=== PATIENT | male | born 1940 | race Caucasian/White ===

== ENCOUNTER → 2016-10-14 | Outpatient (CLI) | payer MEDICARE ==
[2016-10-14 10:00] LABS: ALT 37 U/L (21-72); AST 23 U/L (17-59); Alkaline Phosphatase 79 U/L (38-126); Anion Gap 12 mmol/L; Blood Urea Nitrogen 13 mg/dL (9-20); Calcium 9.6 mg/dL (8.4-10.2); Carbon Dioxide 29 mmol/L (22-30); Chloride 102 mmol/L (98-107); Cholesterol 120 mg/dL (<200); Glucose 107 mg/dL (74-99); HDL Cholesterol 40 mg/dL (40-60); Non-African American GFR(MDRD) >60 (>60 ml/min/1.73 sqM); Potassium 4.3 mmol/L (3.5-5.1); Sodium 143 mmol/L (137-145); Total Bilirubin 0.7 mg/dL (0.2-1.3); Total Protein 7.1 g/dL (6.3-8.2); Triglycerides 94 mg/dL (<150)
== END | disposition home or self-care (01) ==
LOC: LABWHC1 09:06
PROVIDERS: ATTEND Internal Medicine Interventional Cardiology
DX: E78.2 Mixed hyperlipidemia (principal)
CPT/HCPCS: 36415; 80053; 80061

== ENCOUNTER → 2017-01-10 | Outpatient (CLI) | payer MEDICARE ==
[2017-01-10 10:39] LABS: ALT 31 U/L (21-72); AST 22 U/L (17-59); Alkaline Phosphatase 88 U/L (38-126); Anion Gap 11 mmol/L; Blood Urea Nitrogen 17 mg/dL (9-20); Calcium 9.5 mg/dL (8.4-10.2); Carbon Dioxide 26 mmol/L (22-30); Chloride 106 mmol/L (98-107); Cholesterol 119 mg/dL (<200); Glucose 133 mg/dL (74-99); HDL Cholesterol 38 mg/dL (40-60); Non-African American GFR(MDRD) >60 (>60 ml/min/1.73 sqM); Potassium 4.6 mmol/L (3.5-5.1); Sodium 143 mmol/L (137-145); Total Bilirubin 0.7 mg/dL (0.2-1.3); Total Protein 7.1 g/dL (6.3-8.2); Triglycerides 99 mg/dL (<150)
== END ==
LOC: LABWHC1 08:47
PROVIDERS: ATTEND Internal Medicine Interventional Cardiology
DX: E78.2 Mixed hyperlipidemia (principal)
CPT/HCPCS: 36415; 80053; 80061

== ENCOUNTER 2017-02-25 11:44 | Inpatient (IN) | payer MEDICARE ==
[2017-02-25 20:44] LABS: Glucose,Whole Blood 136 mg/dL (75-99)
[2017-02-25] MEDS ORDERED: IV VANCOMYCIN PER PHARMACY 1 EACH MISC MISCELLANE PRN ×2 (21:13→21:19)
[2017-02-25] MEDS ORDERED: traMADol 50 MG TAB PO PRN (21:14)
[2017-02-25] MEDS ORDERED: NALOXONE 0.4 MG/ML 1 ML VIAL IV PRN (21:14)
[2017-02-25] MEDS: METOPROLOL TARTRATE 25 MG TAB PO SCH (21:56)
[2017-02-25] MEDS: SODIUM CHLORIDE 0.9% 1,000 ML IV SCH (21:57)
[2017-02-25] MEDS: ACETAMINOPHEN TAB 325 MG TAB PO PRN (21:57)
[2017-02-25 21:58] LABS: Basophils % (A) 0 %; CH 31.2; CHCM 33.6; Eosinophils % (A) 1 %; HCT 35.9 % (39.0-53.0); HDW 2.89; Luc # (Auto) 0.12; Luc % (Auto) 2; Lymphocytes # (A) 0.7 k/uL (1.0-4.8); Lymphocytes % (A) 10 %; MCH 31.1 pg (25.0-35.0); MCHC 33.3 g/dL (31.0-37.0); MCV 93.5 fL (80.0-100.0); Mean Platelet Volume 8.9; Monocytes # (A) 0.3 k/uL (0-1.0); Monocytes % (A) 5 %; Neutrophils # (A) 5.1 k/uL (1.3-7.7); Neutrophils % (A) 82 %; RBC 3.84 m/uL (4.30-5.90); WBC 6.2 k/uL (3.8-10.6); WBC (Perox) 6.46
[2017-02-25] MEDS ORDERED: VANCOMYCIN 1,250 MG in SODIUM CHLORIDE 0.9% 250 ML IVPB ONE (22:00)
[2017-02-25 22:03] LABS: ALT 55 U/L (21-72); AST 48 U/L (17-59); Alkaline Phosphatase 68 U/L (38-126); Anion Gap 8 mmol/L; Blood Urea Nitrogen 11 mg/dL (9-20); Calcium 8.5 mg/dL (8.4-10.2); Carbon Dioxide 26 mmol/L (22-30); Chloride 104 mmol/L (98-107); Glucose 156 mg/dL (74-99); Non-African American GFR(MDRD) >60 (>60 ml/min/1.73 sqM); Potassium 3.9 mmol/L (3.5-5.1); Sodium 138 mmol/L (137-145); Total Bilirubin 0.8 mg/dL (0.2-1.3); Total Protein 6.2 g/dL (6.3-8.2)
--- NOTE | 2017-02-25 22:32 | XR ---
EXAM: XR Chest, 2 Views CLINICAL HISTORY: Reason: CHF TECHNIQUE: Frontal and lateral views of the chest. COMPARISON: 08/09/16. FINDINGS: Lungs: Pulmonary vascular congestion. Mild basilar opacities may represent atelectasis, infiltrate, or edema. Pleural space: Small left pleural effusion. Heart: Upper normal. Mediastinum: Stable. Bones/joints: No acute fracture. Other findings: Stable postsurgical changes in the chest. IMPRESSION: Pulmonary vascular congestion. Mild basilar opacities may represent atelectasis, infiltrate, or edema. Small left pleural effusion.
[2017-02-25] MEDS: ceFAZolin 1,000 MG in DEXTROSE/WATER 1 50ML.BAG IVPB SCH (23:39)
[2017-02-26] MEDS: HEPARIN SODIUM,PORCINE 5,000 UNIT/ML 1 ML VIAL SQ SCH ×4 (00:09→23:17)
[2017-02-26] MEDS ORDERED: VANCOMYCIN 1,250 MG in SODIUM CHLORIDE 0.9% 250 ML IVPB SCH ×2 (01:00→12:00)
[2017-02-26 06:00] LABS: Glucose,Whole Blood 132 mg/dL (75-99)
[2017-02-26] MEDS: SODIUM CHLORIDE 0.9% 1,000 ML IV SCH (06:19)
[2017-02-26 06:32] LABS: Basophils % (A) 0 %; CH 30.9; CHCM 33.4; Eosinophils # (A) 0.1 k/uL (0-0.7); Eosinophils % (A) 1 %; HCT 33.5 % (39.0-53.0); HDW 2.97; HGB 11.2 gm/dL (13.0-17.5); Luc # (Auto) 0.18; Luc % (Auto) 3; Lymphocytes # (A) 0.8 k/uL (1.0-4.8); Lymphocytes % (A) 15 %; MCH 31.2 pg (25.0-35.0); MCHC 33.5 g/dL (31.0-37.0); MCV 92.9 fL (80.0-100.0); Mean Platelet Volume 8.5; Monocytes # (A) 0.4 k/uL (0-1.0); Monocytes % (A) 7 %; Neutrophils % (A) 73 %; RBC 3.61 m/uL (4.30-5.90); WBC 5.4 k/uL (3.8-10.6); WBC (Perox) 5.91
[2017-02-26 06:41] LABS: ALT 66 U/L (21-72); AST 58 U/L (17-59); Alkaline Phosphatase 61 U/L (38-126); Anion Gap 9 mmol/L; Blood Urea Nitrogen 10 mg/dL (9-20); Calcium 8.3 mg/dL (8.4-10.2); Carbon Dioxide 24 mmol/L (22-30); Chloride 108 mmol/L (98-107); Glucose 129 mg/dL (74-99); Non-African American GFR(MDRD) >60 (>60 ml/min/1.73 sqM); Potassium 3.7 mmol/L (3.5-5.1); Sodium 141 mmol/L (137-145); Total Bilirubin 0.7 mg/dL (0.2-1.3); Total Protein 5.6 g/dL (6.3-8.2)
[2017-02-26] MEDS: INSULIN LISPRO (humaLOG) 300 UNIT/3 ML VIAL SQ SCH ×4 (07:08→21:43)
[2017-02-26] MEDS: ASPIRIN 325 MG TAB PO SCH (09:16)
[2017-02-26] MEDS: LISINOPRIL 5 MG TAB PO SCH (09:16)
[2017-02-26] MEDS: METOPROLOL TARTRATE 25 MG TAB PO SCH ×3 (09:16→20:02)
[2017-02-26] MEDS: ceFAZolin 1,000 MG in DEXTROSE/WATER 1 50ML.BAG IVPB SCH (09:16)
[2017-02-26] MEDS: FAMOTIDINE 20 MG TAB PO SCH ×2 (09:16→20:03)
[2017-02-26] MEDS: CLOPIDOGREL 75 MG TAB PO SCH (10:10)
[2017-02-26 12:29] LABS: Glucose,Whole Blood 177 mg/dL (75-99)
[2017-02-26 14:08] LABS: Hemoglobin A1C 5.8 % (4.2-6.1)
[2017-02-26] MEDS ORDERED: FUROSEMIDE 10 MG/ML 4 ML VIAL IV STA ×2 (15:12→15:15)
[2017-02-26] MEDS ORDERED: ceFAZolin 2,000 MG in DEXTROSE/WATER 1 50ML.BAG IVPB SCH (16:19)
[2017-02-26 18:43] LABS: Glucose,Whole Blood 192 mg/dL (75-99)
[2017-02-26] MEDS: ceFAZolin 2 GM in SODIUM CHLORIDE 0.9% 100 ML IVPB SCH ×2 (18:47→23:17)
[2017-02-26] MEDS: ACETAMINOPHEN TAB 325 MG TAB PO PRN (18:49)
[2017-02-26] MEDS: ATORVASTATIN 20 MG TAB PO SCH (20:02)
[2017-02-26] MEDS: LINAGLIPTIN 5 MG TABLET PO SCH (20:02)
--- NOTE | 2017-02-26 20:12 | HP ---
DATE OF ADMISSION: 02/25/2017 The patient is a 76-year-old gentleman who was transferred from [facility]. The patient was seen in [facility] for his right lower limb cellulitis and patient was treated with initially ceftriaxone followed by vancomycin. Patient's symptoms started on Tuesday with severe pain and localized of temperature and patient had lactic acidosis and sepsis secondary to right lower limb cellulitis. Patient was given IV fluids because of lactic acidosis. Subsequently patient went into pulmonary edema and congestive heart failure exacerbation. Patient's ejection fraction in the past was essentially within normal limits. Patient probably has diastolic dysfunction and the patient yesterday had lactic acidosis because of which we gave IV fluids which resulted in pulmonary edema. Patient was started on Lasix today and the patient was resumed on cefazolin and vancomycin and infectious disease was consulted and patient may need daptomycin as patient did not have any significant improvement. Cellulitis since yesterday. It improved temporarily and has gotten worse and patient's cellulitis is quite extensive involving the whole right leg. Patient has recent CABG . Metformin is also being held because of lactic acidosis. REVIEW OF SYSTEMS: CONSTITUTIONAL: No fever, no malaise, no fatigue. HEENT: No recent visual problems or hearing problems. Denied any sore throat. CARDIOVASCULAR: As mentioned above. PULMONARY: As mentioned earlier. GASTROINTESTINAL: No diarrhea, no nausea, no vomiting, no abdominal pain. Normoactive bowel sounds. NEUROLOGICAL: No headaches, no weakness, no numbness. HEMATOLOGICAL: Denies any bleeding or petechiae. GENITOURINARY: Denies any burning micturition, frequency, or urgency. MUSCULOSKELETAL/RHEUMATOLOGICAL: Right lower extremity as mentioned above. ENDOCRINE: Denies any polyuria or polydipsia. The rest of the 14 point review of systems is negative. Home medications include: 1. Januvia. 2. Metformin. 3. Atorvastatin. 4. Prednisone. 5. Vitamin B complex. 6. Multivitamin. 7. Metoprolol 25 p.o. t.i.d. 8. Meloxicam. 9. Lisinopril. 10. Plavix. 11. Aspirin. PAST MEDICAL HISTORY: Patient has a recent coronary artery disease with a recent CABG, type 2 diabetes mellitus, hyperlipidemia, hypertension, polymyalgia rheumatica, the patient underwent CABG in month of August. Patient has aortic aneurysm repair as well. Patient had an orthopedic surgery in the past. Former smoker. Denied any alcohol abuse or any drug abuse. FAMILY HISTORY: Significant for CVA, TIA. PHYSICAL EXAMINATION: VITAL SIGNS: Temperature is 97.9, pulse of 70, respirations 16, blood pressure is 138/78, saturating at 96% on 2 L O2 nasal cannula. GENERAL: The patient is alert and oriented x3, not in any acute distress. Well developed, well nourished. HEENT: Pupils are round and equally reacting to light. EOMI. No scleral icterus. No conjunctival pallor. Normocephalic, atraumatic. No pharyngeal erythema. No thyromegaly. CARDIOVASCULAR: S1 and S2 present. No murmurs, rubs, or gallops. PULMONARY: Chest is clear to auscultation, no wheezing or crackles. ABDOMEN: Soft, nontender, nondistended, normoactive bowel sounds. No palpable organomegaly. MUSCULOSKELETAL: No joint swelling or deformity. EXTREMITIES: Patient has extensive cellulitis with localized of temperature edema and tenderness of the right lower extremity extending from the ankle area up to the knee. Circumferential. NEUROLOGICAL: Gross neurological examination did not reveal any focal deficits. SKIN: No rashes. LABORATORY DATA: CBC, CMP are abnormal for elevated chloride secondary to IV fluids. Lactic acid is 0.9. BNP is 8440. Chest x-ray did show pulmonary edema and pulmonary congestion. Patient was started on Lasix. ASSESSMENT AND PLAN: 1. Extensive cellulitis of the right lower extremity. Infectious diseases was consulted because patient did not improve with multiple antibiotics. Patient is presently on vancomycin and cefazolin, may need daptomycin instead. Blood cultures were obtained. We will also follow the blood cultures in [facility]. 2. Congestive heart failure, current diastolic dysfunction with acute exacerbation secondary to IV fluids. Patient will be started on 40 IV b.i.d. of Lasix and once his respiratory status improves, it will be switched to 40 mg oral daily and patient will repeat electrolytes tomorrow. 3. Diabetes mellitus, continue metformin because of lactic acidosis and patient will be started on sliding scale insulin and patient will be continued on Januvia. 4. Hyperlipidemia. Continue atorvastatin. 5. Recent coronary artery disease. 6. History of coronary artery bypass graft. 7. Hypertension. Lisinopril will be continued.
[2017-02-26] MEDS ORDERED: FUROSEMIDE 10 MG/ML 4 ML VIAL IV SCH (21:00)
[2017-02-26 21:41] LABS: Glucose,Whole Blood 130 mg/dL (75-99)
[2017-02-27] MEDS: ACETAMINOPHEN TAB 325 MG TAB PO PRN ×2 (01:33→20:58)
[2017-02-27 05:56] LABS: Glucose,Whole Blood 129 mg/dL (75-99)
[2017-02-27 06:11] LABS: CH 30.9; CHCM 33.8; HCT 34.2 % (39.0-53.0); HDW 3.06; HGB 11.5 gm/dL (13.0-17.5); MCH 30.9 pg (25.0-35.0); MCHC 33.7 g/dL (31.0-37.0); MCV 91.8 fL (80.0-100.0); RBC 3.72 m/uL (4.30-5.90); WBC 5.6 k/uL (3.8-10.6)
[2017-02-27] MEDS: INSULIN LISPRO (humaLOG) 300 UNIT/3 ML VIAL SQ SCH ×4 (06:24→20:58)
[2017-02-27 06:26] LABS: Anion Gap 9 mmol/L; Blood Urea Nitrogen 11 mg/dL (9-20); Calcium 8.8 mg/dL (8.4-10.2); Carbon Dioxide 27 mmol/L (22-30); Chloride 105 mmol/L (98-107); Glucose 122 mg/dL (74-99); Non-African American GFR(MDRD) >60 (>60 ml/min/1.73 sqM); Potassium 3.7 mmol/L (3.5-5.1); Sodium 141 mmol/L (137-145)
[2017-02-27] MEDS: FUROSEMIDE 10 MG/ML 4 ML VIAL IV SCH ×2 (06:45→16:15)
[2017-02-27] MEDS: HYDROcodone/APAP 5-325MG 1 EACH TAB PO PRN ×2 (06:46→16:37)
[2017-02-27] MEDS: ceFAZolin 2 GM in SODIUM CHLORIDE 0.9% 100 ML IVPB SCH ×3 (08:13→23:49)
[2017-02-27] MEDS: HEPARIN SODIUM,PORCINE 5,000 UNIT/ML 1 ML VIAL SQ SCH ×3 (08:13→23:49)
[2017-02-27] MEDS: LISINOPRIL 5 MG TAB PO SCH (08:14)
[2017-02-27] MEDS: ASPIRIN 81 MG CHEW PO SCH (08:14)
[2017-02-27] MEDS: METOPROLOL TARTRATE 25 MG TAB PO SCH ×3 (08:14→20:58)
[2017-02-27] MEDS: FAMOTIDINE 20 MG TAB PO SCH ×2 (08:14→20:58)
[2017-02-27] MEDS: CLOPIDOGREL 75 MG TAB PO SCH (08:14)
[2017-02-27 10:42] VITALS: BMI 27.3
[2017-02-27] MEDS ORDERED: VANCOMYCIN TROUGH DUE 1 EACH MISC MISCELLANE ONE (11:00)
[2017-02-27 11:45] LABS: Glucose,Whole Blood 172 mg/dL (75-99)
--- NOTE | 2017-02-27 13:06 | CONS ---
DATE OF CONSULTATION: 02/26/2017. REASON FOR CONSULTATION: Right lower extremity cellulitis. HISTORY OF PRESENT ILLNESS: The patient is a 76 -year-old male who apparently has been to [place] to his cottage. However, on arrival there, the patient apparently seemed to have a problem with fever, rigors or chills for which the patient went to the [facility] and the patient has been evaluated by the physician at that facility. The patient did have lower extremity Doppler that was negative for DVT. Chest CT was negative for PE. The patient has been diagnosed with lower extremity cellulitis. Has been treated with Rocephin, however, did not have any improvement. Subsequently switched to Vancomycin and Cefazolin. However, per family insistence, the patient has been transferred to [facility] for further work-up. The patient was continued on Vanco and Cefazolin. I was asked to see the patient for further recommendations. Patient overall fever has slightly improved. The patient denies significant chest pain or shortness of breath or cough. The patient denies any abdominal pain, nausea or vomiting or any diarrhea. Right leg swelling and redness persists though slightly decreased. The patient did have some pain especially when he stands or walks on it, lying in the bed. or touched. There is no pain. There is no significant drainage. The patient did have history of chronic swelling right leg because of the vein taken out for his bypass surgery. REVIEW OF SYSTEMS: CONSTITUTIONAL: Positive for weakness and fever. EYES: No complaint. ENT: No complaint. RESPIRATORY: No complaint. CARDIOVASCULAR: No complaint. GENITOURINARY: No complaint. GASTROINTESTINAL: No complaint. MUSCULOSKELETAL: No complaint. INTEGUMENTARY: As per HPI. PSYCHOLOGIC: No complaint. ENDOCRINE: No complaint. NEUROLOGICAL: No complaint. Past medical history significant for type 2 diabetes mellitus, hypertension, hyperlipidemia, polymyalgia rheumatica, coronary artery disease. PAST SURGICAL HISTORY: Significant for coronary artery bypass grafting, abdominal aortic aneurysm repair. SOCIAL HISTORY: Remote history of smoking. No drinking or drug use. FAMILY HISTORY: Positive for CVA and TIA. ALLERGIES: PENICILLIN, has tolerated cephalosporin without any problem. Medications currently include the patient is on: 1. Tylenol. 2. [place]. 3. Aspirin. 4. Lipitor. 5. Cefazolin 1 gram q.8. 6. He is on Plavix. 7. Pepcid. 8. Lasix. 9. Heparin. 10. Humalog. 12. Zestril. 13. Lopressor. 14. Ultram. 15. Vancomycin, pharmacy to dose. On examination, blood pressure 176/83 with a pulse of 71, temperature 98.5. She is 98% on room air. General description is an elderly male, lying in bed in no distress, no tachypnea or accessory muscles of respiration use. HEENT examination shows pallor. There is no scleral icterus. Oral mucous membranes dry. NECK: Trachea central. There is no thyromegaly. LUNGS: Unlabored breathing. Clear to auscultation anteriorly. No wheeze or crackle. HEART: S1, S2. Regular rate and rhythm. ABDOMEN: Soft, no tenderness. No guarding or rigidity. EXTREMITIES: Right leg swelling and redness mostly diffuse with warm to touch. No skin breakdown. No evidence of any athlete's foot. NEUROLOGICAL: The patient is awake, alert, and oriented times three. Mood and affect normal. LABS: Hemoglobin 11.1, white count 5.4 with a BUN of 10, creatinine 0.44. DIAGNOSTIC IMPRESSION AND PLAN: Patient with acute right lower extremity cellulitis in a patient who did have a fever of 102 degrees Fahrenheit with diffuse swelling and redness likely suspicious for a streptococcal cellulitis in a patient who did have some chronic swelling in that leg as the vein has been taken out for his bypass surgery. PLAN: 1. We will increase Cefazolin to 2 gm every eight hours and discontinue the vancomycin as less risk for Methicillin-resistant Staph aureus infection. 2. KIMI wrap From just above the toe to below the knee. 3. Marked the area of redness. 4. We will follow up on the clinical condition and cultures to further adjust medications if needed. Thank you for the consultation. We will follow this patient along with you. was present at beside. All her questions and concerns were answered. JAI
[2017-02-27 20:39] LABS: Glucose,Whole Blood 210 mg/dL (75-99)
[2017-02-27] MEDS: ATORVASTATIN 20 MG TAB PO SCH (20:58)
[2017-02-27] MEDS: LINAGLIPTIN 5 MG TABLET PO SCH (20:58)
--- NOTE | 2017-02-27 22:57 | PN ---
DATE OF SERVICE: 02/27/2017 The patient's cellulitis did improve. The patient is presently on vanco and cefazolin. Seizure symptoms did improve as well. Patient's echocardiogram showed normal ejection fraction in the past. Patient is otherwise clinically doing well. REVIEW OF SYSTEMS: CARDIOVASCULAR: No chest pain, no orthopnea, no PND, no palpitations. PULMONARY: Denied any shortness of breath. No cough or hemoptysis. GASTROINTESTINAL: No diarrhea, nausea or vomiting. No abdominal pain. Normoactive bowel sounds. NEUROLOGIC: No headaches, no weakness, no numbness. Medications were reviewed. PHYSICAL EXAMINATION: VITAL SIGNS: Temperature 96.6, pulse 67, respirations 18, blood pressure 181/88, saturating at 97% on 2 L nasal cannula. GENERAL: The patient is alert and oriented x3, not in any acute distress. Well developed, well nourished. HEENT: Pupils are round and equally reacting to light. EOMI. No scleral icterus. No conjunctival pallor. Normocephalic, atraumatic. No pharyngeal erythema. No thyromegaly. Elevated JVD. CARDIOVASCULAR: S1 and S2 present. No murmurs, rubs, or gallops. PULMONARY: Chest is clear to auscultation, no wheezing or crackles. ABDOMEN: Soft, nontender, nondistended, normoactive bowel sounds. No palpable organomegaly. MUSCULOSKELETAL: No joint swelling or deformity. EXTREMITIES: Right lower extremity significantly improved. Still has some redness and swelling of the right lower extremity. NEUROLOGICAL: Gross neurological examination did not reveal any focal deficits. SKIN: No rashes. LABORATORY DATA: CBC, CMP, no significant abnormality was appreciated. ASSESSMENT AND PLAN: 1. Extensive cellulitis of the right lower extremity which is improving at this point of time. Patient will be continued on vancomycin and cefazolin. 2. Congestive heart failure with chronic diastolic dysfunction which improved. Continue with IV Lasix for today. We will switch over to oral Lasix tomorrow. The patient has still has little bit of JVD. 3. Diabetes mellitus. Patient is not a candidate for metformin. I believe lactic acidosis actually is mostly due to metformin rather than severe sepsis. 4. Hyperlipidemia. Continue with atorvastatin. 5. Coronary artery disease with recent CABG. 6. Hypertension for which patient is on lisinopril, which will be continued.
[2017-02-28] MEDS: HYDROcodone/APAP 5-325MG 1 EACH TAB PO PRN ×3 (05:33→14:15)
[2017-02-28 06:02] LABS: Glucose,Whole Blood 120 mg/dL (75-99)
[2017-02-28 06:22] LABS: Anion Gap 10 mmol/L; Blood Urea Nitrogen 12 mg/dL (9-20); Calcium 8.9 mg/dL (8.4-10.2); Carbon Dioxide 27 mmol/L (22-30); Chloride 103 mmol/L (98-107); Glucose 118 mg/dL (74-99); Non-African American GFR(MDRD) >60 (>60 ml/min/1.73 sqM); Potassium 3.8 mmol/L (3.5-5.1); Sodium 140 mmol/L (137-145)
[2017-02-28] MEDS: FUROSEMIDE 10 MG/ML 4 ML VIAL IV SCH ×2 (06:56→17:19)
[2017-02-28] MEDS: INSULIN LISPRO (humaLOG) 300 UNIT/3 ML VIAL SQ SCH ×4 (06:57→21:53)
[2017-02-28] MEDS: CLOPIDOGREL 75 MG TAB PO SCH (08:07)
[2017-02-28] MEDS: LISINOPRIL 10 MG TAB PO SCH (08:07)
[2017-02-28] MEDS: ceFAZolin 2 GM in SODIUM CHLORIDE 0.9% 100 ML IVPB SCH ×3 (08:07→22:55)
[2017-02-28] MEDS: FAMOTIDINE 20 MG TAB PO SCH ×2 (08:07→20:22)
[2017-02-28] MEDS: ASPIRIN 81 MG CHEW PO SCH (08:07)
[2017-02-28] MEDS: HEPARIN SODIUM,PORCINE 5,000 UNIT/ML 1 ML VIAL SQ SCH ×2 (08:07→17:19)
[2017-02-28] MEDS: METOPROLOL TARTRATE 25 MG TAB PO SCH ×3 (08:07→20:22)
--- NOTE | 2017-02-28 11:16 | PN ---
DATE OF SERVICE: 02/27/2017 Reason for follow-up is right lower extremity cellulitis. INTERVAL HISTORY: The patient is afebrile. Breathing comfortably. Denies significant chest pain. No cough. Denies pain right leg area. No worsening of the redness. No diarrhea. On antibiotics. On examination, blood pressure 181/88 with a pulse of 79, temperature 96.6. He is 97% on room air. General description is an elderly male, lying in bed in no distress. RESPIRATORY SYSTEM: Unlabored breathing. Clear to auscultation anteriorly. HEART: S1, S2. Regular rate and rhythm. ABDOMEN: Soft, no tenderness. Right leg swelling and redness has slightly improved. LABS: Hemoglobin is 11.5, white count 5.6 with a BUN of 11, creatinine 0.50. DIAGNOSTIC IMPRESSION AND PLAN: Patient with acute right lower extremity cellulitis, likely streptococcal disease. The patient is to continue with cefazolin. RN has been advised to apply the Lane wrap appropriately to prevent any uneven swelling or skin breakdown. We will reevaluate the patient tomorrow. Family present at beside. All their questions were answered. JAI
--- NOTE | 2017-02-28 11:48 | P.GSCN ---
<Reina Vincent - Last Filed: 02/28/17 11:48> History of Present Illness Consult date: 02/28/17 Reason for Consult: Recent CABG, patient known to us. Requesting physician: Get Tapia History of present illness: This 76-year-old gentleman was previously being treated at a hospital in [place] for right lower extremity cellulitis. He was initially being treated with ceftriaxone and vancomycin. He was thought to have sepsis and lactic acidosis secondary to the cellulitis. Following sepsis protocol, the patient was given large doses of IV fluids and subsequently developed pulmonary edema, probable exacerbation of congestive heart failure. The patient was transferred [facility] on 02/25/2017. He was given IV Lasix with excellent diuresis and restarted on his antibiotics. Cardiothoracic surgery was consulted as this gentleman had open-heart surgery in August 2016. Review of Systems 14 point review systems was completed and was negative except as noted. - Cardiovascular Reports as per HPI - Respiratory Reports as per HPI - Integumentary Integumentary Comment(s): Right leg currently Lane wrapped. Patient states he developed redness and edema overnight. States it is possible he may have had a bug bite. Past Medical History Past Medical History: No Reported History, Chest Pain / Angina, Diabetes Mellitus, Hyperlipidemia, Hypertension Additional Past Medical History / Comment(s): polymyalgia rheumatica, coronary artery bypass 5 vessel 08-05-2016, Aortic Aneurysm repair 12-06-2016 [place] History of Any Multi-Drug Resistant Organisms: None Reported Past Surgical History: Coronary Bypass/CABG, Orthopedic Surgery Additional Past Surgical History / Comment(s): LEFT EYE SURGERY, LEFT KNEE SURGERY Past Anesthesia/Blood Transfusion Reactions: No Reported Reaction Past Psychological History: No Psychological Hx Reported Smoking Status: Former smoker Past Alcohol Use History: Daily Past Drug Use History: None Reported - Past Family History Father Family Medical History: CVA/TIA Mother Family Medical History: Diabetes Mellitus Brother(s) Family Medical History: Myocardial Infarction ([place]) Medications and Allergies Home Medications Medication Instructions Recorded Confirmed Type Glucosamine/Chondr Fry A Sod [Osteo 1 tab PO DAILY 08/02/16 02/25/17 History Bi-Flex Caplet] Meloxicam [Mobic] 7.5 mg PO BID 08/02/16 02/25/17 History Multivit-Min/FA/Lycopen/Lutein 1 tab PO DAILY 08/02/16 02/25/17 History [Centrum Silver Tablet] Vitamin B Complex 1 cap PO DAILY 08/02/16 02/25/17 History Atorvastatin [Lipitor] 20 mg PO HS 09/27/16 02/25/17 History metFORMIN HCL 500 mg PO HS 02/25/17 02/25/17 History predniSONE 2.5 mg PO MOWEFR 02/25/17 02/25/17 History sitaGLIPtin PHOSPHATE [Januvia] 50 mg PO HS 02/25/17 02/25/17 History Allergies Allergy/AdvReac Type Severity Reaction Status Date / Time Penicillins Allergy Unknown Verified 02/25/17 21:00 Surgical - Exam Vital Signs Temp Pulse Resp BP Pulse Ox 100.6 F H 82 21 152/92 97 02/25/17 21:00 02/25/17 21:00 02/25/17 21:00 02/25/17 21:00 02/25/17 21:00 - General well developed, well nourished, no distress - Eyes PERRL, normal ocular movement - ENT no hearing loss - Neck trachea midline - Respiratory normal expansion, normal respiratory effort, clear to auscultation - Cardiovascular Sternum stable. Rhythm: regular Heart Sounds: normal: S1, S2 - Abdomen Abdomen: soft, non tender, bowel sounds - Genitourinary Deferred - Rectum Deferred - Integumentary Anterior chest wall incision scar well healed - Neurologic normal coordination, normal sensation - Psychiatric oriented to time, oriented to person, oriented to place, speech is normal, memory intact Results - Labs 02/27/17 06:00 02/28/17 05:26 Abnormal Lab Results - Last 24 Hours (Table) 02/27/17 02/27/17 02/28/17 Range/Units 11:28 20:38 05: Creatinine 0.50 L (0.66-1.25) mg/dL Glucose 118 H (74-99) mg/dL POC Glucose (mg/dL) 172 H 210 H (75-99) mg/dL 02/28/17 Range/Units 06:00 Creatinine (0.66-1.25) mg/dL Glucose (74-99) mg/dL POC Glucose (mg/dL) 120 H (75-99) mg/dL Microbiology - Last 24 Hours (Table) 02/25/17 21:35 Blood Culture - Preliminary Blood No Growth after 48 hours Diabetes panel 02/28/17 Range/Units 05:26 Sodium 140 (137-145) mmol/L Potassium 3.8 (3.5-5.1) mmol/L Chloride 103 (98-107) mmol/L Carbon Dioxide 27 (22-30) mmol/L BUN 12 (9-20) mg/dL Creatinine 0.50 L (0.66-1.25) mg/dL Glucose 118 H (74-99) mg/dL Calcium 8.9 (8.4-10.2) mg/dL Calcium panel 02/28/17 Range/Units 05:26 Calcium 8.9 (8.4-10.2) mg/dL Pituitary panel 02/28/17 Range/Units 05:26 Sodium 140 (137-145) mmol/L Potassium 3.8 (3.5-5.1) mmol/L Chloride 103 (98-107) mmol/L Carbon Dioxide 27 (22-30) mmol/L BUN 12 (9-20) mg/dL Creatinine 0.50 L (0.66-1.25) mg/dL Glucose 118 H (74-99) mg/dL Calcium 8.9 (8.4-10.2) mg/dL Adrenal panel 02/28/17 Range/Units 05:26 Sodium 140 (137-145) mmol/L Potassium 3.8 (3.5-5.1) mmol/L Chloride 103 (98-107) mmol/L Carbon Dioxide 27 (22-30) mmol/L BUN 12 (9-20) mg/dL Creatinine 0.50 L (0.66-1.25) mg/dL Glucose 118 H (74-99) mg/dL Calcium 8.9 (8.4-10.2) mg/dL - Imaging Chest x-ray: image reviewed Assessment and Plan (1) CHF (congestive heart failure) Status: Acute (2) Cellulitis Status: Acute (3) Diabetes Status: Acute (4) HTN (hypertension) Status: Acute (5) Hyperlipemia Status: Acute (6) S/P CABG (coronary artery bypass graft) Status: Acute Plan: 1. Continue aspirin, statin, Plavix, heparin subcu, lisinopril, beta cody. 2. Continue Lasix. 3. Encourage incentive spirometry use. 4. Increase activity, encourage ambulation. 5. Medical management/antibiotic therapy per primary care service. 6. Labs/diagnostics reviewed. Will discuss the case with cardiothoracic surgeon. Likely no intervention necessary from our standpoint. We will continue to see as needed. Thank you Dr. Tapia for this consult. Please contact us with any questions or concerns. Time with Patient: Greater than 30 <Scott Cooper - Last Filed: 02/28/17 12:15> Surgical - Exam Vital Signs Temp Pulse Resp BP Pulse Ox 100.6 F H 82 21 152/92 97 02/25/17 21:00 02/25/17 21:00 02/25/17 21:00 02/25/17 21:00 02/25/17 21:00 Results - Labs 02/27/17 06:00 02/28/17 05:26 Abnormal Lab Results - Last 24 Hours (Table) 02/27/17 02/28/17 02/28/17 Range/Units 20:38 05: 06:00 Creatinine 0.50 L (0.66-1.25) mg/dL Glucose 118 H (74-99) mg/dL POC Glucose (mg/dL) 210 H 120 H (75-99) mg/dL 02/28/17 Range/Units 11:50 Creatinine (0.66-1.25) mg/dL Glucose (74-99) mg/dL POC Glucose (mg/dL) 163 H (75-99) mg/dL Microbiology - Last 24 Hours (Table) 02/25/17 21:35 Blood Culture - Preliminary Blood No Growth after 48 hours Diabetes panel 02/28/17 Range/Units 05:26 Sodium 140 (137-145) mmol/L Potassium 3.8 (3.5-5.1) mmol/L Chloride 103 (98-107) mmol/L Carbon Dioxide 27 (22-30) mmol/L BUN 12 (9-20) mg/dL Creatinine 0.50 L (0.66-1.25) mg/dL Glucose 118 H (74-99) mg/dL Calcium 8.9 (8.4-10.2) mg/dL Calcium panel 02/28/17 Range/Units 05:26 Calcium 8.9 (8.4-10.2) mg/dL Pituitary panel 02/28/17 Range/Units 05:26 Sodium 140 (137-145) mmol/L Potassium 3.8 (3.5-5.1) mmol/L Chloride 103 (98-107) mmol/L Carbon Dioxide 27 (22-30) mmol/L BUN 12 (9-20) mg/dL Creatinine 0.50 L (0.66-1.25) mg/dL Glucose 118 H (74-99) mg/dL Calcium 8.9 (8.4-10.2) mg/dL Adrenal panel 02/28/17 Range/Units 05:26 Sodium 140 (137-145) mmol/L Potassium 3.8 (3.5-5.1) mmol/L Chloride 103 (98-107) mmol/L Carbon Dioxide 27 (22-30) mmol/L BUN 12 (9-20) mg/dL Creatinine 0.50 L (0.66-1.25) mg/dL Glucose 118 H (74-99) mg/dL Calcium 8.9 (8.4-10.2) mg/dL Assessment and Plan Plan: The patient was seen and examined. I agree with the above assessment and plan. He is well-known to our service from previous coronary artery bypass surgery performed in August 2016. He appears fully recovered from that surgery and his sternal wound is completely healed. He was readmitted with cellulitis of his right lower extremity which I believe is unrelated to his surgery. He is currently on antibiotics as directed by the primary service. There is no need for intervention on my part. Thank you for allowing me to participate in the care of this patient.
[2017-02-28 11:51] LABS: Glucose,Whole Blood 163 mg/dL (75-99)
--- NOTE | 2017-02-28 14:18 | XR ---
EXAMINATION TYPE: XR chest 1V DATE OF EXAM: 02/28/2017 1:55 PM COMPARISON: 02/25/2017 HISTORY: Cellulitis and the heart failure TECHNIQUE: Single frontal view of the chest is obtained. FINDINGS: There is no heart failure nor confluent pneumonic infiltrate. There are sternal wires. The re are chest leads. I see no definite pleural effusion. IMPRESSION: No active cardiopulmonary disease. There is clearing of the heart failure compared to la st exam.
[2017-02-28 16:45] LABS: Glucose,Whole Blood 101 mg/dL (75-99)
[2017-02-28] MEDS: CLINDAMYCIN 600 MG in DEXTROSE 5% IN WATER 50 ML IVPB SCH ×2 (18:33)
[2017-02-28] MEDS: LINAGLIPTIN 5 MG TABLET PO SCH (20:22)
[2017-02-28] MEDS: ATORVASTATIN 20 MG TAB PO SCH (20:22)
[2017-02-28 20:49] LABS: Glucose,Whole Blood 172 mg/dL (75-99)
--- NOTE | 2017-02-28 20:57 | PN ---
The patient is clinically doing well today and his redness improved and heart failure improved. REVIEW OF SYSTEMS: CARDIOVASCULAR: No chest pain, no orthopnea, no PND, no palpitations. PULMONARY: Denied any shortness of breath. No cough or hemoptysis. GASTROINTESTINAL: No diarrhea, nausea or vomiting. No abdominal pain. Normoactive bowel sounds. NEUROLOGIC: No headaches, no weakness, no numbness. Medications were reviewed. PHYSICAL EXAMINATION: VITAL SIGNS: Temperature 96.8, pulse of 67, respiratory rate of 18, blood pressure 142/78, saturating at 94% on room air. GENERAL: The patient is alert and oriented x3, not in any acute distress. Well developed, well nourished. HEENT: Pupils are round and equally reacting to light. EOMI. No scleral icterus. No conjunctival pallor. Normocephalic, atraumatic. No pharyngeal erythema. No thyromegaly. CARDIOVASCULAR: S1 and S2 present. Patient still has ( ) significantly improved. PULMONARY: Chest is clear to auscultation, no wheezing or crackles. ABDOMEN: Soft, nontender, nondistended, normoactive bowel sounds. No palpable organomegaly. MUSCULOSKELETAL: No joint swelling or deformity. EXTREMITIES: Right lower extremity cellulitis did improve. NEUROLOGICAL: Gross neurological examination did not reveal any focal deficits. SKIN: No rashes. ASSESSMENT AND PLAN: 1. ( ) cellulitis which is improving. Continue vancomycin and Cefazolin. 2. Congestive heart failure, chronic diastolic dysfunction with acute exacerbation. Continue with one more day of Lasix. Patient will be switched to oral Lasix tomorrow. 3. Diabetes mellitus type 2. The patient has lactic acidosis, will not be a candidate for most probably he will not be a candidate for metformin. Will continue sliding scale for now. Blood sugars are fairly well controlled. 4. Hyperlipidemia continue with atorvastatin. 5. Coronary artery disease with recent coronary artery bypass grafting. 6. Hypertension, for which patient is on Lisinopril which we will be continued.
[2017-02-28] MEDS: ACETAMINOPHEN TAB 325 MG TAB PO PRN (21:54)
[2017-03-01] MEDS: CLINDAMYCIN 600 MG in DEXTROSE 5% IN WATER 50 ML IVPB SCH ×6 (00:17→15:00)
[2017-03-01] MEDS: HEPARIN SODIUM,PORCINE 5,000 UNIT/ML 1 ML VIAL SQ SCH ×3 (00:19→15:58)
[2017-03-01] MEDS: HYDROcodone/APAP 5-325MG 1 EACH TAB PO PRN ×2 (02:27→10:01)
[2017-03-01 05:43] LABS: Glucose,Whole Blood 122 mg/dL (75-99)
[2017-03-01] MEDS: INSULIN LISPRO (humaLOG) 300 UNIT/3 ML VIAL SQ SCH ×2 (05:50→12:28)
[2017-03-01] MEDS: FUROSEMIDE 10 MG/ML 4 ML VIAL IV SCH (06:19)
[2017-03-01 07:39] VITALS: RESP 18; TEMP 98
[2017-03-01] MEDS: ceFAZolin 2 GM in SODIUM CHLORIDE 0.9% 100 ML IVPB SCH ×2 (07:45→15:00)
[2017-03-01] MEDS: LISINOPRIL 10 MG TAB PO SCH (07:46)
[2017-03-01] MEDS: CLOPIDOGREL 75 MG TAB PO SCH (07:46)
[2017-03-01] MEDS: FAMOTIDINE 20 MG TAB PO SCH (07:46)
[2017-03-01] MEDS: ASPIRIN 81 MG CHEW PO SCH (07:46)
[2017-03-01] MEDS: METOPROLOL TARTRATE 25 MG TAB PO SCH ×2 (07:46→15:01)
--- NOTE | 2017-03-01 10:09 | PN ---
DATE OF SERVICE: 02/28/2017 Reason for followup is right lower extremity cellulitis. INTERVAL HISTORY: The patient is afebrile. He has been breathing comfortably. Denies significant chest or shortness of breath or cough. No abdominal pain or any worsening pain in the right leg area. Overall, swelling has slightly improved. On examination, blood pressure 160/75 with a pulse of 76, temperature of 96.8. He 97% on room air. General description is an elderly male, lying in bed in no distress. RESPIRATORY SYSTEM: Unlabored breathing. Clear to auscultation. HEART: S1, S2. Regular rate and rhythm. ABDOMEN: Soft, no tenderness. Right leg swelling was mostly at the ankle area, but the redness has slightly decreased. LABS: BUN of 12 with a creatinine 0.50. DIAGNOSTIC IMPRESSION AND PLAN: Patient with acute right lower extremity cellulitis with diffuse swelling and redness likely streptococcal disease. The patient seems to have slow response to the cefazolin, hence will add clindamycin. Continue with the Lane wrap. Appropriate application of the same has been explained to the RN one more time and will evaluate the patient tomorrow. Continue supportive care.
[2017-03-01 11:55] LABS: Glucose,Whole Blood 129 mg/dL (75-99)
[2017-03-01 15:08] VITALS: BP 132/75; PULSE 70
--- NOTE | 2017-03-01 16:53 | PN ---
DATE OF SERVICE: 03/01/2017 Reason for follow-up is right lower extremity cellulitis. INTERVAL HISTORY: The patient is afebrile. He is currently breathing comfortably. Denies significant chest pain, shortness of breath or cough. No abdominal pain or any worsening pain in the right leg area. On examination, blood pressure is 127/76 with a pulse of 74, temperature 98. He is 100% on room air. General description is an elderly male, lying in bed in no distress. RESPIRATORY SYSTEM: Unlabored breathing. Clear to auscultation anteriorly. HEART: S1, S2. Regular rate and rhythm. ABDOMEN: Soft, no tenderness. Right leg mostly with bruised features. Redness has improved though. LABS: White count normal at 5.6, blood pressure has been negative. DIAGNOSTIC IMPRESSION AND PLAN: Patient with right lower extremity cellulitis. Patient did show overall clinical improvement. Will be able to finish therapy with oral Keflex 500 mg 3 times day for another 10 days with outpatient follow-up. Continue supportive care. MTDD
[2017-03-01 17:05] LABS: Glucose,Whole Blood 146 mg/dL (75-99)
--- NOTE | 2017-03-01 18:36 | P.DS ---
Providers Date of admission: 02/25/17 19:43 Expected date of discharge: 03/01/17 Attending physician: Get Tapia Consults: 02/25/17 21:18 Consult Physician Routine Consulting Provider: Nestor Jerome Consult Reason/Comments: Cellulitis Do you want consulting provider notified?: Yes 02/26/17 15:15 Consult Physician Routine Consulting Provider: Scott Cooper Consult Reason/Comments: Recent CABG Do you want consulting provider notified?: Yes Primary care physician: [facility] Course: Final Diagnoses: 1. Acute extensive right lower extremity cellulitis, improving. 2. Acute on chronic exacerbation CHF, diastolic dysfunction 3. Diabetes mellitus type 2, patient had lactic acidosis therefore metformin discontinued 4. Hyperlipidemia 5. CAD with recent CABG 6. Hypertension Hospital course: This a 76-year-old gentleman admitted with acute right lower extremity cellulitis accompanied by fevers and pain, lactic acidosis, acute CHF and multiple other medical issues. Initially presented to [place], DVT and PE ruled out with Doppler and chest CT. Initially treated with Rocephin with no improvement. Antibiotics changed to cefazolin and vancomycin and transferred to [facility]. Evaluated by infectious disease and patient continued on vancomycin and cefazolin with clindamycin later added to antibiotic regime. Received IV fluids for lactic acidosis and developed pulmonary edema/CHF exacerbation. Recent EF essentially within normal limits, diuresed well with Lasix. Evaluated by cardiothoracic surgery; right lower extremity cellulitis believed to be unrelated to his prior surgery. Significant clinical improvement and patient has been cleared for discharge by both cardiothoracic surgery and infectious disease. Patient is being discharged home in a stable condition with guarded prognosis. Microbiology 02/25/17 21:35 Blood Blood Culture - Preliminary No Growth after 72 hours The impression and plan of care has been dictated as directed as a scribe. : I performed a H&P examination of this patient and discussed the same with the dictator. I agree with the dictator's note. Any additional findings/opinions/ etc. will be noted. Patient Condition at Discharge: Stable Plan - Discharge Summary New Discharge Prescriptions: Cephalexin [Keflex] 500 mg PO Q8HR #30 cap Furosemide [Lasix] 40 mg PO DAILY #30 tablet HYDROcodone/APAP 5-325MG [Butler 5-325] 1 each PO Q6H PRN #20 tab PRN Reason: Moderate Pain Linagliptin [Tradjenta] 5 mg PO HS #30 tab Lisinopril [Zestril] 10 mg PO DAILY #30 tab Discharge Medication List Glucosamine/Chondr Fry A Sod [Osteo Bi-Flex Caplet] 1 tab PO DAILY 08/02/16 [ History] Multivit-Min/FA/Lycopen/Lutein [Centrum Silver Tablet] 1 tab PO DAILY 08/02/16 [ History] Vitamin B Complex 1 cap PO DAILY 08/02/16 [History] Clopidogrel [Plavix] 75 mg PO DAILY #90 tab 08/10/16 [Rx] Metoprolol Tartrate [Lopressor] 25 mg PO TID #90 tab 08/10/16 [Rx] Atorvastatin [Lipitor] 20 mg PO HS 09/27/16 [History] predniSONE 2.5 mg PO MOWEFR 02/25/17 [History] Aspirin 81 mg PO DAILY 03/01/17 [Rx] Cephalexin [Keflex] 500 mg PO Q8HR #30 cap 03/01/17 [Rx] Furosemide [Lasix] 40 mg PO DAILY #30 tablet 03/01/17 [Rx] HYDROcodone/APAP 5-325MG [Butler 5-325] 1 each PO Q6H PRN #20 tab 03/01/17 [Rx] Linagliptin [Tradjenta] 5 mg PO HS #30 tab 03/01/17 [Rx] Lisinopril [Zestril] 10 mg PO DAILY #30 tab 03/01/17 [Rx] Follow up Appointment(s)/Referral(s): Guanaco Levine DO [Primary Care Provider] - 3 Days Nestor Jerome MD [STAFF PHYSICIAN] - 1 Week Ambulatory/Diagnostic Orders: Complete Blood Count w/diff [LAB.AMB] Time Frame: 3 Days, Location: Determined By Patient Patient Instructions/Handouts: Heart Failure (DC), Cellulitis (DC) Activity/Diet/Wound Care/Special Instructions: Antibiotics/wound care as per infectious disease Diet: Consistent carb. Metformin discontinued as patient had lactic acidosis. Accu-Cheks before meals and at bedtime Activity: Limited until follow up Discharge Disposition: HOME SELF-CARE
== END 2017-03-01 17:53 | disposition home or self-care (01) | DRG 602 ==
LOC: 6SEL 19:43
PROVIDERS: ADMIT Internal Medicine; ATTEND Internal Medicine
DX: L03.115 Cellulitis of right lower limb (principal); I50.33 Acute on chronic diastolic (congestive) heart failure; E87.2 Acidosis; R56.9 Unspecified convulsions; E11.9 Type 2 diabetes mellitus without complications; E78.5 Hyperlipidemia, unspecified; I25.10 Atherosclerotic heart disease of native coronary artery without angina pectoris; B95.5 Unspecified streptococcus as the cause of diseases classified elsewhere; I11.0 Hypertensive heart disease with heart failure; M35.3 Polymyalgia rheumatica; T38.3X5A Adverse effect of insulin and oral hypoglycemic [antidiabetic] drugs, initial encounter; Z79.84 Long term (current) use of oral hypoglycemic drugs; Z79.52 Long term (current) use of systemic steroids; Z79.899 Other long term (current) drug therapy; Z88.0 Allergy status to penicillin; Z95.1 Presence of aortocoronary bypass graft; Z87.891 Personal history of nicotine dependence; Z82.49 Family history of ischemic heart disease and other diseases of the circulatory system; Y92.009 Unspecified place in unspecified non-institutional (private) residence as the place of occurrence of the external cause
CPT/HCPCS: 71010; 71020; 80048; 80053; 83036; 83605; 83880; 85025; 85027; 87040

== ENCOUNTER → 2017-08-29 | Outpatient (CLI) | payer MEDICARE ==
[2017-08-29 10:13] LABS: ALT 42 U/L (21-72); AST 24 U/L (17-59); Alkaline Phosphatase 72 U/L (38-126); Anion Gap 9 mmol/L; Blood Urea Nitrogen 25 mg/dL (9-20); Calcium 9.5 mg/dL (8.4-10.2); Carbon Dioxide 26 mmol/L (22-30); Chloride 106 mmol/L (98-107); Cholesterol 150 mg/dL (<200); Glucose 126 mg/dL (74-99); HDL Cholesterol 37 mg/dL (40-60); Non-African American GFR(MDRD) >60 (>60 ml/min/1.73 sqM); Potassium 4.6 mmol/L (3.5-5.1); Sodium 141 mmol/L (137-145); Total Bilirubin 0.4 mg/dL (0.2-1.3); Total Protein 6.8 g/dL (6.3-8.2)
== END | disposition home or self-care (01) ==
LOC: LABWHC1 09:12
PROVIDERS: ATTEND Internal Medicine Interventional Cardiology
DX: E78.2 Mixed hyperlipidemia (principal)
CPT/HCPCS: 36415; 80053; 80061

== ENCOUNTER → 2017-12-12 | Outpatient (CLI) | payer MEDICARE ==
[2017-12-12 10:27] LABS: Basophils % (A) 0 %; Eosinophils # (A) 0.1 k/uL (0-0.7); Eosinophils % (A) 2 %; HCT 39.5 % (39.0-53.0); HGB 13.5 gm/dL (13.0-17.5); Lymphocytes # (A) 1.2 k/uL (1.0-4.8); Lymphocytes % (A) 23 %; MCH 31.2 pg (25.0-35.0); MCHC 34.1 g/dL (31.0-37.0); MCV 91.6 fL (80.0-100.0); Mean Platelet Volume 9.2; Monocytes # (A) 0.5 k/uL (0-1.0); Monocytes % (A) 9 %; Neutrophils # (A) 3.4 k/uL (1.3-7.7); Neutrophils % (A) 64 %; Platelet Count 142 k/uL (150-450); RBC 4.32 m/uL (4.30-5.90); RDW 13.2 % (11.5-15.5); WBC 5.4 k/uL (3.8-10.6)
[2017-12-12 12:57] LABS: Erythrocyte Sedimentation Rate 12 mm/hr (0-15)
== END | disposition home or self-care (01) ==
LOC: LABWHC1 09:43
PROVIDERS: ATTEND Internal Medicine Rheumatology
DX: M06.4 Inflammatory polyarthropathy (principal)
CPT/HCPCS: 36415; 85025; 85652; 86140

== ENCOUNTER → 2018-03-18 | Outpatient (CLI) | payer MEDICARE ==
[2018-03-18 10:32] LABS: ALT 40 U/L (21-72); AST 23 U/L (17-59); Cholesterol 127 mg/dL (<200); HDL Cholesterol 36 mg/dL (40-60); LDL Cholesterol,Calculated 74 mg/dL (0-99); Triglycerides 84 mg/dL (<150)
== END | disposition home or self-care (01) ==
LOC: LABWHC1 08:48
PROVIDERS: ATTEND Nurse Practitioner Adult Health
DX: E78.2 Mixed hyperlipidemia (principal)
CPT/HCPCS: 36415; 80061; 84450; 84460

== ENCOUNTER 2018-04-27 16:37 | Emergency (ER) | payer MEDICARE ==
[2018-04-27 16:58] VITALS: BP 121/71; PULSE 76; RESP 18; TEMP 98.4
--- NOTE | 2018-04-27 18:27 | ED ---
Upper Extremity HPI - General Chief Complaint: Extremity Injury, Upper Stated Complaint: left shoulder dislocation Time Seen by Provider: 04/27/18 17:58 Source: patient, RN notes reviewed, old records reviewed Mode of arrival: ambulatory Limitations: no limitations - History of Present Illness Initial Comments: Patient is a 77 year old male with CC of left shoulder pain and a popping sensation while at work today. 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 Patient reports that he is right handed. History of R rotator cuff tear, and was followed by Dr. Goode at the time. At this time he complains of pain with any movement of shoulder. No paresthesia. - Related Data Home Medications Medication Instructions Recorded Confirmed Atorvastatin [Lipitor] 20 mg PO HS 09/27/16 04/27/18 predniSONE 2.5 mg PO MOWEFR 02/25/17 04/27/18 Meloxicam [Mobic] 7.5 - 15 mg PO DAILY 04/27/18 04/27/18 Potassium Chloride ER [K-Dur 20] 20 meq PO DAILY 04/27/18 04/27/18 metFORMIN HCL 1,000 mg PO DAILY 04/27/18 04/27/18 sitaGLIPtin [Januvia] 50 mg PO DAILY 04/27/18 04/27/18 Previous Rx's Medication Instructions Recorded Clopidogrel [Plavix] 75 mg PO DAILY #90 tab 08/10/16 Metoprolol Tartrate [Lopressor] 25 mg PO TID #90 tab 08/10/16 Aspirin 81 mg PO DAILY 03/01/17 Furosemide [Lasix] 40 mg PO DAILY #30 tablet 03/01/17 Lisinopril [Zestril] 10 mg PO DAILY #30 tab 03/01/17 traMADol HCl [Ultram] 50 mg PO Q4HR PRN 3 Days #18 tab 04/27/18 Allergies Allergy/AdvReac Type Severity Reaction Status Date / Time Penicillins Allergy Unknown Verified 04/27/18 16:58 Review of Systems ROS Statement: Those systems with pertinent positive or pertinent negative responses have been documented in the HPI. ROS Other: All systems not noted in ROS Statement are negative. Constitutional: Denies: fever Eyes: Denies: eye pain ENT: Denies: throat pain Respiratory: Denies: cough, dyspnea Cardiovascular: Denies: chest pain, palpitations Endocrine: Denies: fatigue Gastrointestinal: Denies: abdominal pain Genitourinary: Denies: dysuria Musculoskeletal: Denies: back pain Past Medical History Past Medical History: No Reported History, Chest Pain / Angina, Diabetes Mellitus, Hyperlipidemia, Hypertension Additional Past Medical History / Comment(s): polymyalgia rheumatica, coronary artery bypass 5 vessel 08-05-2016, Aortic Aneurysm repair 12-06-2016 Holly Puga History of Any Multi-Drug Resistant Organisms: None Reported Past Surgical History: Coronary Bypass/CABG, Heart Catheterization With Stent, Orthopedic Surgery Additional Past Surgical History / Comment(s): LEFT EYE SURGERY, LEFT KNEE SURGERY, triple A repair Past Anesthesia/Blood Transfusion Reactions: No Reported Reaction Past Psychological History: No Psychological Hx Reported Smoking Status: Current some day smoker Past Alcohol Use History: Occasional Past Drug Use History: None Reported - Past Family History Father Family Medical History: CVA/TIA Mother Family Medical History: Diabetes Mellitus Brother(s) Family Medical History: Myocardial Infarction ([place]) General Exam - General Exam Comments Initial Comments: 77 year old male, no acute distress. Limitations: no limitations General appearance: alert, in no apparent distress Head exam: Present: atraumatic, normocephalic, normal inspection Eye exam: Present: normal appearance, PERRL, EOMI. Absent: scleral icterus, conjunctival injection, periorbital swelling ENT exam: Present: normal exam, mucous membranes moist Neck exam: Present: normal inspection. Absent: tenderness, meningismus, lymphadenopathy Respiratory exam: Present: normal lung sounds bilaterally. Absent: respiratory distress, wheezes, rales, rhonchi, stridor Cardiovascular Exam: Present: regular rate, normal rhythm, normal heart sounds. Absent: systolic murmur, diastolic murmur, rubs, gallop, clicks Left Shoulder Exam: Present: tenderness (tender over Anterior glenohumeral joint. Unable to ). Absent: full ROM (Unable to preform any ROM due to pain. Patient yells in pain with passive ROM. ), swelling, abrasion, laceration, ecchymosis Upper Arm exam: Present: normal inspection, full ROM Elbow exam: Present: normal inspection, full ROM Forearm Wrist exam: Present: normal inspection, full ROM Neuro motor exam: Present: wrist extension intact, thumb opposition intact, thumb IP flexion intact, thumb adduction intact, fingers 2-5 abduction intact Neurosensory exam: Present: radial nerve intact, ulnar nerve intact, median nerve intact Vascular: Present: normal capillary refill Neurological exam: Present: alert, oriented X3, CN II-XII intact Psychiatric exam: Present: normal affect, normal mood Skin exam: Present: warm, dry, intact, normal color. Absent: rash Course Vital Signs 04/27/18 16:54 Temperature 98.4 F Pulse Rate 76 Respiratory 18 Rate Blood Pressure 121/71 O2 Sat by Pulse 96 Oximetry Procedures - Orthopedic Splinting/Casting Injury #1 Side: left Upper Extremity Injury Location: shoulder Upper Extremity Immobilizer: sling/shoulder immobilizer Medical Decision Making - Medical Decision Making 77 year old male with sudden onset left shoulder pain and popping sensation while at work today. He was lifting above his head and felt a pop. He has normal xray. Patient has severe pain with any ROM of shoulder. 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 Patient placed in shoulder immobilzer, and discharged with antiinflammatory pain medication and tramadol. Signed opiod contract. - Radiology Data Radiology results: report reviewed L shoulder xray is negative for acute disease. Disposition Clinical Impression: Left shoulder pain, Rotator cuff dysfunction Disposition: HOME SELF-CARE Condition: Good Instructions: Shoulder Sprain (ED) Additional Instructions: Patient advised to follow-up with primary care physician and ortho. Return to the emergency department if any alarming signs or symptoms occur. Prescriptions: traMADol HCl [Ultram] 50 mg PO Q4HR PRN 3 Days #18 tab PRN Reason: Pain Is patient prescribed a controlled substance at d/c from ED?: Yes When asked, does pt state using other controlled substances?: No If prescribed controlled substance>3 days was MAPS reviewed?: Prescribed <3 Days If opioid is for acute pain is fill amount 7 days or less?: Yes If Rx opioid, was Start Talking consent form obtained?: Yes Referrals: Guanaco Levine DO [Primary Care Provider] - 1-2 days Arpit Piña MD [Medical Doctor] - 1-2 days Time of Disposition: 18:40
--- NOTE | 2018-04-27 18:35 | XR ---
PROCEDURE: XR shoulder complete LT 3 views DATE AND TIME: 04/27/2018 5:19 PM REFERRING PHYSICIAN: Jorgito Kaiser DO CLINICAL INDICATION: PHH, Pain TECHNIQUE: Department protocol. COMPARISON: None FINDINGS: There is no fracture or malalignment. The soft tissues are unremarkable. IMPRESSION: NO ACUTE PROCESS.
== END 2018-04-27 18:55 | disposition home or self-care (01) ==
LOC: EC 16:37
DX: S46.002A Unspecified injury of muscle(s) and tendon(s) of the rotator cuff of left shoulder, initial encounter (principal); I20.9 Angina pectoris, unspecified; E11.9 Type 2 diabetes mellitus without complications; E78.5 Hyperlipidemia, unspecified; F17.200 Nicotine dependence, unspecified, uncomplicated; Z95.1 Presence of aortocoronary bypass graft; Z95.5 Presence of coronary angioplasty implant and graft; Z98.890 Other specified postprocedural states; Z79.1 Long term (current) use of non-steroidal anti-inflammatories (NSAID); Z79.52 Long term (current) use of systemic steroids; Z79.84 Long term (current) use of oral hypoglycemic drugs; Z79.899 Other long term (current) drug therapy; Z88.0 Allergy status to penicillin; X50.1XXA Overexertion from prolonged static or awkward postures, initial encounter; Y92.69 Other specified industrial and construction area as the place of occurrence of the external cause; Y99.0 Civilian activity done for income or pay
CPT/HCPCS: 99284

== ENCOUNTER → 2018-05-23 | Outpatient (CLI) | payer MEDICARE ==
--- NOTE | 2018-05-23 22:46 | MR ---
EXAMINATION TYPE: MR shoulder LT wo con DATE OF EXAM: 05/23/2018 COMPARISON: Shoulder x-ray April 27, 2018 HISTORY: Pain, sprain, degenerative joint disease, primary osteoarthritis, torn rotator cuff, and spr ain of left rotator cuff capsule all PER order. Pain after injury 3 weeks ago. TECHNIQUE: Multiplanar, multisequence imaging of the left shoulder is performed without contrast. FINDINGS: Rotator Cuff: There is full-thickness retracted tear supraspinatus tendon to the distal clavicle leve l over 5 cm short of humeral head attachment with stump noted paracoronal image 15. There is advanced atrophy of these supraspinatus muscle bulk consistent with chronic tear. There is marked abnormal fluid signal within the infraspinatus and teres minor muscle bulk and surrou nding tissue. There is suspected full-thickness retracted acute tear of the infraspinatus tendon as i nfraspinatus muscle bulk is preserved. Teres minor tendon is intact. Subscapularis tendon is intact s een best on axial image 14. Acromioclavicular Joint: Moderate joint space loss is seen. No significant spurring is noted. Inferio r fat plane is effaced anteriorly. Glenohumeral Joint: Mild to moderate joint space loss with small joint effusion. No significant spurr ing. High riding humeral head is noted. Labrum: Degenerative tear with blunted appearance and increased signal in the superior labrum is pres ent. Biceps Tendon: The long head of biceps is in normal location within bicipital groove. Bone marrow signal: No focal abnormal marrow signal is appreciated. Other: No additional significant abnormality is appreciated. IMPRESSION: 1. Acute full thickness tear of infraspinatus tendon with evidence of instability as there is superio r displacement of the humeral head. There is chronic full-thickness retracted tear of supraspinatus t endon. There is intramuscular edema and surrounding edema level of teres minor which is intact.
== END | disposition home or self-care (01) ==
LOC: RADMRIMAIN 17:28
PROVIDERS: ATTEND Orthopaedic Surgery
DX: S46.812A Strain of other muscles, fascia and tendons at shoulder and upper arm level, left arm, initial encounter (principal); M75.122 Complete rotator cuff tear or rupture of left shoulder, not specified as traumatic; M25.812 Other specified joint disorders, left shoulder

== ENCOUNTER → 2018-05-24 | Outpatient (CLI) | payer MEDICARE ==
[2018-05-24 10:15] LABS: ALT 38 U/L (21-72); AST 21 U/L (17-59); Alkaline Phosphatase 85 U/L (38-126); Anion Gap 8 mmol/L; Blood Urea Nitrogen 21 mg/dL (9-20); Calcium 9.3 mg/dL (8.4-10.2); Carbon Dioxide 25 mmol/L (22-30); Chloride 108 mmol/L (98-107); Cholesterol 127 mg/dL (<200); Glucose 151 mg/dL (74-99); HDL Cholesterol 32 mg/dL (40-60); LDL Cholesterol,Calculated 78 mg/dL (0-99); Potassium 4.3 mmol/L (3.5-5.1); Sodium 141 mmol/L (137-145); Total Bilirubin 0.6 mg/dL (0.2-1.3); Total Protein 6.7 g/dL (6.3-8.2); Triglycerides 87 mg/dL (<150)
== END | disposition home or self-care (01) ==
LOC: LABWHC1 08:33
PROVIDERS: ATTEND Internal Medicine Interventional Cardiology
DX: E78.2 Mixed hyperlipidemia (principal)
CPT/HCPCS: 36415; 80053; 80061

== ENCOUNTER 2018-06-11 11:47 | Inpatient (IN) | payer MEDICARE ==
[2018-06-11] MEDS ORDERED: SODIUM CHLORIDE 0.9% 500 ML IV STA (12:07)
--- NOTE | 2018-06-11 12:11 | ED ---
General Adult HPI - General Chief complaint: Extremity Problem,Nontraumatic Stated complaint: Numbness in Arm Time Seen by Provider: 06/11/18 11:50 Source: patient, RN notes reviewed Mode of arrival: wheelchair Limitations: no limitations - History of Present Illness Initial comments: This is a 77-year-old male with past medical history significant for coronary artery disease diabetes high blood pressure and high cholesterol. Patient also has polymyalgia rheumatica. Patient comes into the emergency department because he woke up this morning and had significant weakness in his right arm and hand. 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 Patient thought those symptoms resolved but since he still remained a little bit he decided come to the emergency department. Patient states it has improved but it's not back to normal. Patient woke up this morning at 7:00. Patient denies any chest pain palpitations difficulty breathing shortest breath per patient denies any visual disturbance slurred speech or any other focal weakness or numbness. Patient denies any headache patient denies any near syncopal episode or syncopal episode. Patient denies any recent fever chills or cough. Patient denies any abdominal pain patient denies nausea vomiting or diarrhea. - Related Data Home Medications Medication Instructions Recorded Confirmed Atorvastatin [Lipitor] 20 mg PO HS 09/27/16 06/11/18 predniSONE 2.5 mg PO MOWEFR 02/25/17 06/11/18 Meloxicam [Mobic] 7.5 - 15 mg PO DAILY 04/27/18 06/11/18 Potassium Chloride ER [K-Dur 20] 20 meq PO DAILY 04/27/18 06/11/18 metFORMIN HCL 1,000 mg PO HS@1700 04/27/18 06/11/18 sitaGLIPtin [Januvia] 50 mg PO DAILY 04/27/18 06/11/18 Aspirin EC [Ecotrin] 325 mg PO DAILY 06/11/18 06/11/18 Previous Rx's Medication Instructions Recorded Clopidogrel [Plavix] 75 mg PO DAILY #90 tab 08/10/16 Metoprolol Tartrate [Lopressor] 25 mg PO TID #90 tab 08/10/16 Furosemide [Lasix] 40 mg PO DAILY #30 tablet 03/01/17 Lisinopril [Zestril] 10 mg PO DAILY #30 tab 03/01/17 Allergies Allergy/AdvReac Type Severity Reaction Status Date / Time Penicillins Allergy Unknown Verified 06/11/18 12:15 Review of Systems ROS Statement: Those systems with pertinent positive or pertinent negative responses have been documented in the HPI. ROS Other: All systems not noted in ROS Statement are negative. Past Medical History Past Medical History: Chest Pain / Angina, Diabetes Mellitus, Hyperlipidemia, Hypertension Additional Past Medical History / Comment(s): polymyalgia rheumatica, coronary artery bypass 5 vessel 08-05-2016, Aortic Aneurysm repair 12-06-2016 Holly Puga History of Any Multi-Drug Resistant Organisms: None Reported Past Surgical History: Coronary Bypass/CABG, Heart Catheterization With Stent, Orthopedic Surgery Additional Past Surgical History / Comment(s): LEFT EYE SURGERY, LEFT KNEE SURGERY, triple A repair Past Anesthesia/Blood Transfusion Reactions: No Reported Reaction Past Psychological History: No Psychological Hx Reported Smoking Status: Current some day smoker Past Alcohol Use History: Occasional Past Drug Use History: None Reported - Past Family History Father Family Medical History: CVA/TIA Mother Family Medical History: Diabetes Mellitus Brother(s) Family Medical History: Myocardial Infarction ([place]) General Exam - General Exam Comments Initial Comments: GENERAL: Patient is well-developed and well-nourished. Patient is nontoxic and well- hydrated and is in mild distress. ENT: Neck is soft and supple. No significant lymphadenopathy is noted. Oropharynx is clear. Moist mucous membranes. Neck has full range of motion without eliciting any pain. EYES: The sclera were anicteric and conjunctiva were pink and moist. Extraocular movements were intact and pupils were equal round and reactive to light. Eyelids were unremarkable. PULMONARY: Unlabored respirations. Good breath sounds bilaterally. No audible rales rhonchi or wheezing was noted. CARDIOVASCULAR: There is a regular rate and rhythm without any murmurs gallops or rubs. ABDOMEN: Soft and nontender with normal bowel sounds. No palpable organomegaly was noted. There is no palpable pulsatile mass. SKIN: Skin is clear with no lesions or rashes and otherwise unremarkable. NEUROLOGIC: Patient is alert and oriented x3. Cranial nerves II through XII are grossly intact. 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 Normal speech, volume and content. Symmetrical smile. MUSCULOSKELETAL: Normal extremities with adequate strength and full range of motion. No lower extremity swelling or edema. No calf tenderness. LYMPHATICS: No significant lymphadenopathy is noted PSYCHIATRIC: Normal psychiatric evaluation. Limitations: no limitations Course Vital Signs 06/11/18 06/11/18 11:49 13:30 Temperature 97.7 F Pulse Rate 59 L 47 L Respiratory 20 18 Rate Blood Pressure 132/77 121/60 O2 Sat by Pulse 98 100 Oximetry Medical Decision Making - Medical Decision Making EKG shows sinus bradycardia with a PAC at 55 bpm NE interval is on a 72 QRS is 84 Q-T intervals 432 QTC is 413. Patient is a smoker and I discussed with him for about 3-4 minutes the detrimental effects of smoking and way she could potentially quit. CT of the brain shows no acute normalities. Chest x-ray shows no acute abnormality. Patient's symptoms have almost completely resolved at this point. I spoke with Dr. Ponce he agreed to admit the patient admitted the patient I consult and neurology - Lab Data Result diagrams: 06/11/18 12:12 06/11/18 12:12 Lab Results 06/11/18 06/11/18 06/11/18 Range/Units 12:12 12:12 12:12 WBC 5.6 (3.8-10.6) k/uL RBC 4.46 (4.30-5.90) m/uL Hgb 14.1 (13.0-17.5) gm/dL Hct 42.6 (39.0-53.0) % MCV 95.5 (80.0-100.0) fL MCH 31.6 (25.0-35.0) pg MCHC 33.1 (31.0-37.0) g/dL RDW 13.0 (11.5-15.5) % Plt Count 132 L (150-450) k/uL Neutrophils % 61 % Lymphocytes % 25 % Monocytes % 9 % Eosinophils % 3 % Basophils % 1 % Neutrophils # 3.4 (1.3-7.7) k/uL Lymphocytes # 1.4 (1.0-4.8) k/uL Monocytes # 0.5 (0-1.0) k/uL Eosinophils # 0.1 (0-0.7) k/uL Basophils # 0.0 (0-0.2) k/uL PT (9.0-12.0) sec INR (<1.2) APTT (22.0-30.0) sec Sodium 140 (137-145) mmol/L Potassium 4.7 (3.5-5.1) mmol/L Chloride 106 (98-107) mmol/L Carbon Dioxide 27 (22-30) mmol/L Anion Gap 7 mmol/L BUN 21 H (9-20) mg/dL Creatinine 0.67 (0.66-1.25) mg/dL Est GFR (CKD-EPI)AfAm >90 (>60 ml/min/1.73 sqM) Est GFR (CKD-EPI)NonAf >90 (>60 ml/min/1.73 sqM) Glucose 173 H (74-99) mg/dL Calcium 9.6 (8.4-10.2) mg/dL Total Bilirubin 0.7 (0.2-1.3) mg/dL AST 34 (17-59) U/L ALT 29 (21-72) U/L Alkaline Phosphatase 83 (38-126) U/L Total Creatine Kinase 46 L (55-170) U/L CK-MB (CK-2) 1.2 (0.0-2.4) ng/mL CK-MB (CK-2) Rel Index 2.6 Troponin I <0.012 (0.000-0.034) ng/mL Total Protein 7.0 (6.3-8.2) g/dL Albumin 4.0 (3.5-5.0) g/dL 06/11/18 Range/Units 12:12 WBC (3.8-10.6) k/uL RBC (4.30-5.90) m/uL Hgb (13.0-17.5) gm/dL Hct (39.0-53.0) % MCV (80.0-100.0) fL MCH (25.0-35.0) pg MCHC (31.0-37.0) g/dL RDW (11.5-15.5) % Plt Count (150-450) k/uL Neutrophils % % Lymphocytes % % Monocytes % % Eosinophils % % Basophils % % Neutrophils # (1.3-7.7) k/uL Lymphocytes # (1.0-4.8) k/uL Monocytes # (0-1.0) k/uL Eosinophils # (0-0.7) k/uL Basophils # (0-0.2) k/uL PT 9.9 (9.0-12.0) sec INR 1.0 (<1.2) APTT 22.4 (22.0-30.0) sec Sodium (137-145) mmol/L Potassium (3.5-5.1) mmol/L Chloride (98-107) mmol/L Carbon Dioxide (22-30) mmol/L Anion Gap mmol/L BUN (9-20) mg/dL Creatinine (0.66-1.25) mg/dL Est GFR (CKD-EPI)AfAm (>60 ml/min/1.73 sqM) Est GFR (CKD-EPI)NonAf (>60 ml/min/1.73 sqM) Glucose (74-99) mg/dL Calcium (8.4-10.2) mg/dL Total Bilirubin (0.2-1.3) mg/dL AST (17-59) U/L ALT (21-72) U/L Alkaline Phosphatase (38-126) U/L Total Creatine Kinase (55-170) U/L CK-MB (CK-2) (0.0-2.4) ng/mL CK-MB (CK-2) Rel Index Troponin I (0.000-0.034) ng/mL Total Protein (6.3-8.2) g/dL Albumin (3.5-5.0) g/dL Disposition Clinical Impression: TIA (transient ischemic attack) Disposition: ADMITTED IP TO THIS HOSP Referrals: Guanaco Levine DO [Primary Care Provider] - 1-2 days Time of Disposition: 13:47
--- NOTE | 2018-06-11 12:34 | CT ---
EXAMINATION TYPE: CT brain wo con DATE OF EXAM: 06/11/2018 COMPARISON: NONE HISTORY: Right arm weakness CT DLP: 835.8 mGycm Automated exposure control for dose reduction was used. FINDINGS: There are generalized changes of sulcal prominence and ventriculomegaly, compatible with atrophic naeem nge. There is diffuse periventricular white matter lucency, compatible with chronic white matter isch emic change. There is no acute focal lesion, mass effect or midline shift identified. I do not see ev idence of intracranial blood. There is a 5 mm retention cyst or polyp in the right sphenoid sinus. Visualized portions of the paran ifrah sinuses and mastoids are otherwise clear. The bony calvarium is intact. IMPRESSION: 1. NO ACUTE INTRACRANIAL ABNORMALITY. 2. MODERATE DEGENERATIVE CHANGE. 3. RETENTION CYST OR POLYP, RIGHT SPHENOID SINUS.
[2018-06-11 12:41] LABS: Basophils % (A) 1 %; Eosinophils # (A) 0.1 k/uL (0-0.7); Eosinophils % (A) 3 %; HCT 42.6 % (39.0-53.0); HGB 14.1 gm/dL (13.0-17.5); Lymphocytes # (A) 1.4 k/uL (1.0-4.8); Lymphocytes % (A) 25 %; MCH 31.6 pg (25.0-35.0); MCHC 33.1 g/dL (31.0-37.0); MCV 95.5 fL (80.0-100.0); Mean Platelet Volume 8.4; Monocytes # (A) 0.5 k/uL (0-1.0); Monocytes % (A) 9 %; Neutrophils # (A) 3.4 k/uL (1.3-7.7); Neutrophils % (A) 61 %; Platelet Count 132 k/uL (150-450); RBC 4.46 m/uL (4.30-5.90); WBC 5.6 k/uL (3.8-10.6)
--- NOTE | 2018-06-11 12:44 | XR ---
EXAMINATION TYPE: XR chest 2V DATE OF EXAM: 06/11/2018 HISTORY: altered mental status. REFERENCE: Previous study dated 02/28/2017. FINDINGS: There has been a midline sternotomy. Heart size is upper limits of normal. Lungs are clear. Pleural spaces are clear. IMPRESSION: NO ACUTE INTRATHORACIC ABNORMALITY.
[2018-06-11 12:48] LABS: Partial Thromboplastin Time 22.4 sec (22.0-30.0); Prothrombin Time 9.9 sec (9.0-12.0)
[2018-06-11 12:53] LABS: Anion Gap 7 mmol/L; Calcium 9.6 mg/dL (8.4-10.2); Carbon Dioxide 27 mmol/L (22-30); Chloride 106 mmol/L (98-107); Glucose 173 mg/dL (74-99); Sodium 140 mmol/L (137-145); Total Bilirubin 0.7 mg/dL (0.2-1.3)
[2018-06-11 12:57] LABS: ALT 29 U/L (21-72); AST 34 U/L (17-59); Alkaline Phosphatase 83 U/L (38-126); Blood Urea Nitrogen 21 mg/dL (9-20); Potassium 4.7 mmol/L (3.5-5.1)
[2018-06-11 13:02] LABS: Creatine Kinase 46 U/L (55-170)
[2018-06-11 13:15] LABS: Creatine Kinase MB 1.2 ng/mL (0.0-2.4); Troponin I <0.012 ng/mL (0.000-0.034)
[2018-06-11] MEDS ORDERED: ASPIRIN 325 MG TAB PO STA (13:48)
[2018-06-11 15:37] LABS: Glucose,Whole Blood 99 mg/dL (75-99)
[2018-06-11 16:47] LABS: Glucose,Whole Blood 147 mg/dL (75-99)
--- NOTE | 2018-06-11 19:36 | P.CNNES ---
History of Present Illness Consult date: 06/11/18 History of Present Illness: The patient 77-year-old right-handed white male who states he was in his usual health until this morning he woke up with right arm weakness. He states he could barely lift his arm off the bed. His arm was numb as well. This occurred around 7 AM. His arm started to get it stronger but his decided to bring him to the emergency room at 11 AM. He states he continues to have some weakness in the arm but it is much improved compared to this morning. He denies any other neurologic symptoms such as slurred speech headache dizziness and his did not notice any facial droop. He denies any neck pain or trauma. He has been taking his Plavix and aspirin 325 mg daily he had a CAT scan of the brain in the emergency room which did not show any acute findings. She reports she's been in his usual health except for 2 days ago he felt extra tired. Review of Systems Constitutional: Denies chills, Denies fever Eyes: denies blurred vision, denies pain Cardiovascular: Denies chest pain, Denies shortness of breath Respiratory: Denies cough Musculoskeletal: Denies myalgias Neurological: Denies numbness, Denies weakness Psychiatric: Denies anxiety, Denies depression Past Medical History Past Medical History: Chest Pain / Angina, Diabetes Mellitus, Hyperlipidemia, Hypertension, Myocardial Infarction ([place]) Additional Past Medical History / Comment(s): polymyalgia rheumatica, coronary artery bypass 5 vessel 08-05-2016, Aortic Aneurysm repair 12-06-2016 Holly Puga Johns, left eye damaged 1998, cellulites right leg Last Myocardial Infarction Date:: 2015 History of Any Multi-Drug Resistant Organisms: None Reported Past Surgical History: Coronary Bypass/CABG, Orthopedic Surgery Additional Past Surgical History / Comment(s): LEFT EYE SURGERY, LEFT KNEE SURGERY, triple A repair, right eye cataract removed 2014 Past Anesthesia/Blood Transfusion Reactions: No Reported Reaction Smoking Status: Current some day smoker - Past Family History Father Family Medical History: CVA/TIA Mother Family Medical History: Diabetes Mellitus Brother(s) Family Medical History: Myocardial Infarction ([place]) Medications and Allergies Home Medications Medication Instructions Recorded Confirmed Type Clopidogrel [Plavix] 75 mg PO DAILY #90 tab 08/10/16 06/11/18 Rx Metoprolol Tartrate [Lopressor] 25 mg PO TID #90 tab 08/10/16 06/11/18 Rx Atorvastatin [Lipitor] 20 mg PO HS 09/27/16 06/11/18 History predniSONE 2.5 mg PO MOWEFR 02/25/17 06/11/18 History Furosemide [Lasix] 40 mg PO DAILY #30 tablet 03/01/17 06/11/18 Rx Lisinopril [Zestril] 10 mg PO DAILY #30 tab 03/01/17 06/11/18 Rx Meloxicam [Mobic] 7.5 - 15 mg PO DAILY 04/27/18 06/11/18 History Potassium Chloride ER [K-Dur 20] 20 meq PO DAILY 04/27/18 06/11/18 History metFORMIN HCL 1,000 mg PO HS@1700 04/27/18 06/11/18 History sitaGLIPtin [Januvia] 50 mg PO DAILY 04/27/18 06/11/18 History Aspirin EC [Ecotrin] 325 mg PO DAILY 06/11/18 06/11/18 History Allergies Allergy/AdvReac Type Severity Reaction Status Date / Time Penicillins Allergy Unknown Verified 06/11/18 12:15 Physical Examination - Vital Signs Vital Signs: Vital Signs Temp Pulse Pulse Resp BP BP Pulse Ox 06/11/18 18:47 65 20 111/58 06/11/18 16:47 55 L 20 92/50 06/11/18 16:36 96 06/11/18 15:47 57 L 20 100/59 96 06/11/18 14:51 98.8 F 54 L 18 117/58 100 06/11/18 14:47 96.8 F L 59 L 20 123/73 98 06/11/18 13:30 47 L 18 121/60 100 06/11/18 11:49 97.7 F 59 L 20 132/77 98 Intake and Output 06/11/18 06/11/18 06/11/18 06:59 14:59 22:59 Intake Total 236 Output Total 0 Balance 236 Intake: Oral 236 Output: Urine 0 Stool 0 Urine/Stool Mix 0 Other: # Voids 0 # Bowel Movements 0 Weight 63.049 kg - Constitutional General appearance: average body habitus, cooperative - EENT EENT: PERRL, hearing intact, vision intact (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 His speech was fluent there was no a aphasia or dysarthria. Cranial nerve examination: PERRL, VFF, V1/V2/V3 grossly intact, face symmetric, tongue midline Speech examination: intact Sensorimotor examination: intact Detailed motor examination: other (He had mild right upper extremity weakness 4/ 5 was no drift) Reflexes: 2+: bicep, knee - Psychiatric Psychiatric: mood/affect appropriate Results - Laboratory Findings CBC and BMP: 06/11/18 12:12 06/11/18 12:12 Abnormal Lab Findings: Abnormal Labs 06/11/18 06/11/18 06/11/18 12:12 12:12 12:12 Plt Count 132 L BUN 21 H Glucose 173 H POC Glucose (mg/dL) Total Creatine Kinase 46 L 06/11/18 16:44 Plt Count BUN Glucose POC Glucose (mg/dL) 147 H Total Creatine Kinase Assessment and Plan (1) Stroke Current Visit: Yes Status: Acute SNOMED Code(s): 104683536 Plan: The patient is a 77-year-old man admitted to the hospital with right arm weakness. His symptoms are improving. The patient has no other associated symptoms besides right arm weakness. is likely had his isolated left subcortical infarct. Recommendation continue Plavix +325 mg aspirin. Recommend MRI scan of the brain and carotid ultrasound as well as echocardiogram. The patient's risk factors for stroke include heart disease, diabetes hyperlipidemia hypertension, smoking history and family history of stroke
[2018-06-11 21:01] LABS: Glucose,Whole Blood 141 mg/dL (75-99)
[2018-06-11] MEDS ORDERED: ATORVASTATIN 20 MG TAB PO SCH (22:15)
[2018-06-11] MEDS: INSULIN ASPART 100 UNIT/ML 1 ML 10 ML VIAL SQ SCH (22:28)
[2018-06-12 05:48] LABS: Glucose,Whole Blood 126 mg/dL (75-99)
[2018-06-12] MEDS: INSULIN ASPART 100 UNIT/ML 1 ML 10 ML VIAL SQ SCH ×4 (05:50→21:59)
[2018-06-12 07:11] LABS: Cholesterol 128 mg/dL (<200); HDL Cholesterol 34 mg/dL (40-60); LDL Cholesterol,Calculated 68 mg/dL (0-99); Triglycerides 131 mg/dL (<150)
[2018-06-12] MEDS: LINAGLIPTIN 5 MG TABLET PO SCH (10:00)
[2018-06-12] MEDS: ASPIRIN 325 MG TAB PO SCH (10:00)
[2018-06-12] MEDS: LISINOPRIL 10 MG TAB PO SCH (10:00)
[2018-06-12] MEDS: FUROSEMIDE 40 MG TAB PO SCH (10:00)
[2018-06-12] MEDS: CLOPIDOGREL 75 MG TAB PO SCH (10:00)
[2018-06-12] MEDS: MELOXICAM 7.5 MG TAB PO SCH (10:01)
[2018-06-12] MEDS: METOPROLOL TARTRATE 25 MG TAB PO SCH ×3 (10:01→21:59)
[2018-06-12] MEDS: POTASSIUM CHLORIDE ER 20 MEQ TAB.ER PO SCH (10:02)
--- NOTE | 2018-06-12 10:21 | US ---
EXAMINATION TYPE: US carotid duplex BILAT DATE OF EXAM: 06/12/2018 COMPARISON: Prior carotid Doppler 08/03/2016 CLINICAL HISTORY: Stroke. unable to use right arm 2 days ago, slowly improving, no h/o stroke EXAM MEASUREMENTS: RIGHT: Peak Systolic Velocity (PSV) cm/sec ----- Right CCA: 66.6 ----- Right ICA: 88.7 ----- Right ECA: 86.6 ICA/CCA ratio: 1.3 RIGHT: End Diastole cm/sec ----- Right CCA: 17.4 ----- Right ICA: 25.7 ----- Right ECA: 8.7 LEFT: Peak Systolic Velocity (PSV) cm/sec ----- Left CCA: 51.7 ----- Left ICA: 79.7 ----- Left ECA: 66.5 ICA/CCA ratio: 1.5 LEFT: End Diastole cm/sec ----- Left CCA: 15.3 ----- Left ICA: 25.7 ----- Left ECA: 10.7 VERTEBRALS (direction of flow): Right Vertebral: Antegrade Left Vertebral: Antegrade Rhythm: Normal Heterogeneous plaque at bilateral bulbs with no significant stenosis seen. Grayscale, color Doppler, spectral Doppler imaging performed of the carotid arteries. Waveform analys is does not show significant stenosis of the proximal internal carotid arteries. IMPRESSION: No hemodynamic significant stenosis of the proximal internal carotid arteries bilaterall y by Doppler criteria, an indirect measurement of carotid stenosis
--- NOTE | 2018-06-12 11:23 | MR ---
MR brain without contrast HISTORY: Stroke Multiplanar multisequence imaging through the brain Some small scattered foci and restricted diffusion are present in the left parietal lobe towards the convexity. There is ventriculomegaly likely in accordance with the degree of cortical atrophy. Conflu ent and scattered hyperintensities are present on inversion recovery and T2-weighted sequences within the periventricular, subcortical, pericallosal and deep white matter. No evident hemorrhage or hydro cephalus. There are normal vascular flow voids. The orbits show a somewhat hourglass configuration of the globe on the left as compared to the right, correlate for postsurgical change. The corpus callos um is somewhat thinned. Cervical medullary junction, cerebellopontine angles, pituitary are unremarka ble. Paranasal sinuses are well aerated. IMPRESSION: Findings compatible with small foci of subacute infarction in the left parietal lobe, con jewel setter embolic disease. Age-related atrophy and probable chronic small vessel ischemia.
[2018-06-12 11:55] LABS: Glucose,Whole Blood 157 mg/dL (75-99)
--- NOTE | 2018-06-12 11:56 | ECHOF ---
Referral Reason:Stroke MEASUREMENTS -------- HEIGHT: 160.0 cm WEIGHT: 54.0 kg BP: 123/69 RVIDd: 3.2 cm (< 3.3) IVSd: 1.4 cm (0.6 - 1.1) LVIDd: 2.9 cm (3.9 - 5.3) LVPWd: 1.5 cm (0.6 - 1.1) IVSs: 1.6 cm LVIDs: 2.2 cm LVPWs: 1.3 cm LA Diam: 3.5 cm (2.7 - 3.8) LAESV Index (A-L): 27.89 ml/m Ao Diam: 3.5 cm (2.0 - 3.7) AV Cusp: 1.5 cm (1.5 - 2.6) LA Diam: 4.5 cm (2.7 - 3.8) MV EXCURSION: 14.924 mm (> 18.000) MV EF SLOPE: 33 mm/s (70 - 150) EPSS: 0.2 cm MV E Saul: 0.64 m/s MV DecT: 291 ms MV A Saul: 1.00 m/s MV E/A Ratio: 0.63 AV maxP.04 mmHg AV meanP.64 mmHg RAP: 5.00 mmHg RVSP: 27.49 mmHg FINDINGS -------- Sinus rhythm. This was a technically adequate study. The left ventricular size is normal. There is mild concentric left ventricular hypertrophy. Overa ll left ventricular systolic function is normal with, an EF between 55 - 60 %. The right ventricle is normal in size. The left atrial size is normal. Normal LA size by volume 22+/-6 ml/m2. The right atrial size is normal. There is mild aortic regurgitation. There is mild aortic stenosis present. Peak/mean gradient acr oss the Aortic Valve is 11.04mmHg / 5.64mmHg. Mild mitral annular calcification present. Mild mitral regurgitation is present. Mild tricuspid regurgitation present. There is no evidence of pulmonary hypertension. The right v entricular systolic pressure, as measured by Doppler, is 27.49mmHg. There is no pulmonic regurgitation present. The aortic root size is normal. There is no pericardial effusion. CONCLUSIONS -------- 1. The left ventricular size is normal. 2. There is mild concentric left ventricular hypertrophy. 3. Overall left ventricular systolic function is normal with, an EF between 55 - 60 %. 4. The right ventricle is normal in size. 5. The left atrial size is normal. 6. The right atrial size is normal. 7. There is mild aortic regurgitation. 8. There is mild aortic stenosis present. 9. Peak/mean gradient across the Aortic Valve is 11.04mmHg / 5.64mmHg. 10. Mild mitral annular calcification present. 11. Mild mitral regurgitation is present. 12. Mild tricuspid regurgitation present. 13. There is no evidence of pulmonary hypertension. 14. The right ventricular systolic pressure, as measured by Doppler, is 27.49mmHg. 15. There is no pulmonic regurgitation present. 16. The aortic root size is normal. 17. There is no pericardial effusion. MILK TESTER: Sara Villalobos RDCS
--- NOTE | 2018-06-12 14:09 | P.HPIM ---
History of Present Illness H&P Date: 06/12/18 Chief Complaint: Right hand weakness This is a 77-year-old male patient of Dr. Levine with past medical history of myocardial infarction coronary artery disease status post 5 vessel bypass in August 2016, abdominal aortic aneurysm repair in December 2016, diabetes mellitus type 2, hyperlipidemia, hypertensionl and polymyalgia rheumatica on low dose prednisone. Patient states that he woke up on Tuesday at 7 AM he couldn't use his right hand. He does have normal touch sensation. He denies any numbness. He denies any chest pain or shortness of breath no difficulty walking. He states his right leg may be a little bit weaker than the left but he also has osteoarthritis in the right knee. He is currently undergoing physical therapy for torn rotator cuff. He is scheduled for a stress test on June [address] Ruiz. Patient has been on aspirin 325 mg daily and Plavix and had milligrams daily at home. Patient came into [facility] emergency center for evaluation. Platelet count was 132, blood sugar running between 173 and 157, lites within normal limits. Liver function tests within normal limits. Triglyceride is 131 , cholesterol 128, LDL 68, HDL 34. Carotid ultrasound showed no hemodynamically significant stenosis. Echocardiogram reveals EF of 55-60% with mild concentric left hypertrophy, mild aortic regurgitation, mild aortic stenosis and mild mitral regurgitation, mild tricuspid regurgitation, no pulmonary hypertension. MRI of the brain revealed small foci of subacute infarct in the left parietal lobe, consider embolic disease. Age-related atrophy and probable small vessel ischemia. Consult with cardiology regarding the embolic disease and possible VAUGHN. Review of Systems All systems: negative Constitutional: Denies chills, Denies fever Eyes: denies blurred vision, denies pain Ears, nose, mouth and throat: Denies headache, Denies sore throat, Denies vertigo Cardiovascular: Denies chest pain, Denies decreased exercise tolerance, Denies dyspnea on exertion, Denies edema, Denies lightheadedness, Denies orthopnea, Denies shortness of breath, Denies syncope Respiratory: Denies cough, Denies cough with sputum, Denies dyspnea, Denies excessive sputum, Denies hemoptysis, Denies wheezing Gastrointestinal: Denies abdominal pain, Denies diarrhea, Denies nausea, Denies vomiting Genitourinary: Denies dysuria, Denies urinary retention Musculoskeletal: Denies arm numbness/tingling, Denies frequent falls, Denies gait dysfunction, Denies leg numbness/tingling, Denies myalgias Integumentary: Denies pruritus, Denies rash, Denies wounds Neurological: Reports motor disturbance, Reports paralysis, Denies aphasia, Denies ataxia, Denies balance difficulties, Denies change in mentation, Denies change in speech, Denies confusion, Denies convulsions, Denies gait dysfunction , Denies head injury, Denies headaches, Denies loss of vision, Denies memory loss, Denies migraines, Denies numbness, Denies tremors, Denies vertigo, Denies weakness, Denies visual changes Psychiatric: Denies anxiety, Denies depression Endocrine: Denies fatigue, Denies weight change Past Medical History Past Medical History: Chest Pain / Angina, Diabetes Mellitus, Hyperlipidemia, Hypertension, Myocardial Infarction ([place]) Additional Past Medical History / Comment(s): polymyalgia rheumatica, coronary artery bypass 5 vessel 08-05-2016, Aortic Aneurysm repair 12-06-2016 Holly Puga Johns, left eye damaged 1998, cellulites right leg Last Myocardial Infarction Date:: 2015 History of Any Multi-Drug Resistant Organisms: None Reported Past Surgical History: Coronary Bypass/CABG, Orthopedic Surgery Additional Past Surgical History / Comment(s): LEFT EYE SURGERY, LEFT KNEE SURGERY, triple A repair, right eye cataract removed 2014 Past Anesthesia/Blood Transfusion Reactions: No Reported Reaction Smoking Status: Current some day smoker Additional Past Alcohol Use History / Comment(s): She was a smoker of one pack per day of cigarettes for 32 years and then switched at age 46 to cigars and smokes 2-5 cigars on and off every day. He drinks whiskey occasionally. He lives at home with his . - Past Family History Father Family Medical History: CVA/TIA Additional Family Medical History / Comment(s): Father has history of several CVAs. No [place] in the past. Mother Family Medical History: Diabetes Mellitus Additional Family Medical History / Comment(s): Mother has history of diabetes. Family denies stroke, [place], cancer. Brother(s) Family Medical History: Myocardial Infarction ([place]) Additional Family Medical History / Comment(s): Patient has a brother that had a myocardial infarction at age 32 and still alive at age 81 also with straight of diabetes. Patient has one sister that has of unclear etiology. Adult children with no major medical problems. Medications and Allergies Home Medications Medication Instructions Recorded Confirmed Type Clopidogrel [Plavix] 75 mg PO DAILY #90 tab 08/10/16 06/11/18 Rx Metoprolol Tartrate [Lopressor] 25 mg PO TID #90 tab 08/10/16 06/11/18 Rx Atorvastatin [Lipitor] 20 mg PO HS 09/27/16 06/11/18 History predniSONE 2.5 mg PO MOWEFR 02/25/17 06/11/18 History Furosemide [Lasix] 40 mg PO DAILY #30 tablet 03/01/17 06/11/18 Rx Lisinopril [Zestril] 10 mg PO DAILY #30 tab 03/01/17 06/11/18 Rx Meloxicam [Mobic] 7.5 - 15 mg PO DAILY 04/27/18 06/11/18 History Potassium Chloride ER [K-Dur 20] 20 meq PO DAILY 04/27/18 06/11/18 History metFORMIN HCL 1,000 mg PO HS@1700 04/27/18 06/11/18 History sitaGLIPtin [Januvia] 50 mg PO DAILY 04/27/18 06/11/18 History Aspirin EC [Ecotrin] 325 mg PO DAILY 06/11/18 06/11/18 History Allergies Allergy/AdvReac Type Severity Reaction Status Date / Time Penicillins Allergy Unknown Verified 06/11/18 12:15 Physical Exam Vitals: Vital Signs Temp Pulse Pulse Resp BP BP Pulse Ox 06/12/18 08:00 97.1 F L 63 18 120/71 97 06/12/18 06:47 71 16 123/69 97 06/12/18 04:47 62 18 125/68 98 06/12/18 03:47 65 06/12/18 02:47 65 18 119/67 97 06/12/18 00:47 56 L 18 110/62 06/12/18 00:00 67 06/11/18 22:47 67 18 120/70 95 06/11/18 20:00 97 F L 66 18 106/65 94 L 06/11/18 18:47 65 20 111/58 06/11/18 16:47 55 L 20 92/50 06/11/18 16:36 96 06/11/18 15:47 57 L 20 100/59 96 06/11/18 14:51 98.8 F 54 L 18 117/58 100 06/11/18 14:47 96.8 F L 59 L 20 123/73 98 06/11/18 13:30 47 L 18 121/60 100 06/11/18 11:49 97.7 F 59 L 20 132/77 98 Intake and Output 06/11/18 06/12/18 06/12/18 22:59 06:59 14:59 Intake Total 236 300 240 Output Total 0 0 Balance 236 300 240 Intake: Oral 236 300 240 Output: Urine 0 Stool 0 0 Urine/Stool Mix 0 Other: Voiding Method Toilet Toilet Urinal Urinal # Voids 0 1 # Bowel Movements 0 - Constitutional General appearance: average body habitus, cooperative, no mild distress, no acute distress, no severe distress - EENT Eyes: EOMI, PERRLA ENT: hearing grossly normal - Neck Neck: no lymphadenopathy, normal ROM, no rigidity, no thyromegaly - Respiratory Respiratory: bilateral: CTA, diminished, negative: rales, rhonchi, wheezing - Cardiovascular Heart sounds: normal: S1, S2 - Gastrointestinal General gastrointestinal: normal bowel sounds, no organomegaly, no rigid, soft, no tenderness - Integumentary Integumentary: no cellulitis, normal - Neurologic Neurologic: CNII-XII intact - Musculoskeletal Musculoskeletal: gait normal, no generalized weakness, no strength equal bilaterally, right sided weakness - Psychiatric Psychiatric: A&O x's 3, appropriate affect, intact judgment & insight Results CBC & Chem 7: 06/11/18 12:12 06/11/18 12:12 Labs: Abnormal Lab Results - Last 24 Hours (Table) 06/11/18 06/11/18 06/11/18 Range/Units 12:12 12:12 12:12 Plt Count 132 L (150-450) k/uL BUN 21 H (9-20) mg/dL Glucose 173 H (74-99) mg/dL POC Glucose (mg/dL) (75-99) mg/dL Total Creatine Kinase 46 L (55-170) U/L HDL Cholesterol (40-60) mg/dL 06/11/18 06/11/18 06/12/18 Range/Units 16:44 20:59 05:47 Plt Count (150-450) k/uL BUN (9-20) mg/dL Glucose (74-99) mg/dL POC Glucose (mg/dL) 147 H 141 H 126 H (75-99) mg/dL Total Creatine Kinase (55-170) U/L HDL Cholesterol (40-60) mg/dL 06/12/18 Range/Units 06:41 Plt Count (150-450) k/uL BUN (9-20) mg/dL Glucose (74-99) mg/dL POC Glucose (mg/dL) (75-99) mg/dL Total Creatine Kinase (55-170) U/L HDL Cholesterol 34 L (40-60) mg/dL Thrombosis Risk Factor Assmnt - DVT/VTE Prophylaxis DVT/VTE Prophylaxis: Pharmacologic Prophylaxis ordered - Choose All That Apply Each Risk Factor Represents 3 Points: Age 75 years or older Thrombosis Risk Factor Assessment Total Risk Factor Score: 3 Thrombosis Risk Factor Assessment Level: Moderate Risk Assessment and Plan Plan: 1. 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 Cardiology consult requested. Neurology consult appreciated with recommendations to continue full strength aspirin and Plavix. He is currently on atorvastatin 20 mg which will be increased 80 mg daily. PT, OT, speech therapy. 2. Hypertension. Continue lisinopril 10 mg daily, Lopressor 25 mg 3 times daily, Lasix 40 mg daily and potassium supplementation. 3. History of coronary artery disease. Continue aspirin, atorvastatin, Plavix. 4. History of aortic aneurysm repair done in 2017, stable. 5. Polymyalgia rheumatica. Continue prednisone 2.5 mg on Tuesday. 6. Diabetes mellitus type 2. Continue Tradjentaand NovoLog scale before meals and at bedtime. 7. GI prophylaxis. Pepcid. 8. DVT prophylaxis. Heparin subcu. Patient will be admitted to the hospital for a minimum of 2 night stay. Discharge plan: Return home with outpatient physical therapy Impression and plan of care have been directed as dictated by the signing physician. Jennifer Owusu nurse practitioner acting as scribe for signing physician.
[2018-06-12 16:38] LABS: Glucose,Whole Blood 159 mg/dL (75-99)
[2018-06-12 21:09] LABS: Glucose,Whole Blood 148 mg/dL (75-99)
[2018-06-12] MEDS: ATORVASTATIN 80 MG TAB PO SCH (21:58)
[2018-06-12] MEDS: HEPARIN SODIUM,PORCINE 5,000 UNIT/ML 1 ML VIAL SQ SCH (21:58)
[2018-06-12] MEDS ORDERED: predniSONE 5 MG TAB PO SCH (22:10)
--- NOTE | 2018-06-13 00:14 | P.PN ---
Subjective Progress Note Date: 06/12/18 The patient is a 77-year-old man who presented to the hospital with right arm weakness. The patient reports improvement in his symptoms. He has only occasional tingling in the right arm. He denied any new symptoms. He denied any speech disturbance headache dizziness visual complaint or increasing weakness. The patient had an MRI scan of the brain today which confirmed a subacute infarct in the left parietal lobe. This was felt to be possible embolic in origin. The patient had a carotid ultrasound which did not show any significant stenosis. He has also had an echocardiogram which is unremarkable. Objective - Vital Signs Vital signs: Vital Signs Temp 98.1 F 06/12/18 16:00 Pulse 58 L 06/12/18 16:00 Resp 18 06/12/18 16:00 BP 113/65 06/12/18 16:00 Pulse Ox 94 L 06/12/18 16:00 Intake & Output 06/12/18 06/12/18 06/13/18 06:59 18:59 06:59 Intake Total 536 480 Output Total 0 Balance 536 480 Intake: Oral 536 480 Output: Stool 0 Other: Voiding Method Toilet Toilet Urinal Urinal # Voids 1 1 - Constitutional General appearance: Present: cooperative - EENT Eyes: Present: EOMI, PERRLA - Cardiovascular Rhythm: regular - Neurologic Neurologic: Present: CNII-XII intact - Musculoskeletal Musculoskeletal: Present: strength equal bilaterally (The patient had minimal right hand weakness without a drift) - Psychiatric Psychiatric: Present: A&O x's 3, appropriate affect - Labs CBC & Chem 7: 06/11/18 12:12 06/11/18 12:12 Labs: Abnormal Lab Results - Last 24 Hours (Table) 06/12/18 06/12/18 06/12/18 Range/Units 05:47 06:41 11:33 POC Glucose (mg/dL) 126 H 157 H (75-99) mg/dL HDL Cholesterol 34 L (40-60) mg/dL 06/12/18 06/12/18 Range/Units 16:32 21:08 POC Glucose (mg/dL) 159 H 148 H (75-99) mg/dL HDL Cholesterol (40-60) mg/dL Assessment and Plan (1) Stroke Current Visit: Yes Status: Acute SNOMED Code(s): 259515352 Plan: The patient is a 77-year-old man admitted to the hospital with right arm weakness. His weakness is improved and the tingling in the left arm has reduced. He has infarct as seen on MRI scan in the left parietal lobe. Recommendation continue Plavix +325 mg aspirin. The patient's risk factors for stroke include heart disease, diabetes hyperlipidemia hypertension, smoking history and family history of stroke. Recommend further evaluation for embolic source with VAUGHN. We'll consult cardiology.
[2018-06-13 05:51] LABS: Glucose,Whole Blood 135 mg/dL (75-99)
[2018-06-13] MEDS: INSULIN ASPART 100 UNIT/ML 1 ML 10 ML VIAL SQ SCH ×4 (06:27→21:03)
[2018-06-13] MEDS: HEPARIN SODIUM,PORCINE 5,000 UNIT/ML 1 ML VIAL SQ SCH ×2 (08:07→21:02)
[2018-06-13] MEDS: CLOPIDOGREL 75 MG TAB PO SCH (08:07)
[2018-06-13] MEDS: ASPIRIN 325 MG TAB PO SCH (08:07)
[2018-06-13] MEDS: FAMOTIDINE 20 MG TAB PO SCH (08:07)
[2018-06-13] MEDS: MELOXICAM 7.5 MG TAB PO SCH (08:08)
[2018-06-13] MEDS: LISINOPRIL 10 MG TAB PO SCH (08:08)
[2018-06-13] MEDS: POTASSIUM CHLORIDE ER 20 MEQ TAB.ER PO SCH (08:08)
[2018-06-13] MEDS: FUROSEMIDE 40 MG TAB PO SCH (08:09)
[2018-06-13] MEDS: METOPROLOL TARTRATE 25 MG TAB PO SCH ×2 (08:09→20:58)
[2018-06-13 11:41] LABS: Glucose,Whole Blood 124 mg/dL (75-99)
[2018-06-13] MEDS ORDERED: IV FLUID CONTINUATION 1,000 ML IV ONE (12:10)
[2018-06-13] MEDS ORDERED: fentaNYL (PF) 50 MCG/ML 2 ML AMP ONE (12:11)
[2018-06-13] MEDS ORDERED: MIDAZOLAM 2 MG/2 ML VIAL ONE (12:12)
[2018-06-13] MEDS: BENZOCAINE SPRAY 1 CAN MUCOUS MEM ONE ×2 (12:15→12:26)
[2018-06-13] MEDS ORDERED: MIDAZOLAM 2 MG/2 ML VIAL IVP ONE (12:26)
[2018-06-13] MEDS ORDERED: fentaNYL (PF) 50 MCG/ML 2 ML AMP IVP ONE (12:26)
[2018-06-13] MEDS ORDERED: SODIUM CHLORIDE 0.9% 1,000 ML IV SCH (12:45)
--- NOTE | 2018-06-13 13:21 | ECHOT ---
TRANSESOPHAGEAL ECHOCARDIOGRAM INDICATION: Evaluation for intracardiac thrombus. PROCEDURE: After explaining the procedure to the patient, its risks and complications, blood pressure, heart rate, O2 saturation was monitored. He received 1 mg intravenous Versed, 50 mcg intravenous fentanyl. The probe was introduced in the esophagus without difficulty. Images were obtained. Following that, the probe was removed. There was no immediate complication. FINDINGS: Left atrial size is upper size of normal. Left atrial appendage is normal. The interatrial septum is highly mobile. The left ventricular size and systolic function are normal. The mitral valve revealed mild annulus calcification. The aortic valve is a tricuspid valve with atherosclerotic changes and preserved opening. Descending thoracic aorta revealed mild atherosclerotic changes. No pericardial effusion was noted. Contrast bubble study revealed a sopfa-li-zcjd shunting with Valsalva maneuver through a patent foramen ovale. Doppler pulse wave and color Doppler obtained and revealed mild mitral and tricuspid regurgitation and aortic regurgitation. There was no documentation of the PFO by color Doppler study. CONCLUSION: 1. Normal left ventricular size and systolic function. 2. Normal appearance left atrial appendage. 3. Mild mitral, tricuspid and aortic regurgitation. 4. Evidence of shunting across the patent foramen ovale with ljlrm-kq-brno shunting with Valsalva maneuver and highly mobile interatrial septum. 5. Mild atherosclerotic changes of the descending thoracic aorta. 6. No evidence of pericardial effusion. MMODL / IJN: [id number] /
[2018-06-13] MEDS: LINAGLIPTIN 5 MG TABLET PO SCH (15:29)
--- NOTE | 2018-06-13 16:18 | CONS ---
CONSULTATION Mr. Lyon is a 77-year-old gentleman with a history of CAD, type 2 diabetes, hypertension, hyperlipidemia, and known history of prior abdominal aortic aneurysm for which he had a stent grafting performed. In 2016 apparently this gentleman underwent aortocoronary bypass surgery that was performed on 08/05/[address] Cooper. He had a left internal mammary graft to LAD, vein graft to the diagonal and obtuse marginal branch of circumflex and distal RCA. This gentleman was doing well until yesterday morning when he woke up and tried to shut the alarm off and suddenly felt that he had no control in his right hand. He felt there was a complete lack of strength and coordination. It lasted for nearly 30 minutes and then he felt better and he came into the hospital. I was asked to see him because of TIA with underlying history of CAD and multiple comorbid conditions. At the time of my evaluation, his neurological recovery is almost complete. He still has weakness, but overall it is quite functional. He has got his coordination back. He is able to do his usual activities. His troponin level is normal. He is resting comfortably without symptoms. PAST MEDICAL HISTORY: 1. CAD with aortocoronary bypass surgery in 2016. 2. Abdominal aortic aneurysm, status post stent grafting that was performed in [address] Barrera at [facility]. 3. Type 2 diabetes. 4. Hypertension. 5. Hyperlipidemia. 6. History of smoking and some COPD. MEDICATIONS: At home include Januvia, metformin, metoprolol tartrate 25 mg t.i.d., Zestril 10 mg daily, Lasix 40 mg daily, Plavix 75 mg daily, Lipitor 20 mg daily, aspirin 81 mg daily. ALLERGIES: PENICILLIN. REVIEW OF SYSTEMS: Unremarkable other than above-mentioned facts. EXAMINATION: Blood pressure is 128/70, pulse rate is 62 per minute and regular. HEENT: Unremarkable. Fundus was not examined by me. Neck is supple. There is no JVD. I do not hear a carotid bruit. There is no thyromegaly. Heart exam reveals S1, S2 heard normally with a short systolic murmur at the base, preserved second heart sound. Lungs reveal decent air entry. Abdomen is soft, nontender. Lower extremities reveal diminished pulses. Central nervous system grossly no focal deficits other than mild weakness of the right upper extremity. While I was examining the patient when I listened to his carotid heard artery, he developed a transient bradycardia and seems to have some hypersensitive carotids. EKG revealed sinus bradycardia with some PACs. No acute changes. IMPRESSION: 1. Transient ischemic attack with right upper extremity weakness, which has almost completely resolved. 2. Coronary artery disease with prior bypass surgery. 3. Type 2 diabetes. 4. Hypertension. 5. History of abdominal aortic aneurysm, status post stent grafting. RECOMMENDATIONS: I am recommending that we will decrease the Lopressor to 25 mg b.i.d. On reviewing the rhythm strips he seems to have some bradycardia as well. Additionally, given his presentation and the CT scan findings, I am recommending a transesophageal echo which will be performed today along with a event monitor prior to discharge. Based on these findings, we will make further recommendations. Thank you very much for the consult. CHIVO / SCOTT: [id number] /
--- NOTE | 2018-06-13 16:21 | US ---
EXAMINATION TYPE: US venous doppler duplex LE BI DATE OF EXAM: 06/13/2018 4:12 PM COMPARISON: NONE CLINICAL HISTORY: PFO. Right knee pain, patient on blood thinners SIDE PERFORMED: Bilateral TECHNIQUE: The lower extremity deep venous system is examined utilizing real time linear array sonog janet with graded compression, doppler sonography and color-flow sonography. VESSELS IMAGED: External Iliac Vein (EIV) Common Femoral Vein Deep Femoral Vein Greater Saphenous Vein * Femoral Vein Popliteal Vein Small Saphenous Vein * Proximal Calf Veins (* superficial vessels) Right Leg: Appears negative for DVT, popliteal fossa: 4.7 x 1.7 x 3.0cm complex cystic area medial t o vessels, probable prather's cyst Left Leg: Appears negative for DVT Grayscale, color doppler, spectral doppler imaging performed of the deep veins of the bilateral lower extremities. There is normal flow, compressibility, vascular waveforms. IMPRESSION: No ultrasound evidence for acute DVT in either lower extremity. Incidental small to mode rate-sized right-sided popliteal/prather cyst.
[2018-06-13 16:29] VITALS: RESP 18
[2018-06-13 16:50] LABS: Glucose,Whole Blood 170 mg/dL (75-99)
[2018-06-13] MEDS: ATORVASTATIN 80 MG TAB PO SCH (21:02)
[2018-06-13 21:11] LABS: Glucose,Whole Blood 229 mg/dL (75-99)
[2018-06-14 06:20] LABS: Glucose,Whole Blood 143 mg/dL (75-99)
[2018-06-14] MEDS: INSULIN ASPART 100 UNIT/ML 1 ML 10 ML VIAL SQ SCH (06:40)
[2018-06-14] MEDS: MELOXICAM 7.5 MG TAB PO SCH (08:02)
[2018-06-14] MEDS: FAMOTIDINE 20 MG TAB PO SCH (08:02)
[2018-06-14] MEDS: ASPIRIN 325 MG TAB PO SCH (08:02)
[2018-06-14] MEDS: CLOPIDOGREL 75 MG TAB PO SCH (08:02)
[2018-06-14] MEDS: FUROSEMIDE 40 MG TAB PO SCH (08:02)
[2018-06-14] MEDS: LISINOPRIL 10 MG TAB PO SCH (08:03)
[2018-06-14] MEDS: POTASSIUM CHLORIDE ER 20 MEQ TAB.ER PO SCH (08:03)
[2018-06-14] MEDS: HEPARIN SODIUM,PORCINE 5,000 UNIT/ML 1 ML VIAL SQ SCH (08:03)
[2018-06-14] MEDS: LINAGLIPTIN 5 MG TABLET PO SCH (08:03)
[2018-06-14] MEDS: METOPROLOL TARTRATE 25 MG TAB PO SCH (08:06)
[2018-06-14 09:31] VITALS: BP 123/73; PULSE 108; TEMP 97.8
--- NOTE | 2018-06-14 10:28 | P.DS ---
Providers Date of admission: 06/11/18 14:35 Expected date of discharge: 06/14/18 Attending physician: Shireen Ponce Consults: 06/11/18 13:48 Consult Physician Routine Consulting Provider: Jacek Duke Consult Reason/Comments: TIA Do you want consulting provider notified?: Yes 06/12/18 12:49 Consult Physician Routine Consulting Provider: Eloina Spencer Consult Reason/Comments: CVA, possible embolic disease on MRI Do you want consulting provider notified?: Yes Primary care physician: Guanaco Levine [facility] Course: This is a 77-year-old male patient of Dr. Levine with past medical history of myocardial infarction coronary artery disease status post 5 vessel bypass in August 2016, abdominal aortic aneurysm repair in December 2016, diabetes mellitus type 2, hyperlipidemia, hypertensionl and polymyalgia rheumatica on low dose prednisone. Patient states that he woke up on Tuesday at 7 AM he couldn't use his right hand. He does have normal touch sensation. He denies any numbness. He denies any chest pain or shortness of breath no difficulty walking. He states his right leg may be a little bit weaker than the left but he also has osteoarthritis in the right knee. He is currently undergoing physical therapy for torn rotator cuff. He is scheduled for a stress test on June [address] Ruiz. Patient has been on aspirin 325 mg daily and Plavix and had milligrams daily at home. Patient came into [facility] emergency [facility] for evaluation. Platelet count was 132, blood sugar running between 173 and 157, lites within normal limits. Liver function tests within normal limits. Triglyceride is 131 , cholesterol 128, LDL 68, HDL 34. Carotid ultrasound showed no hemodynamically significant stenosis. Echocardiogram reveals EF of 55-60% with mild concentric left hypertrophy, mild aortic regurgitation, mild aortic stenosis and mild mitral regurgitation, mild tricuspid regurgitation, no pulmonary hypertension. MRI of the brain revealed small foci of subacute infarct in the left parietal lobe, consider embolic disease. Age-related atrophy and probable small vessel ischemia. Consult with cardiology regarding the embolic disease and possible VAUGHN. 06/13: Patient has been seen by cardiology and underwent VAUGHN which found a small PFO. He underwent bilateral venous duplex studies which are negative for DVT. Patient is to have event monitor placed in discharge home however cardiology offices close and discharge will be delayed until tomorrow morning when the office opens. Patient is being discharged home in stable condition. Discharge diagnoses: 1. 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 2. Hypertension. 3. History of coronary artery disease. 4. History of aortic aneurysm repair done in 2017, stable. 5. Polymyalgia rheumatica. 6. Diabetes mellitus type 2. Discharge plan: Return home with outpatient physical therapy Impression and plan of care have been directed as dictated by the signing physician. Jennifer Owusu nurse practitioner acting as scribe for signing physician. Patient Condition at Discharge: Good Plan - Discharge Summary New Discharge Prescriptions: New Atorvastatin [Lipitor] 80 mg PO HS #30 tab Continue Clopidogrel [Plavix] 75 mg PO DAILY #90 tab predniSONE 2.5 mg PO MOWEFR Furosemide [Lasix] 40 mg PO DAILY #30 tablet Lisinopril [Zestril] 10 mg PO DAILY #30 tab sitaGLIPtin [Januvia] 50 mg PO DAILY metFORMIN HCL 1,000 mg PO HS@1700 Meloxicam [Mobic] 7.5 - 15 mg PO DAILY Potassium Chloride ER [K-Dur 20] 20 meq PO DAILY Aspirin EC [Ecotrin] 325 mg PO DAILY Changed Metoprolol Tartrate [Lopressor] 25 mg PO BID #90 tab Discontinued Atorvastatin [Lipitor] 20 mg PO HS Discharge Medication List Clopidogrel [Plavix] 75 mg PO DAILY #90 tab 08/10/16 [Rx] predniSONE 2.5 mg PO MOWEFR 02/25/17 [History] Furosemide [Lasix] 40 mg PO DAILY #30 tablet 03/01/17 [Rx] Lisinopril [Zestril] 10 mg PO DAILY #30 tab 03/01/17 [Rx] Meloxicam [Mobic] 7.5 - 15 mg PO DAILY 04/27/18 [History] Potassium Chloride ER [K-Dur 20] 20 meq PO DAILY 04/27/18 [History] metFORMIN HCL 1,000 mg PO HS@1700 04/27/18 [History] sitaGLIPtin [Januvia] 50 mg PO DAILY 04/27/18 [History] Aspirin EC [Ecotrin] 325 mg PO DAILY 06/11/18 [History] Atorvastatin [Lipitor] 80 mg PO HS #30 tab 06/13/18 [Rx] Metoprolol Tartrate [Lopressor] 25 mg PO BID #90 tab 06/13/18 [Rx] Follow up Appointment(s)/Referral(s): Syed Ruiz MD [STAFF PHYSICIAN] - 06/23/18 4:15 pm (Tuesday at [facility] location) Guanaco Levine DO [Primary Care Provider] - 1 Week (Office is closed. Please call to make appointment) Jeremy Mccarty DO [STAFF PHYSICIAN] - 1 Week (Office is closed. Please call to schedule appointment) Patient Instructions/Handouts: Transesophageal Echocardiogram (DC), Ischemic Stroke (DC) Activity/Diet/Wound Care/Special Instructions: Please stop by the cardiology office to spanish moss picker your 30 day event monitor at discharge (already arranged) Discharge Disposition: HOME SELF-CARE
[2018-06-14 12:16] LABS: Hemoglobin A1C 6.3 % (4.0-6.0)
== END 2018-06-14 09:15 | disposition home or self-care (01) | DRG 65 ==
LOC: EC 11:47 → 6SEL 14:03 → OBSVTOIN 14:35 → 6SEL 14:47
PROVIDERS: ADMIT Internal Medicine; ATTEND Internal Medicine
DX: I63.40 Cerebral infarction due to embolism of unspecified cerebral artery (principal); Q21.1 Atrial septal defect; G81.91 Hemiplegia, unspecified affecting right dominant side; R29.702 NIHSS score 2; E11.9 Type 2 diabetes mellitus without complications; E78.00 Pure hypercholesterolemia, unspecified; E78.5 Hyperlipidemia, unspecified; F17.200 Nicotine dependence, unspecified, uncomplicated; I08.3 Combined rheumatic disorders of mitral, aortic and tricuspid valves; I10 Essential (primary) hypertension; I25.10 Atherosclerotic heart disease of native coronary artery without angina pectoris; I25.2 Old myocardial infarction; J44.9 Chronic obstructive pulmonary disease, unspecified; M35.3 Polymyalgia rheumatica; Z79.02 Long term (current) use of antithrombotics/antiplatelets; Z79.82 Long term (current) use of aspirin; Z79.899 Other long term (current) drug therapy; Z82.49 Family history of ischemic heart disease and other diseases of the circulatory system; Z83.3 Family history of diabetes mellitus; Z86.79 Personal history of other diseases of the circulatory system; Z79.84 Long term (current) use of oral hypoglycemic drugs; Z88.0 Allergy status to penicillin; Z95.1 Presence of aortocoronary bypass graft
CPT/HCPCS: 36415; 70450; 70551; 71046; 80053; 80061; 82550; 82553; 83036; 84484; 85025; 85610; 85730; 93005; 93306; 93312; 93320; 93325; 93880; 93970; 94760; 96360; 99285; 99406

== ENCOUNTER → 2018-07-12 | Outpatient (CLI) | payer MEDICARE ==
[2018-07-12 16:43] LABS: Blood Urea Nitrogen 23 mg/dL (9-20)
--- NOTE | 2018-07-13 09:31 | CT ---
EXAMINATION TYPE: CT angio head neck DATE OF EXAM: 07/12/2018 HISTORY: Cerebral infarction due to embolism. COMPARISON: Carotid ultrasound dated 06/12/2018 and MR brain dated 06/12/2018 CT DLP: 258 mGycm. Automated Exposure Control for Dose Reduction was Utilized. TECHNIQUE: CTA scan of the neck is performed with IV Contrast, patient injected with 65 mL of Isovue 370, axial images are obtained, coronal and sagittal reformatted images are reviewed. Three-D recons tructed images are created on an independent workstation and reviewed. FINDINGS: Carotid/Vascular Structures: There is a conventional anatomic three-vessel branch pattern of the aort ic arch. Mild calcific and noncalcific atheromatous changes are seen of the upper thoracic aorta. No ostial stenosis of the origin of the great vessels. The common carotid arteries bilaterally appear pa tent. There is approximately 60% stenosis in a short segment of the right internal carotid artery at its or igin from the carotid bulb. This extends over 7 mm in length. There is approximately 40% stenosis of the right carotid bulb from calcific and noncalcific atheromatous plaquing this extends over a distan ce of 5 to 6 mm. There is approximately 50% stenosis in a short segment of the left carotid bulb from calcific and non calcific atheromatous plaquing extending over a distance of 6 mm. The remainder of the cervical portions of the internal carotid arteries bilaterally are patent. The l eft vertebral artery is dominant. Cervical portions of the vertebral arteries are patent. No evidence of vascular occlusion, aneurysmal outpouching or dissection of the visualized vasculature. No centra l pulmonary embolus. Other: Moderate multilevel degenerative changes of the cervical spine are seen. Osseous septum and mi ld mucosal thickening of the right maxillary sinus is noted. IMPRESSION: 1. 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 2. Short segment stenosis of the carotid bulbs of 40% on the right and 50% on the left. 3. No evidence of vascular occlusion, aneurysmal outpouching or dissection.
== END | disposition home or self-care (01) ==
LOC: RADCTMAIN 15:56
PROVIDERS: ATTEND Psychiatry & Neurology Neurology
DX: I65.23 Occlusion and stenosis of bilateral carotid arteries (principal)
CPT/HCPCS: 82565; 84520; 70496; 70498; 36415; Q9967

== ENCOUNTER → 2018-10-09 | Outpatient (CLI) | payer MEDICARE ==
[2018-10-09 17:31] LABS: LDL Cholesterol,Calculated 50.4 mg/dL (0.0-131.0); VLDL Calculation 15.6 mg/dL (5.00-40.00)
== END | disposition home or self-care (01) ==
LOC: LABWHC1 08:37
PROVIDERS: ATTEND Nurse Practitioner Adult Health
DX: E78.2 Mixed hyperlipidemia (principal)
CPT/HCPCS: 36415; 80061; 84450; 84460

== ENCOUNTER → 2019-01-11 | Outpatient (CLI) | payer MEDICARE ==
[2019-01-11 10:22] LABS: Basophils % (A) 1 %; Eosinophils # (A) 0.1 k/uL (0-0.7); Eosinophils % (A) 2 %; HCT 41.9 % (39.0-53.0); HGB 13.6 gm/dL (13.0-17.5); Lymphocytes # (A) 1.1 k/uL (1.0-4.8); Lymphocytes % (A) 20 %; MCH 30.7 pg (25.0-35.0); MCHC 32.4 g/dL (31.0-37.0); MCV 94.7 fL (80.0-100.0); Mean Platelet Volume 8.2; Monocytes # (A) 0.4 k/uL (0-1.0); Monocytes % (A) 7 %; Neutrophils # (A) 3.7 k/uL (1.3-7.7); Neutrophils % (A) 68 %; Platelet Count 138 k/uL (150-450); RBC 4.43 m/uL (4.30-5.90); RDW 13.5 % (11.5-15.5); WBC 5.5 k/uL (3.8-10.6)
[2019-01-11 14:30] LABS: Erythrocyte Sedimentation Rate 8 mm/hr (0-15)
[2019-01-11 17:51] LABS: ALT 36 U/L (10-49); AST 35 U/L (14-35); Albumin/Globulin Ratio 2.05 (1.60-3.17); Alkaline Phosphatase 100 U/L (41-126); C Reactive Protein <0.4 mg/dL (0.0-0.8); Calcium 9.2 mg/dL (8.7-10.3); Carbon Dioxide 25.6 mmol/L (21.6-31.8); Chloride 113 mmol/L (96-109); Globulin 2.1 g/dL (1.6-3.3); Glucose 139 mg/dL (70-110); Potassium 4.1 mmol/L (3.5-5.5); Sodium 141 mmol/L (135-145); Total Bilirubin 0.7 mg/dL (0.3-1.2); Total Protein 6.4 g/dL (6.2-8.2)
== END ==
LOC: LABWHC1 09:22
PROVIDERS: ATTEND Internal Medicine Rheumatology
DX: M06.4 Inflammatory polyarthropathy (principal); Z51.81 Encounter for therapeutic drug level monitoring; Z79.1 Long term (current) use of non-steroidal anti-inflammatories (NSAID)
CPT/HCPCS: 36415; 80048; 80076; 85025; 85652; 86140

== ENCOUNTER → 2021-03-06 | Outpatient (CLI) | payer MEDICARE ==
--- NOTE | 2021-03-06 13:26 | CT ---
EXAMINATION TYPE: CT brain wo con DATE OF EXAM: 03/06/2021 HISTORY: Lethargic with weight loss for 3-[address] DLP: 1598.5 mGycm. Automated Exposure Control for Dose Reduction was Utilized. TECHNIQUE: CT scan of the head is performed without contrast. COMPARISON: CT brain June 11, 2018. FINDINGS: There is no acute intracranial hemorrhage or midline shift identified. There is mild-to-m oderate diffuse ventricular and sulcal prominence consistent with diffuse age-related cerebral atroph y. There is moderate low-attenuation in the periventricular white matter consistent with chronic sma ll vessel ischemic change. Vascular calcifications distal internal carotid arteries bilaterally is re demonstrated. Scleral buckle left globe is seen. Paranasal sinuses are grossly clear. IMPRESSION: No acute intracranial hemorrhage or midline shift. There is mild to moderate diffuse ag e-related cerebral atrophy and moderate chronic small vessel ischemic change redemonstrated. No signi ficant change from prior study.
--- NOTE | 2021-03-06 14:07 | CT ---
EXAMINATION TYPE: CT ChestAbdPelvis wo con DATE OF EXAM: 03/06/2021 COMPARISON: Chest CT August 02, 2016. CT abdomen and pelvis September 07, 2016. HISTORY: Lethargic with weight loss for 3-[address] DLP: 585 mGycm. Automated Exposure Control for Dose Reduction was Utilized. TECHNIQUE: CT scan of the thorax, abdomen and pelvis is performed with oral but without IV contrast. FINDINGS: Within the limitations of a noncontrast study, the following observations are made. LUNGS: Dependent atelectasis in the bilateral lower lobes. No concerning new pulmonary nodules or mas ses. No pleural effusion or pneumothorax. MEDIASTINUM: There are no definitive greater than 1 cm mediastinal lymph nodes. No pericardial effu ludwig is seen. Overlying sternal wires and mediastinal clips from CABG procedure. Heart size stable a nd upper limits of normal. Pelvis patient level of the mitral and aortic valve. LIVER/GB: No significant abnormality is appreciated. PANCREAS: No significant abnormality is seen. SPLEEN: Few scattered calcifications throughout the spleen consistent with product of old granulomato us disease. ADRENALS: No significant abnormality is seen. KIDNEYS: Bladder poorly distended with bofy-fw-tbxgmzlp concentric wall thickening. Perhaps mild left -sided hydronephrosis. No obstructing calculus identified bilaterally. Occasional tiny right-sided pe lvic phlebolith. BOWEL: Oral contrast is reaching the level of the terminal ileum making evaluation of distal bowel sl ightly suboptimal. No suspicious small or large bowel dilatation. Mild to moderate prominence of feca l material in the cecum and right colon. Diverticulosis throughout the entire colon. No convincing CT evidence for acute diverticulitis. GENITAL ORGANS: Normal size prostate with central calcifications. LYMPH NODES: No greater than 1cm abdominal or pelvic lymph nodes are appreciated. OSSEOUS STRUCTURES: Dextroconvex scoliosis centered at L2 level. Multilevel spurring and disc space n arrowing in the lumbar spine. Findings most prominent at the L2-L3 level. Grade 1 anterolisthesis L4 on L5. Multilevel facet arthropathy. OTHER: Scar tissue bilateral groin region. There is metallic aorto iliac stent grafting now identifie d. [place] AAA measuring up to 3.6 cm transversely axial image 77. Severe focal calcified plaque right groin region 110 noted. Additional surgical change left groin region axial image 114 with clips. IMPRESSION: No suspicious new mass or adenopathy identified on noncontrast CT. Gwjv-ii-hrwcalit wall thickening of bladder should be correlated clinically.
== END | disposition home or self-care (01) ==
LOC: RADCTMAIN 09:46
PROVIDERS: ATTEND Family Medicine
DX: G31.9 Degenerative disease of nervous system, unspecified (principal); I67.82 Cerebral ischemia; N32.89 Other specified disorders of bladder
CPT/HCPCS: 70450; 71250; 74176

== ENCOUNTER → 2021-08-24 | Outpatient (CLI) | payer MEDICARE ==
[2021-08-24 09:20] LABS: HCT 39.6 % (39.0-53.0); HGB 14.3 gm/dL (13.0-17.5); MCH 33.1 pg (25.0-35.0); MCV 91.8 fL (80.0-100.0); Platelet Count 139 k/uL (150-450); RBC 4.31 m/uL (4.30-5.90); RDW 13.5 % (11.5-15.5); WBC 6.3 k/uL (3.8-10.6)
[2021-08-24 09:29] LABS: ALT 22 U/L (4-49); AST 21 U/L (17-59); African American GFR (CKD) >90 (>60 ml/min/1.73 sqM); Alkaline Phosphatase 71 U/L (38-126); Anion Gap 6 mmol/L; Blood Urea Nitrogen 24 mg/dL (9-20); Calcium 9.5 mg/dL (8.4-10.2); Carbon Dioxide 24 mmol/L (22-30); Chloride 109 mmol/L (98-107); Glucose 116 mg/dL (74-99); Non-African American GFR(CKD) >90 (>60 ml/min/1.73 sqM); Potassium 4.3 mmol/L (3.5-5.1); Sodium 139 mmol/L (137-145); Total Bilirubin 0.5 mg/dL (0.2-1.3); Total Protein 6.8 g/dL (6.3-8.2)
[2021-08-24 18:53] LABS: Chol/HDL Ratio 2.95 Ratio; LDL Cholesterol,Calculated 58.9 mg/dL (0.0-131.0); VLDL Calculation 15.08 mg/dL (5.00-40.00)
--- NOTE | 2021-08-24 20:41 | BD ---
EXAMINATION TYPE: Axial Bone Density DATE OF EXAM: 08/24/2021 COMPARISON: 2013 CLINICAL HISTORY: 80-year-old male osteopenia Height: 5'2 Weight: 122 FRAX RISK QUESTIONS: Glucocorticoids (More than 3mos): y (Ex: prednisone, prednisolone, methylprednisolone, dexamethasone, and hydrocortisone). Secondary Osteoporosis: Current Tobacco Use: y RISK FACTORS HISTORY OF: Diet low in dairy products/other sources of calcium: y Lost more than 2 inches in height since high school: y MEDICATIONS: Prednisone or other steroids: y How Lon years Additional Medications: high blood pressure, metformin, Lipitor Additional History: EXAM MEASUREMENTS: Bone mineral densitometry was performed using the [employer]. Bone mineral density as measured about the Lumbar spine is: ----- L1-L4(G/cm2): 1.375 T Score Values are as follows: ----- L2: -1.1 ----- L3: 4.0 ----- L4: 5.1 ----- L1-L4:1.6 Bone mineral density has: Decreased -3.9% since study of: 02/05/2014 Bone mineral density about the R hip (g/cm2): 0.831 Bone mineral density about the L hip (g/cm2):0.839 T Score values are as follows: -----R Neck: -1.5 -----L Neck: -1.4 -----R Total: -1.2 -----L Total: -0.7 Bone mineral density has: Decreased -7.8% since study of:02/05/2014 IMPRESSION: Osteopenia (T Score between -2.5 and -1). There is slightly increased risk of fracture and the patient may be considered for treatment. Re-Screen 2-5 years. NOTE: T-SCORE=SD OF THE YOUNG ADULT MEAN.
== END | disposition home or self-care (01) ==
LOC: RADBDWWP 07:49
PROVIDERS: ATTEND Internal Medicine Rheumatology
DX: M85.89 Other specified disorders of bone density and structure, multiple sites (principal)
CPT/HCPCS: 77080; 80053; 80061; 85027

== ENCOUNTER → 2022-08-24 | Outpatient (CLI) | payer MEDICARE ==
[2022-08-24 20:08] LABS: ALT 44 U/L (10-49); AST 28 U/L (14-35); Albumin 3.8 g/dL (3.8-4.9); Albumin/Globulin Ratio 1.51 (1.60-3.17); Alkaline Phosphatase 94 U/L (41-126); BUN/Creat Ratio 39.88 Ratio (12.00-20.00); Calcium 9.5 mg/dL (8.7-10.3); Carbon Dioxide 26.2 mmol/L (20.0-27.5); Chloride 101 mmol/L (96-109); Chol/HDL Ratio 3.67 Ratio; Globulin 2.5 g/dL (1.6-3.3); Glucose 142 mg/dL (70-110); LDL Cholesterol,Calculated 52.4 mg/dL (0.0-131.0); Non-African American GFR(CKD) 89.7 (60.0-200.0); Potassium 4.6 mmol/L (3.5-5.5); Sodium 137 mmol/L (135-145); Total Protein 6.4 g/dL (6.2-8.2)
[2022-08-24 23:51] LABS: HCT 38.5 % (39.6-50.0); HGB 12.9 g/dL (13.0-17.0); MCH 30.7 pg (27.0-32.0); MCHC 33.5 g/dL (32.0-37.0); MCV 91.7 fL (80.0-97.0); Mean Platelet Volume 12.3 fL (9.5-12.2); NRBC Per 100 WBC 0 /100 WBCS (0.0-0.0); Platelet Count 174 X 10*3/uL (140-440); RDW 13.4 % (11.5-14.5); WBC 7.17 X 10*3/uL (4.50-10.00)
== END | disposition home or self-care (01) ==
LOC: LABWHC1 13:19
PROVIDERS: ATTEND Family Medicine
DX: E11.9 Type 2 diabetes mellitus without complications (principal); R53.83 Other fatigue
CPT/HCPCS: 36415; 80053; 80061; 83036; 85027

== ENCOUNTER 2022-10-26 08:18 | Day surgery (SDC) | payer MEDICARE ==
[2022-10-22 17:20] VITALS: BMI 24.5
[2022-10-26] MEDS ORDERED: LACTATED RINGERS 1,000 ML IV SCH (08:34)
[2022-10-26] MEDS ORDERED: LIDOCAINE 1% (10MG/ML) FOR IV START INTRADERMA ONE (08:50)
[2022-10-26 09:00] LABS: Glucose,Whole Blood 135 mg/dL (70-110)
[2022-10-26 09:04] VITALS: RESP 16; TEMP 97.2
[2022-10-26] MEDS ORDERED: PROPOFOL 10 MG/ML 20 ML VIAL IV ONE (09:21)
--- NOTE | 2022-10-26 09:39 | P.PCN ---
Date of Procedure: 10/26/22 Procedure(s) Performed: BRIEF HISTORY: Patient is a 82-year-old pleasant white male scheduled for an elective colonoscopy as a part of screening for colon cancer/positive cologuard PROCEDURE PERFORMED: Colonoscopy. PREOPERATIVE DIAGNOSIS: Screening for colon cancer/positive cologuard. IV sedation per Anesthesia. PROCEDURE: After informed consent was obtained, the patient, was brought into the endoscopy unit. IV sedation was administered by Anesthesia under continuous monitoring. Digital rectal examination was normal. Initially the Olympus CF-160 flexible video colonoscope was then inserted in the rectum, gradually advanced into the cecum without any difficulty. Careful examination was performed as the scope was gradually being withdrawn. Ileocecal valve and the appendiceal orifice were visualized and appeared normal. Prep was excellent. Mucosa of the cecum, ascending colon, transverse colon, descending colon, sigmoid colon, and rectum appeared normal. The left sided diverticulosis. Retroflexion was performed in the rectum and all internal hemorrhoids were seen. The patient tolerated the procedure well. IMPRESSION: Normal-appearing colon from rectum to cecum with no evidence of colorectal neoplasia. Moderate left-sided diverticulosis Small internal hemorrhoids RECOMMENDATIONS: Findings of this examination were discussed with the patient as well as his family. He was advised to be a high-fiber diet and fiber supplements a regular basis..
[2022-10-26 10:04] VITALS: PULSE 72
[2022-10-26 10:32] VITALS: BP 151/82
== END 2022-10-26 10:55 | disposition home or self-care (01) ==
LOC: ORWHC2ENDO 08:18
PROVIDERS: ATTEND Internal Medicine Gastroenterology
DX: R19.5 Other fecal abnormalities (principal); K57.30 Diverticulosis of large intestine without perforation or abscess without bleeding; K64.8 Other hemorrhoids; I25.10 Atherosclerotic heart disease of native coronary artery without angina pectoris; Z88.0 Allergy status to penicillin; I11.0 Hypertensive heart disease with heart failure; I50.9 Heart failure, unspecified; E78.5 Hyperlipidemia, unspecified; Z87.891 Personal history of nicotine dependence; E11.9 Type 2 diabetes mellitus without complications; K21.9 Gastro-esophageal reflux disease without esophagitis; Z79.899 Other long term (current) drug therapy; Z98.890 Other specified postprocedural states
CPT/HCPCS: 45378; J2704

== ENCOUNTER 2023-03-10 18:43 | Inpatient (IN) | payer MEDICARE ==
[2023-03-10] MEDS ORDERED: SODIUM CHLORIDE 0.9% 1,000 ML IV STA (19:50)
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
[2023-03-10] MEDS ORDERED: IPRATROPIUM-ALBUTEROL 3 ML NEB INHALATION STA (20:04)
[2023-03-10] MEDS ORDERED: DEXAMETHASONE SOD PHOSPHATE 10 MG/ML 1 ML VIAL IVP STA (20:04)
[2023-03-10 20:43] LABS: Basophils % (A) 1 %; Eosinophils # (A) 0.2 k/uL (0-0.7); Eosinophils % (A) 4 %; HCT 37.4 % (39.0-53.0); HGB 12.9 gm/dL (13.0-17.5); Lymphocytes # (A) 1.6 k/uL (1.0-4.8); Lymphocytes % (A) 31 %; MCH 32.4 pg (25.0-35.0); MCHC 34.5 g/dL (31.0-37.0); MCV 93.9 fL (80.0-100.0); Mean Platelet Volume 9.1; Monocytes # (A) 0.5 k/uL (0-1.0); Monocytes % (A) 10 %; Neutrophils # (A) 2.8 k/uL (1.3-7.7); Neutrophils % (A) 53 %; Platelet Count 138 k/uL (150-450); RBC 3.98 m/uL (4.30-5.90); RDW 13.3 % (11.5-15.5); WBC 5.3 k/uL (3.8-10.6)
--- NOTE | 2023-03-10 20:47 | XR ---
EXAMINATION TYPE: XR chest 1V portable DATE OF EXAM: 03/10/2023 8:32 PM COMPARISON: Chest radiographs from 11/18/2022 TECHNIQUE: XR chest 1V portable Frontal view of the chest. CLINICAL INDICATION:Male, 82 years old with history of weak; FINDINGS: Lungs/Pleura: Low lung volumes are present. There is no evidence of pleural effusion, focal consolida tion, or pneumothorax. Pulmonary vascularity: Unremarkable. Heart/mediastinum: Cardiomediastinal silhouette is unremarkable. Musculoskeletal: No acute osseous pathology. Midline sternotomy wires are noted. IMPRESSION: No acute cardiopulmonary disease/process.
[2023-03-10 20:51] LABS: INR 0.9 (<1.2); Partial Thromboplastin Time 23.9 sec (22.0-30.0); Prothrombin Time 9.6 sec (9.0-12.0)
[2023-03-10 20:55] LABS: ALT 26 U/L (4-49); AST 22 U/L (17-59); African American GFR (CKD) >90 (>60 ml/min/1.73 sqM); Albumin 3.7 g/dL (3.5-5.0); Alkaline Phosphatase 111 U/L (38-126); Anion Gap 8 mmol/L; Blood Urea Nitrogen 31 mg/dL (9-20); Calcium 9.1 mg/dL (8.4-10.2); Carbon Dioxide 25 mmol/L (22-30); Chloride 105 mmol/L (98-107); Glucose 112 mg/dL (74-99); Magnesium 1.8 mg/dL (1.6-2.3); Non-African American GFR(CKD) >90 (>60 ml/min/1.73 sqM); Phosphorus 3.4 mg/dL (2.5-4.5); Potassium 4.4 mmol/L (3.5-5.1); Sodium 138 mmol/L (137-145); Total Bilirubin 0.2 mg/dL (0.2-1.3); Total Protein 6.2 g/dL (6.3-8.2)
--- NOTE | 2023-03-10 21:16 | CT ---
EXAMINATION TYPE: CT brain wo con CT DLP: 1158.4 mGycm, Automated exposure control for dose reduction was used. DATE OF EXAM: 03/10/2023 9:03 PM COMPARISON: 03/06/2021. CLINICAL INDICATION:Male, 82 years old with history of weakness, TECHNIQUE: Brain: Axial CT images of the brain were obtained with coronal and sagittal reformats created and rev iewed. Contrast used: None. Oral contrast used: None. FINDINGS: Brain: Extra-axial spaces: No abnormal extra-axial fluid collections. Ventricular system: Dilatation in proportion to cerebral atrophy. Cerebral parenchyma: Suspected remote injury right frontal lobe hsu radiata new from . Cerebral atrophy. No acute intraparenchymal hemorrhage or mass effect. The melgar-white junction is well differ entiated. Cerebellum: Unremarkable. Mass effect: No evidence of midline shift. Intracranial vasculature: Atherosclerotic calcifications of the intracranial vessels. Soft tissues: Radiopaque foreign body within the soft tissues superior alveolar ridge partially in th e [id number]. Calvarium/osseous structures: No depressed skull fracture. Paranasal sinuses and mastoid air cells: Mild scattered paranasal sinus disease. Visualized orbits: Bilateral aphakia. Posttreatment changes to the left globe. IMPRESSION: 1. No acute intracranial process. 2. Remote right hsu radiata injury. New from 2020. 3. Generalized cerebral atrophy
[2023-03-10] MEDS ORDERED: NALOXONE 0.4 MG/ML 1 ML VIAL IV PRN (22:15)
[2023-03-10] MEDS ORDERED: ONDANSETRON 4 MG/2 ML VIAL IVP PRN (22:15)
[2023-03-10 22:37] LABS: Appearance,Urine Clear (Clear); Bilirubin,Urine Negative (Negative); Blood,Urine Negative (Negative); Color,Urine Light Yellow; Glucose,Urine (UA) Negative (Negative); Ketones,Urine Negative (Negative); Leukocyte Esterase,Urine Negative (Negative); Nitrite,Urine Negative (Negative); Protein,Urine Negative (Negative); Specific Gravity,Urine 1.007 (1.001-1.035); Urobilinogen,Urine <2.0 mg/dL (<2.0)
[2023-03-11] MEDS: SODIUM CHLORIDE 0.9% 1,000 ML IV SCH ×2 (00:51→11:49)
[2023-03-11 07:17] LABS: Basophils % (A) 0 %; Eosinophils % (A) 0 %; HCT 36.4 % (39.0-53.0); HGB 12.2 gm/dL (13.0-17.5); Lymphocytes # (A) 0.4 k/uL (1.0-4.8); Lymphocytes % (A) 10 %; MCH 31.5 pg (25.0-35.0); MCHC 33.4 g/dL (31.0-37.0); MCV 94.3 fL (80.0-100.0); Mean Platelet Volume 9.9; Monocytes # (A) 0.1 k/uL (0-1.0); Monocytes % (A) 2 %; Neutrophils # (A) 3.2 k/uL (1.3-7.7); Neutrophils % (A) 87 %; Platelet Count 126 k/uL (150-450); RBC 3.86 m/uL (4.30-5.90); RDW 13.6 % (11.5-15.5); WBC 3.7 k/uL (3.8-10.6)
[2023-03-11 07:39] LABS: ALT 29 U/L (4-49); AST 27 U/L (17-59); African American GFR (CKD) >90 (>60 ml/min/1.73 sqM); Albumin 3.5 g/dL (3.5-5.0); Alkaline Phosphatase 107 U/L (38-126); Anion Gap 9 mmol/L; Blood Urea Nitrogen 22 mg/dL (9-20); Calcium 8.7 mg/dL (8.4-10.2); Carbon Dioxide 21 mmol/L (22-30); Chloride 110 mmol/L (98-107); Glucose 218 mg/dL (74-99); Magnesium 1.7 mg/dL (1.6-2.3); Non-African American GFR(CKD) >90 (>60 ml/min/1.73 sqM); Phosphorus 2.8 mg/dL (2.5-4.5); Potassium 4.2 mmol/L (3.5-5.1); Sodium 140 mmol/L (137-145); Total Bilirubin 0.2 mg/dL (0.2-1.3)
[2023-03-11] MEDS: CLOPIDOGREL 75 MG TAB PO SCH (08:20)
[2023-03-11] MEDS: ASPIRIN 81 MG PO SCH (08:20)
[2023-03-11] MEDS ORDERED: DEXTROSE 50% SYRINGE 50 ML IVP PRN ×2 (08:48)
[2023-03-11] MEDS: PANTOPRAZOLE 40 MG/10 ML VIAL IVP SCH (09:43)
[2023-03-11 10:23] LABS: ABG Base Excess -0.9 mmol/L; ABG HCO3 23 mmol/L (21-25); ABG PCO2 35 mmHg (35-45); ABG PH 7.43 (7.35-7.45); ABG PO2 78 mmHg (83-108); ABG TCO2 24 mmol/L (19-24); Allen Test Performed? Yes
--- NOTE | 2023-03-11 11:01 | P.CRDCN ---
History of Present Illness History of present illness: HISTORY OF PRESENT ILLNESS: This is a 82-year-old male with a past medical history significant for hypertension, hyperlipidemia, peripheral vascular disease, nicotine dependence, coronary artery disease with previous four-vessel CABG in 2016 (LIMALAD, VGD1, VGOM1, VGRCA), and AAA repair in 2017. Patient follows in the office with Dr. Ruiz. We have been asked to see the patient in consultation for weakness. Patient examined at the bedside. The patient underwent lower extremity angiogram at [facility] on Tuesday with Dr. Henriquez. Per patient, he was found to have a 90% blockage in his right lower extremity and is scheduled to have intervention in the near future. The patient states he has been feeling dizzy and lightheaded at home. The family member at the bedside states his oxygen levels have been running low. He reports feeling weak and having multiple falls at home since having the procedure performed. He apparently has also been losing weight and does not have much of an appetite. He denied any chest pain or pressure. Denied any shortness of breath. He denied having any palpitations. * EKG reveals sinus mechanism with no signs of acute ischemia * Chest xray negative for acute process * CT brain: No acute intracranial process. Remote right cornea radiata injury. new from 2020 * Laboratory data: WBC 3.7. Hemoglobin 12.2. Platelet count 126. Sodium 140. Potassium 4.2. BUN 22. Creatinine 0.47. Troponin negative 3. * Current home cardiac medications include aspirin 81 mg daily, Lipitor 80 mg at night, lisinopril 10 mg twice a day, Plavix 75 mg daily * Most recent echocardiogram obtained in November 2022 revealed normal ejection fraction, mild MR, moderate TR, moderate AR * Patient underwent VAUGHN and June 2018 revealing normal left ventricular size and systolic function, normal appearance left atrial appendage, mild mitral, tricuspid, and aortic regurgitation, evidence of shunting across the patent foramen ovale with [id number] shunting with Valsalva maneuver and highly mobile intra-atrial septum, mild atherosclerotic changes of descending thoracic aorta, no evidence of pericardial effusion. REVIEW OF SYSTEMS: At the time of my exam: CONSTITUTIONAL: Denies fever or chills. HEENT: Denies blurred vision, vision changes, or eye pain. Denies hemoptysis CARDIOVASCULAR: Denies chest pain. Denies orthopnea. Denies PND. Denies palpitations RESPIRATORY: Denies shortness of breath. GASTROINTESTINAL: Denies abdominal pain. Denies nausea or vomiting. HEMATOLOGIC: Denies bleeding disorders. GENITOURINARY: Denies any blood in urine. SKIN: Denies pruitis. Denies rash. PHYSICAL EXAM: VITAL SIGNS: Reviewed. GENERAL: Well-developed in no acute distress. HEENT: Head is normocephalic. Pupils are equal, round. Sclerae anicteric. Mucous membranes of the mouth are moist. Neck supple. No JVD or thyromegaly LUNGS: Respirations even and unlabored. Lungs essentially clear to auscultation bilaterally. HEART: Regular rate and rhythm. S1 and S2 heard. Systolic murmur noted. ABDOMEN: Soft. Nondistended. Nontender. EXTREMITIES: Normal range of motion. No clubbing or cyanosis. Peripheral pulses intact. No lower extremity edema NEUROLOGIC: Awake and alert. Oriented x 3. ASSESSMENT: Generalized weakness with frequent falls at home Dizziness and lightheadedness Decreased appetite with weight loss Recent lower extremity angiogram revealing 90% blockage of right lower extremity, per patient Coronary artery disease with previous four-vessel CABG in 2016 History of AAA repair, 2017 Peripheral vascular disease PFO, per VAUGHN in 2018 History of TIA Hypertension Hyperlipidemia Ongoing nicotine dependence PLAN: Obtain 2-D echo to assess cardiac structure and function Resume home cardiac medications Patient's symptoms of increased weakness, falls, decreased appetite, and dizziness do not appear to be cardiac in nature Await evaluation by pulmonary, neurology, and hematology Patient is currently stable from a cardiac standpoint Recommend smoking cessation Further recommendations pending patient's course Nurse practitioner note has been reviewed by physician. Signing provider agrees with the documented findings, assessment, and plan of care. Past Medical History Past Medical History: Chest Pain / Angina, Heart Failure, COPD, Diabetes Mellitus, Hyperlipidemia, Hypertension, Myocardial Infarction ([place]) Additional Past Medical History / Comment(s): polymyalgia rheumatica, left eye damaged 1998-pupil is misshaped and does not dilate, PFO-current Last Myocardial Infarction Date:: 2015 History of Any Multi-Drug Resistant Organisms: None Reported Past Surgical History: Coronary Bypass/CABG, Orthopedic Surgery Additional Past Surgical History / Comment(s): LEFT EYE SURGERY, LEFT KNEE SURGERY, triple A repair [facility], right eye cataract removed 2014, 5 vessel CABG, RIGHT CAROTID AT [facility], ROMY CARP TUNNEL RELEASE Past Anesthesia/Blood Transfusion Reactions: No Reported Reaction Past Psychological History: No Psychological Hx Reported Smoking Status: Current every day smoker Past Alcohol Use History: Rare Past Drug Use History: None Reported - Past Family History Father Family Medical History: CVA/TIA Additional Family Medical History / Comment(s): Father has history of several CVAs. No ID in the past. Mother Family Medical History: Diabetes Mellitus Additional Family Medical History / Comment(s): Mother has history of diabetes. Family denies stroke, ID, cancer. Brother(s) Family Medical History: Diabetes Mellitus, Myocardial Infarction (ID) Additional Family Medical History / Comment(s): Adult children with no major medical problems. Medications and Allergies Home Medications Medication Instructions Recorded Confirmed Type Clopidogrel [Plavix] 75 mg PO DAILY #90 tab 08/10/16 03/10/23 Rx predniSONE 2.5 mg PO SUTUTHSA 02/25/17 03/10/23 History Atorvastatin [Lipitor] 80 mg PO HS 10/22/22 03/10/23 History Cholecalciferol [Vitamin D3 (25 25 mcg PO DAILY 10/22/22 03/10/23 History Mcg = 1000 Iu)] Glucos Sul 2Kcl/MSM/Chond/C/Mn 1 cap PO DAILY 10/22/22 03/10/23 History [Glucosamine Chondroitin Cap] Meloxicam [Mobic] 7.5 mg PO BID 10/22/22 03/10/23 History Mv-Mn/Om3/Dha/Epa/Fish/Lut/Erica 1 cap PO DAILY 10/22/22 03/10/23 History [Ocuvite Adult 50 Plus Softgel] Ubidecarenone [Co Q-10] 400 mg PO DAILY 10/22/22 03/10/23 History glipiZIDE XL [Glucotrol XL] 5 mg PO DAILY 10/22/22 03/10/23 History lisinopriL [Zestril] 10 mg PO BID 10/22/22 03/10/23 History Aspirin EC [Ecotrin Low Dose] 81 mg PO DAILY 03/10/23 03/10/23 History Multi-Collagen 2 tab PO HS 03/10/23 03/10/23 History Multivit-Min/FA/Lycopen/Lutein 1 tab PO DAILY 03/10/23 03/10/23 History [Centrum Silver Men Tablet] Vitamin B Complex 1 cap PO DAILY 03/10/23 03/10/23 History Allergies Allergy/AdvReac Type Severity Reaction Status Date / Time Penicillins Allergy Unknown Verified 03/10/23 20:20 Physical Exam Vitals: Vital Signs Temp Pulse Resp BP Pulse Ox 03/11/23 08:13 64 16 134/77 99 03/11/23 07:51 97 03/11/23 06:47 72 16 145/82 97 03/11/23 05:41 69 18 110/73 94 L 03/11/23 04:09 73 12 134/58 98 03/11/23 02:44 87 17 140/90 97 03/11/23 01:59 94 17 128/75 97 03/11/23 01:05 74 03/11/23 00:51 67 03/10/23 21:31 65 16 162/72 97 03/10/23 20:12 62 15 114/61 98 03/10/23 18:58 98.0 F 66 20 127/84 97 Intake and Output 03/10/23 03/11/23 03/11/23 22:59 06:59 14:59 Other: Weight 54.885 kg Results 03/11/23 06:06 03/11/23 06:06 Cardiac Enzymes 03/10/23 03/10/23 03/10/23 Range/Units 20:12 20:12 23:38 AST 22 (17-59) U/L Troponin I <0.012 <0.012 (0.000-0.034) ng/mL 03/11/23 03/11/23 Range/Units 01:58 06:06 AST 27 (17-59) U/L Troponin I <0.012 (0.000-0.034) ng/mL Coagulation 03/10/23 Range/Units 20:12 PT 9.6 (9.0-12.0) sec APTT 23.9 (22.0-30.0) sec CBC 03/10/23 03/11/23 Range/Units 20:12 06:06 WBC 5.3 3.7 L (3.8-10.6) k/uL RBC 3.98 L 3.86 L (4.30-5.90) m/uL Hgb 12.9 L 12.2 L (13.0-17.5) gm/dL Hct 37.4 L 36.4 L (39.0-53.0) % Plt Count 138 L 126 L (150-450) k/uL Comprehensive Metabolic Panel 03/10/23 03/11/23 Range/Units 20:12 06:06 Sodium 138 140 (137-145) mmol/L Potassium 4.4 4.2 (3.5-5.1) mmol/L Chloride 105 110 H (98-107) mmol/L Carbon Dioxide 25 21 L (22-30) mmol/L BUN 31 H 22 H (9-20) mg/dL Creatinine 0.54 L 0.47 L (0.66-1.25) mg/dL Glucose 112 H 218 H (74-99) mg/dL Calcium 9.1 8.7 (8.4-10.2) mg/dL AST 22 27 (17-59) U/L ALT 26 29 (4-49) U/L Alkaline Phosphatase 111 107 (38-126) U/L Total Protein 6.2 L 6.0 L (6.3-8.2) g/dL Albumin 3.7 3.5 (3.5-5.0) g/dL Current Medications Generic Name Dose Route Start Last Admin Trade Name Freq PRN Reason Stop Dose Admin Aspirin 81 mg 03/11/23 09:00 03/11/23 08:20 Aspirin 81 Mg PO 81 mg DAILY MIREYA Administration Atorvastatin Calcium 80 mg 03/11/23 21:00 Atorvastatin 80 Mg Tab PO HS [facility] Clopidogrel Bisulfate 75 mg 03/11/23 09:00 03/11/23 08:20 Clopidogrel 75 Mg Tab PO 75 mg DAILY MIREYA Administration Dextrose/Water 25 ml 03/11/23 08:48 Dextrose 50% Syringe 50 Ml IVP PER PROTOCOL PRN Hypoglycemia Protocol Dextrose/Water 50 ml 03/11/23 08:48 Dextrose 50% Syringe 50 Ml IVP PER PROTOCOL PRN Hypoglycemia Protocol Sodium Chloride 1,000 mls @ 75 mls/hr 03/10/23 22:15 03/11/23 00:51 Saline 0.9% IV 75 mls/hr .[id number] MIREYA Administration Insulin Aspart 0 unit 03/11/23 12:30 Insulin Aspart (Novolog) 100 Unit/Ml Vial SQ ACHS MIREYA Protocol Naloxone HCl 0.2 mg 03/10/23 22:15 Naloxone 0.4 Mg/Ml 1 Ml Vial IV Q2M PRN Opioid Reversal Ondansetron HCl 4 mg 03/10/23 22:15 Ondansetron 4 Mg/2 Ml Vial IVP Q8HR PRN Nausea And Vomiting Pantoprazole Sodium 40 mg 03/11/23 09:00 Pantoprazole 40 Mg/10 Ml Vial IVP DAILY MIREYA Intake and Output 03/10/23 03/11/23 03/11/23 22:59 06:59 14:59 Other: Weight 54.885 kg 03/11/23 06:06 03/11/23 06:06
[2023-03-11 11:45] LABS: Glucose,Whole Blood 190 mg/dL (70-110)
[2023-03-11] MEDS: INSULIN ASPART (NovoLOG) 100 UNIT/ML VIAL SQ SCH ×3 (12:14→21:43)
--- NOTE | 2023-03-11 13:20 | P.CNPUL ---
History of Present Illness Consult date: 03/11/23 Requesting physician: Cdoy Perez Reason for consult: hypoxemia Chief complaint: Shortness of breath, dizziness History of present illness: This is a very pleasant 82-year-old male patient with a known history of hyperlipidemia, diabetes mellitus, hypertension, polymyalgia rheumatica, coronar y artery disease with previous coronary artery bypass grafting 5 in 2016, AAA repair, chronic tobacco dependence mainly and not of cigars. Smoking cigarettes many years ago. He had recently undergone a procedure at [facility] for right lower extremity arterial occlusion according to the patient and family. This was done 1 week ago. He had been having issues with dizziness shortness of breath and oxygen saturations at 91% and there is concern he may have a complication from his procedure and he was brought to the emergency room yesterday for the same. Chest x-ray shows no acute pulmonary process. White count 2.7. Hemoglobin 12.2. Platelets 126. Sodium 140. Potassium 4.2. Bicarb 21. BUN 22. Creatinine 0.47. Glucose 218. Troponin negative 1. He is seen today in consultation in the emergency department. Currently sitting up in bed. Awake and alert in no acute distress. Currently maintaining O2 saturation in the mid to upper 90s on room air. He's afebrile. Hemodynamically stable. Normal saline at 75 ML's per hour. Review of Systems REVIEW OF SYSTEMS: CONSTITUTIONAL: Denies any recent significant weight loss or weight gain. EYES: Denies change in vision. EARS, NOSE, MOUTH, THROAT: Denies headaches, denies sore throat. CARDIOVASCULAR: Positive for dizziness. Denies chest pain, palpitations or syncopal episodes. RESPIRATORY: Positive for shortness of breath, no cough, congestion or hemoptysis. GASTROINTESTINAL: Denies change in appetite, denies abdominal pain GENITOURINARY: Denies hematuria, denies infections. MUSKULOSKELETAL: Denies pain, denies swelling. INTEGUMENTARY: Denies rash, denies eczema. NEUROLOGICAL: Denies recent memory loss, no recent seizure activity. PSYCHIATRIC: Denies anxiety, denies depression. HEMATOLOGIC/LYMPHATIC: Denies anemia, denies enlarged lymph nodes. Past Medical History Past Medical History: Chest Pain / Angina, Heart Failure, COPD, Diabetes Melli tus, Hyperlipidemia, Hypertension, Myocardial Infarction ([place]) Additional Past Medical History / Comment(s): polymyalgia rheumatica, left eye damaged 1998-pupil is misshaped and does not dilate, PFO-current Last Myocardial Infarction Date:: 2015 History of Any Multi-Drug Resistant Organisms: None Reported Past Surgical History: Coronary Bypass/CABG, Orthopedic Surgery Additional Past Surgical History / Comment(s): LEFT EYE SURGERY, LEFT KNEE SURGERY, triple A repair [facility], right eye cataract removed 2014, 5 vessel CABG, RIGHT CAROTID AT [facility], ROMY CARP TUNNEL RELEASE Past Anesthesia/Blood Transfusion Reactions: No Reported Reaction Past Psychological History: No Psychological Hx Reported Smoking Status: Current every day smoker Past Alcohol Use History: Rare Past Drug Use History: None Reported - Past Family History Father Family Medical History: CVA/TIA Additional Family Medical History / Comment(s): Father has history of several CVAs. No [place] in the past. Mother Family Medical History: Diabetes Mellitus Additional Family Medical History / Comment(s): Mother has history of diabetes. Family denies stroke, [place], cancer. Brother(s) Family Medical History: Diabetes Mellitus, Myocardial Infarction ([place]) Additional Family Medical History / Comment(s): Adult children with no major medical problems. Medications and Allergies Home Medications Medication Instructions Recorded Confirmed Type Clopidogrel [Plavix] 75 mg PO DAILY #90 tab 08/10/16 03/10/23 Rx predniSONE 2.5 mg PO SUTUTHSA 02/25/17 03/10/23 History Atorvastatin [Lipitor] 80 mg PO HS 10/22/22 03/10/23 History Cholecalciferol [Vitamin D3 (25 25 mcg PO DAILY 10/22/22 03/10/23 History Mcg = 1000 Iu)] Glucos Sul 2Kcl/MSM/Chond/C/Mn 1 cap PO DAILY 10/22/22 03/10/23 History [Glucosamine Chondroitin Cap] Meloxicam [Mobic] 7.5 mg PO BID 10/22/22 03/10/23 History Mv-Mn/Om3/Dha/Epa/Fish/Lut/Erica 1 cap PO DAILY 10/22/22 03/10/23 History [Ocuvite Adult 50 Plus Softgel] Ubidecarenone [Co Q-10] 400 mg PO DAILY 10/22/22 03/10/23 History glipiZIDE XL [Glucotrol XL] 5 mg PO DAILY 10/22/22 03/10/23 History lisinopriL [Zestril] 10 mg PO BID 10/22/22 03/10/23 History Aspirin EC [Ecotrin Low Dose] 81 mg PO DAILY 03/10/23 03/10/23 History Multi-Collagen 2 tab PO HS 03/10/23 03/10/23 History Multivit-Min/FA/Lycopen/Lutein 1 tab PO DAILY 03/10/23 03/10/23 History [Centrum Silver Men Tablet] Vitamin B Complex 1 cap PO DAILY 03/10/23 03/10/23 History Allergies Allergy/AdvReac Type Severity Reaction Status Date / Time Penicillins Allergy Unknown Verified 03/10/23 20:20 Physical Exam Vitals: Vital Signs Temp Pulse Resp BP Pulse Ox 03/11/23 08:13 64 16 134/77 99 03/11/23 07:51 97 03/11/23 06:47 72 16 145/82 97 03/11/23 05:41 69 18 110/73 94 L 03/11/23 04:09 73 12 134/58 98 03/11/23 02:44 87 17 140/90 97 03/11/23 01:59 94 17 128/75 97 03/11/23 01:05 74 03/11/23 00:51 67 03/10/23 21:31 65 16 162/72 97 03/10/23 20:12 62 15 114/61 98 03/10/23 18:58 98.0 F 66 20 127/84 97 Intake and Output 03/10/23 03/11/23 03/11/23 22:59 06:59 14:59 Other: Weight 54.885 kg GENERAL EXAM: Alert, pleasant 82-year-old male, on room air, comfortable in no apparent distress. HEAD: Normocephalic. EYES: Normal reaction of pupils, equal size. NOSE: Clear with pink turbinates. THROAT: No erythema or exudates. NECK: No masses, no JVD. CHEST: No chest wall deformity. LUNGS: Equal air entry with no crackles, wheeze, rhonchi or dullness. CVS: S1 and S2 normal with an audible murmur, regular rhythm. ABDOMEN: No hepatosplenomegaly, normal bowel sounds, no guarding or rigidity. SPINE: No scoliosis or deformity SKIN: No rashes CENTRAL NERVOUS SYSTEM: No focal deficits, tone is normal in all 4 extremities. EXTREMITIES: There is no peripheral edema. No clubbing, no cyanosis. Pe ripheral pulses are intact. Results - Laboratory Findings CBC and BMP: 03/11/23 06:06 03/11/23 06:06 ABG ABG pH 7.43 (7.35-7.45) 03/11/23 10:19 ABG pCO2 35 mmHg (35-45) 03/11/23 10:19 ABG pO2 78 mmHg (83-108) L 03/11/23 10:19 ABG O2 Saturation 97.0 % (94-97) 03/11/23 10:19 PT/INR, D-dimer PT 9.6 sec (9.0-12.0) 03/10/23 20:12 INR 0.9 (<1.2) 03/10/23 20:12 D-Dimer 3.37 mg/L FEU (<0.60) H 03/11/23 11:46 Abnormal lab findings: Abnormal Labs 03/10/23 03/10/23 03/11/23 20:12 20:12 06:06 WBC 3.7 L RBC 3.98 L 3.86 L Hgb 12.9 L 12.2 L Hct 37.4 L 36.4 L Plt Count 138 L 126 L Lymphocytes # 0.4 L D-Dimer ABG pO2 Chloride Carbon Dioxide BUN 31 H Creatinine 0.54 L Glucose 112 H POC Glucose (mg/dL) Total Protein 6.2 L 03/11/23 03/11/23 03/11/23 06:06 10:19 11:43 WBC RBC Hgb Hct Plt Count Lymphocytes # D-Dimer ABG pO2 78 L Chloride 110 H Carbon Dioxide 21 L BUN 22 H Creatinine 0.47 L Glucose 218 H POC Glucose (mg/dL) 190 H Total Protein 6.0 L 03/11/23 11:46 WBC RBC Hgb Hct Plt Count Lymphocytes # D-Dimer 3.37 H ABG pO2 Chloride Carbon Dioxide BUN Creatinine Glucose POC Glucose (mg/dL) Total Protein - Diagnostic Findings Chest x-ray: image reviewed Assessment and Plan Assessment: Shortness of breath and dizziness of unclear etiology. Chest x-ray shows no acute pulmonary process. Computed tomography scan of the brain reveals no acute intracranial process. Peripheral arterial disease with recent procedure done at [facility] one week ago Coronary artery disease with previous coronary artery bypass grafting in 2016 History of right carotid endarterectomy History of polymyalgia rheumatica History of patent foramen ovale Diabetes mellitus Hyperlipidemia Hypertension Chronic tobacco dependence in the form of cigars approximately 5 per day History of chronic tobacco dependence in the form of cigarettes Plan: The patient was seen and evaluated Chest x-ray, CT brain, medications and labs reviewed Obtain a room air arterial blood gas Check a d-dimer Echocardiogram CT angiogram if elevated d-dimer We will continue to follow and make further recommendations based on his clinical status I have personally seen and examined the patient, performed the documentation and the assessment and plan as written. Number of minutes spent on the visit: 20.
--- NOTE | 2023-03-11 13:24 | CA ---
Transthoracic Echo Report Name: Onur Lyon Age: 82 Gender: M : 1940 Exam Date: 03/11/2023 10:25 Exam Location: [facility] Ht (in): 63 Wt (lb): 121 Ordering Physician: Zainab Bonds Attending/Referring Phys: Sales And Marketing Administrator Jenn Vazquez RDCS Procedure CPT: Indications: dyspnea, murmur Cardiac Hx: CABG Technical Quality: Good Contrast 1: Total Dose (mL): Contrast 2: Total Dose (mL): MEASUREMENTS (Male / Female) Normal Values 2D ECHO LV Diastolic Diameter PLAX 3.4 cm 4.2 - 5.9 / 3.9 - 5.3 cm LV Systolic Diameter PLAX 2.4 cm IVS Diastolic Thickness 1.3 cm 0.6 - 1.0 / 0.6 - 0.9 cm LVPW Diastolic Thickness 1.2 cm 0.6 - 1.0 / 0.6 - 0.9 cm LV Relative Wall Thickness 0.7 RV Internal Dim ED PLAX 3.3 cm LVOT Diameter 2.0 cm LA Systolic Diameter LX 4.1 cm 3.0 - 4.0 / 2.7 - 3.8 cm LV Diastolic Volume MOD 4C 60.8 cm??? LV Systolic Volume MOD 4C 24.2 cm??? LV Ejection Fraction MOD 4C 60.1 % LV Diastolic Length 4C 7.5 cm LV Systolic Length 4C 6.0 cm LV Diastolic Volume MOD 2C 66.3 cm??? LV Systolic Volume MOD 2C 25.7 cm??? LV Ejection Fraction MOD 2C 61.2 % LV Diastolic Length 2C 8.1 cm LV Systolic Length 2C 6.8 cm LA Volume 58.4 cm??? 18 - 58 / 22 - 52 cm??? M-MODE Aortic Root Diameter MM 3.6 cm MV E Point Septal Separation 0.9 cm AV Cusp Separation MM 1.2 cm DOPPLER AV Peak Velocity 230.2 cm/s AV Peak Gradient 21.2 mmHg AV Mean Velocity 144.9 cm/s AV Mean Gradient 9.7 mmHg AV Velocity Time Integral 54.4 cm AI Peak Velocity 258.5 cm/s AI Peak Gradient 26.7 mmHg AI Pressure Half Time 555.0 ms LVOT Peak Velocity 123.7 cm/s LVOT Peak Gradient 6.1 mmHg AV Area Cont Eq pk 1.8 cm??? MV Area PHT 2.9 cm??? Mitral E Point Velocity 135.9 cm/s Mitral A Point Velocity 155.9 cm/s Mitral E to A Ratio 0.9 MV Deceleration Time 264.2 ms MV E' Velocity 3.6 cm/s Mitral E to MV E' Ratio 37.3 TR Peak Velocity 261.0 cm/s TR Peak Gradient 27.2 mmHg Right Ventricular Systolic Press 32.1 mmHg FINDINGS Left Ventricle Left ventricular ejection fraction is estimated at 60-65 %. Small left ventricular cavity. Mildly increased septal wall thickness. Hyperdynamic LV Right Ventricle Mild right ventricular dilatation. Right ventricular systolic pressure within normal limits. Right Atrium Normal right atrial size. Left Atrium Mildly increased left atrial area. Mitral Valve Mitral valve thickened. Mild mitral annular calcification. Trace mitral regurgitation. Aortic Valve Trileaflet aortic valve. Diffuse thickening of the aortic valve cusps with reduced excursion. Mild aortic stenosis with a peak gradient of 21 mmHg and a mean gradient of 10 mmHg. Mild aortic regurgitation. Tricuspid Valve Structurally normal tricuspid valve. Mild tricuspid regurgitation. Pulmonic Valve Structurally normal pulmonic valve. Mild pulmonic regurgitation. Pericardium Normal pericardium. No pericardial effusion. Aorta Normal size aortic root and proximal ascending aorta. CONCLUSIONS Normal LV systolic function Aortic sclerosis with mild aortic stenosis and mean gradient of 10 mmHg. Mild aortic insufficiency Previewed by: Dr. Noel Arana MD (Electronically Signed) Final Date: 11 March 2023 13:23
--- NOTE | 2023-03-11 14:12 | CT ---
EXAMINATION TYPE: CT angio chest DATE OF EXAM: 03/11/2023 2:00 PM COMPARISON: 08/02/2016 HISTORY: Dyspnea. Elevated d-dimer and recent surgery. CT DLP: 318.4 mGycm Automated exposure control for dose reduction was used. CONTRAST: CTA scan of the thorax is performed with IV Contrast, patient injected with 80ml mL of Isovue 370, pu lmonary embolism protocol. 3-D postprocessing was performed. FINDINGS: Examination of the lungs is mildly limited due to involuntary patient motion. There is no airspace co nsolidation or abnormal interstitial density. There is no pleural effusion, pleural thickening or pneumothorax. Great vessels the chest are normal. There is no filling defect within the pulmonary artery or branches and no evidence of pulmonary embo lism. There is no mediastinal, hilar or axillary adenopathy. There is mild to moderate cardiomegaly. Limited scans through upper abdomen reveals no gross abnormality with exception of a markedly distend ed stomach with contents. There is evidence for an aortic stent graft. IMPRESSION: 1. No evidence of pulmonary embolism 2. No acute cardiopulmonary disease. 3. Distended stomach.
[2023-03-11] MEDS ORDERED: Magnesium Replacement Protocol 1 EACH MISC MISCELLANE PRN (14:22)
--- NOTE | 2023-03-11 14:23 | P.HPIM ---
History of Present Illness H&P Date: 03/11/23 Chief Complaint: Increased weakness, dizziness This is a pleasant 82-year-old gentleman with past medical history significant for hypertension, hyperlipidemia, CAD, CABG, polymyalgia rheumatica, ongoing nicotine dependence-smokes 2-5 cigars daily, CVA, TIA, PAD, recent Angio Tuesday03/07/23 at [facility], brought into the ER with complaints of multiple falls, losing balance, dizziness, lightheadedness and multiple other medical issues. Patient reports over the last 2 weeks he has been losing his balance and having multiple falls at home. He reports that yesterday ,he became dizzy, fell over backwards at home, attempted to catch himself, caught the side of the couch-Denies head trauma. Denies chest pain, palpitations or shortness of breath. Reports he is on Plavix and aspirin for groin stent. Chest x-ray reported non acute. Afebrile, WBC 3.7, hemoglobin 12.2, platelets 126, d-dimer pending, sodium 140, potassium 4.2, bicarb 21, BUN 22, creatinine 0.47, glucose 218 magnesium 1.7, LFTs within normal limits, troponins negative 3. VSS,Maintaining O2 sats in the 90s on room air. Review of Systems ROS Statement: Those systems with pertinent positive or pertinent negative responses have been documented in the HPI. ROS Other: All systems not noted in ROS Statement are negative. Past Medical History Past Medical History: Chest Pain / Angina, Heart Failure, COPD, Diabetes Mellitus, Hyperlipidemia, Hypertension, Myocardial Infarction ([place]) Additional Past Medical History / Comment(s): polymyalgia rheumatica, left eye damaged 1998-pupil is misshaped and does not dilate, PFO-current Last Myocardial Infarction Date:: 2015 History of Any Multi-Drug Resistant Organisms: None Reported Past Surgical History: Coronary Bypass/CABG, Orthopedic Surgery Additional Past Surgical History / Comment(s): LEFT EYE SURGERY, LEFT KNEE SURGERY, triple A repair [facility], right eye cataract removed 2014, 5 vessel CABG, RIGHT CAROTID AT [facility], ROMY CARP TUNNEL RELEASE Past Anesthesia/Blood Transfusion Reactions: No Reported Reaction Past Psychological History: No Psychological Hx Reported Smoking Status: Current every day smoker Past Alcohol Use History: Rare Past Drug Use History: None Reported - Past Family History Father Family Medical History: CVA/TIA Additional Family Medical History / Comment(s): Father has history of several CVAs. No [place] in the past. Mother Family Medical History: Diabetes Mellitus Additional Family Medical History / Comment(s): Mother has history of diabetes. Family denies stroke, [place], cancer. Brother(s) Family Medical History: Diabetes Mellitus, Myocardial Infarction ([place]) Additional Family Medical History / Comment(s): Adult children with no major medical problems. Medications and Allergies Home Medications Medication Instructions Recorded Confirmed Type Clopidogrel [Plavix] 75 mg PO DAILY #90 tab 08/10/16 03/10/23 Rx predniSONE 2.5 mg PO SUTUTHSA 02/25/17 03/10/23 History Atorvastatin [Lipitor] 80 mg PO HS 10/22/22 03/10/23 History Cholecalciferol [Vitamin D3 (25 25 mcg PO DAILY 10/22/22 03/10/23 History Mcg = 1000 Iu)] Glucos Sul 2Kcl/MSM/Chond/C/Mn 1 cap PO DAILY 10/22/22 03/10/23 History [Glucosamine Chondroitin Cap] Meloxicam [Mobic] 7.5 mg PO BID 10/22/22 03/10/23 History Mv-Mn/Om3/Dha/Epa/Fish/Lut/Erica 1 cap PO DAILY 10/22/22 03/10/23 History [Ocuvite Adult 50 Plus Softgel] Ubidecarenone [Co Q-10] 400 mg PO DAILY 10/22/22 03/10/23 History glipiZIDE XL [Glucotrol XL] 5 mg PO DAILY 10/22/22 03/10/23 History lisinopriL [Zestril] 10 mg PO BID 10/22/22 03/10/23 History Aspirin EC [Ecotrin Low Dose] 81 mg PO DAILY 03/10/23 03/10/23 History Multi-Collagen 2 tab PO HS 03/10/23 03/10/23 History Multivit-Min/FA/Lycopen/Lutein 1 tab PO DAILY 03/10/23 03/10/23 History [Centrum Silver Men Tablet] Vitamin B Complex 1 cap PO DAILY 03/10/23 03/10/23 History Allergies Allergy/AdvReac Type Severity Reaction Status Date / Time Penicillins Allergy Unknown Verified 03/10/23 20:20 Physical Exam Vitals: Vital Signs Temp Pulse Resp BP Pulse Ox 03/11/23 08:13 64 16 134/77 99 03/11/23 07:51 97 03/11/23 06:47 72 16 145/82 97 03/11/23 05:41 69 18 110/73 94 L 03/11/23 04:09 73 12 134/58 98 03/11/23 02:44 87 17 140/90 97 03/11/23 01:59 94 17 128/75 97 03/11/23 01:05 74 03/11/23 00:51 67 03/10/23 21:31 65 16 162/72 97 03/10/23 20:12 62 15 114/61 98 03/10/23 18:58 98.0 F 66 20 127/84 97 Intake and Output 03/10/23 03/11/23 03/11/23 22:59 06:59 14:59 Other: Weight 54.885 kg PHYSICAL EXAM: VITAL SIGNS: As above GENERAL: Sitting up on stretcher,NAD HEENT: Normocephalic ,Conjunctivae normal. eyes normal. NECK: Supple, No JVD. No thyroid enlargement. No LNs CARDIOVASCULAR: S1, S2 regular. Systolic murmur RESPIRATION: Breath sounds diminished in the bases. No rhonchi or crackles. No bronchial breathing. ABDOMEN: Soft, nondistended, nontender. No guarding. no masses palpable. No ascites, No hepatosplenomegaly.Bowel sounds heard. LEGS: No edema. no swelling PSYCHIATRY: Alert and oriented X3, mood and affect normal. NERVOUS SYSTEM: Cranial N 2-12 grossly normal.No focal deficits. Strength and sensation grossly intact.. Skin: Warm and dry , no rash Results CBC & Chem 7: 03/11/23 06:06 03/11/23 06:06 Labs: Abnormal Lab Results - Last 24 Hours (Table) 03/10/23 03/10/23 03/11/23 Range/Units 20:12 20:12 06:06 WBC 3.7 L (3.8-10.6) k/uL RBC 3.98 L 3.86 L (4.30-5.90) m/uL Hgb 12.9 L 12.2 L (13.0-17.5) gm/dL Hct 37.4 L 36.4 L (39.0-53.0) % Plt Count 138 L 126 L (150-450) k/uL Lymphocytes # 0.4 L (1.0-4.8) k/uL Chloride (98-107) mmol/L Carbon Dioxide (22-30) mmol/L BUN 31 H (9-20) mg/dL Creatinine 0.54 L (0.66-1.25) mg/dL Glucose 112 H (74-99) mg/dL Total Protein 6.2 L (6.3-8.2) g/dL 03/11/23 Range/Units 06:06 WBC (3.8-10.6) k/uL RBC (4.30-5.90) m/uL Hgb (13.0-17.5) gm/dL Hct (39.0-53.0) % Plt Count (150-450) k/uL Lymphocytes # (1.0-4.8) k/uL Chloride 110 H (98-107) mmol/L Carbon Dioxide 21 L (22-30) mmol/L BUN 22 H (9-20) mg/dL Creatinine 0.47 L (0.66-1.25) mg/dL Glucose 218 H (74-99) mg/dL Total Protein 6.0 L (6.3-8.2) g/dL Assessment and Plan Assessment: Multiple recent falls secondary to reported increased generalized weakness, dizziness, (shortness of breath, decrease appetite, intermittent episodes of confusion-per note left by daughter at bedside )workup in progress PAD, recent Angio on Tuesday03/07/23 at [facility] Polymyalgia rheumatic, CAD, history of CABG History of patent foramen ovale Right carotid endarterectomy, history of Hypertension Hyperlipidemia Diabetes mellitus type 2 History of CVA COPD Ongoing tobacco dependence, smokes cigars Aortic aneurysm repair 2016 Plan: Continue on current medication regime ,monitoring and symptomatic treatment. Echo ordered Labs pending. Orthostatic vital signs every shift. Cardiology, pulmonary consult in place, recommendations pending. Low dose of Lantus, close monitoring of blood sugars. PT/OT consulted. The impression and plan of care has been dictated as directed. : I performed a history and examination of this patient, discussed the same with the dictator. I agree with the dictator's note ,documented as a scribe. Any additional findings or plans will be noted.
[2023-03-11 16:46] LABS: Glucose,Whole Blood 183 mg/dL (70-110)
[2023-03-11] MEDS: INSULIN DETEMIR (LEVEMIR) 100 UNIT/ML SYR SQ SCH (16:51)
--- NOTE | 2023-03-11 18:11 | P.CONS ---
History of Present Illness - Reason for Consult Consult date: 03/11/23 anemia Requesting physician: Jorgito Kaiser - Chief Complaint weakness, falls, dizziness - History of Present Illness Patient is an 82-year-old male, with multiple medical problems. We were consulted for anemia. He is a patient of Dr. Hammer. Patient was referred to our clinic for anemia. He was noted to have hemoglobin in the 12-14 range and was started on oral iron at that time by his PCP. The patient had a positive cologard which he had a colonoscopy on 10/26/22 revealing moderate left-sided diverticulosis and small internal hemorrhoids with no other abnormality. The patient has a known history of polymyalgia rheumatica, and follows with rheumatology. The pt had additional lab workup in clinic, M-spike negative, immunofixation showed no monoclonal paraproteinemia, K/L ratio normal. No nutritional deficiency anemias noted. PSA and inflammatory markers also negative. CXR was negative. His hgb in the office was noted to be back in the normal range at 13-14 while on steroids from his log check scaler. Thus drop in Hgb due to inflammation, with improvement due to steroids appears to be a major differential. Pt was instructed to discontinue iron and planned for continued outpatient observation of CBC and iron studies. Patient presented to the emergency room for progressing generalized weakness, dizziness and falls. Daughter states he has been in seeing these symptoms for over a year with a decrease in appetite and 10 lb weight loss. 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 Daughter states since Tuesday patient has been having worsening symptoms of weakness and dizziness and is having difficulty ambulating for which she brought him to the ER for further evaluation. Patient denies chest pain, cough, fever and chills. Denies any episodes of bleeding or dark stools. Chest x-ray reviewed revealed no acute cardiopulmonary processes. CT head revealed no acute intracranial processes. Remote right coronal radiata injury and generalized cerebral atrophy. Urinalysis negative for infection. Troponins negative. Cardiology and neurology have been consulted. Hemoglobin 12.2, WBC 3.7, platelets 126,000. CBC consistent with mild normocytic normochromic anemia. Review of Systems 10 point ROS is negative except as stated in the HPI Past Medical History Past Medical History: Chest Pain / Angina, Heart Failure, COPD, Diabetes Mellitus, Hyperlipidemia, Hypertension, Myocardial Infarction ([place]) Additional Past Medical History / Comment(s): polymyalgia rheumatica, left eye damaged 1998-pupil is misshaped and does not dilate, PFO-current Last Myocardial Infarction Date:: 2015 History of Any Multi-Drug Resistant Organisms: None Reported Past Surgical History: Coronary Bypass/CABG, Orthopedic Surgery Additional Past Surgical History / Comment(s): LEFT EYE SURGERY, LEFT KNEE SURGERY, triple A repair [facility], right eye cataract removed 2014, 5 vessel CABG, RIGHT CAROTID AT [facility], ROMY CARP TUNNEL RELEASE Past Anesthesia/Blood Transfusion Reactions: No Reported Reaction Past Psychological History: No Psychological Hx Reported Smoking Status: Current every day smoker Past Alcohol Use History: Rare Past Drug Use History: None Reported - Past Family History Father Family Medical History: CVA/TIA Additional Family Medical History / Comment(s): Father has history of several CVAs. No [place] in the past. Mother Family Medical History: Diabetes Mellitus Additional Family Medical History / Comment(s): Mother has history of diabetes. Family denies stroke, [place], cancer. Brother(s) Family Medical History: Diabetes Mellitus, Myocardial Infarction ([place]) Additional Family Medical History / Comment(s): Adult children with no major medical problems. Medications and Allergies Home Medications Medication Instructions Recorded Confirmed Type Clopidogrel [Plavix] 75 mg PO DAILY #90 tab 08/10/16 03/10/23 Rx predniSONE 2.5 mg PO SUTUTHSA 02/25/17 03/10/23 History Atorvastatin [Lipitor] 80 mg PO HS 10/22/22 03/10/23 History Cholecalciferol [Vitamin D3 (25 25 mcg PO DAILY 10/22/22 03/10/23 History Mcg = 1000 Iu)] Glucos Sul 2Kcl/MSM/Chond/C/Mn 1 cap PO DAILY 10/22/22 03/10/23 History [Glucosamine Chondroitin Cap] Meloxicam [Mobic] 7.5 mg PO BID 10/22/22 03/10/23 History Mv-Mn/Om3/Dha/Epa/Fish/Lut/Erica 1 cap PO DAILY 10/22/22 03/10/23 History [Ocuvite Adult 50 Plus Softgel] Ubidecarenone [Co Q-10] 400 mg PO DAILY 10/22/22 03/10/23 History glipiZIDE XL [Glucotrol XL] 5 mg PO DAILY 10/22/22 03/10/23 History lisinopriL [Zestril] 10 mg PO BID 10/22/22 03/10/23 History Aspirin EC [Ecotrin Low Dose] 81 mg PO DAILY 03/10/23 03/10/23 History Multi-Collagen 2 tab PO HS 03/10/23 03/10/23 History Multivit-Min/FA/Lycopen/Lutein 1 tab PO DAILY 03/10/23 03/10/23 History [Centrum Silver Men Tablet] Vitamin B Complex 1 cap PO DAILY 03/10/23 03/10/23 History Allergies Allergy/AdvReac Type Severity Reaction Status Date / Time Penicillins Allergy Unknown Verified 03/10/23 20:20 Physical Exam Vitals: Vital Signs Temp Pulse Resp BP Pulse Ox 03/11/23 08:13 64 16 134/77 99 03/11/23 07:51 97 03/11/23 06:47 72 16 145/82 97 03/11/23 05:41 69 18 110/73 94 L 03/11/23 04:09 73 12 134/58 98 03/11/23 02:44 87 17 140/90 97 03/11/23 01:59 94 17 128/75 97 03/11/23 01:05 74 03/11/23 00:51 67 03/10/23 21:31 65 16 162/72 97 03/10/23 20:12 62 15 114/61 98 03/10/23 18:58 98.0 F 66 20 127/84 97 Intake and Output 03/10/23 03/11/23 03/11/23 22:59 06:59 14:59 Other: Weight 54.885 kg - Constitutional General appearance: average body habitus, no acute distress - EENT Eyes: anicteric sclerae ENT: hearing grossly normal - Respiratory breathing is even and unlabored - Cardiovascular skin warm and dry - Gastrointestinal General gastrointestinal: soft, no tenderness - Integumentary Integumentary: no cyanotic, no rash - Neurologic Neurologic: CNII-XII intact - Musculoskeletal Musculoskeletal: generalized weakness - Psychiatric Psychiatric: A&O x's 3, appropriate affect, intact judgment & insight Results CBC & Chem 7: 03/11/23 06:06 03/11/23 06:06 Labs: Abnormal Lab Results - Last 24 Hours (Table) 03/10/23 03/10/23 03/11/23 Range/Units 20:12 20:12 06:06 WBC 3.7 L (3.8-10.6) k/uL RBC 3.98 L 3.86 L (4.30-5.90) m/uL Hgb 12.9 L 12.2 L (13.0-17.5) gm/dL Hct 37.4 L 36.4 L (39.0-53.0) % Plt Count 138 L 126 L (150-450) k/uL Lymphocytes # 0.4 L (1.0-4.8) k/uL ABG pO2 (83-108) mmHg Chloride (98-107) mmol/L Carbon Dioxide (22-30) mmol/L BUN 31 H (9-20) mg/dL Creatinine 0.54 L (0.66-1.25) mg/dL Glucose 112 H (74-99) mg/dL Total Protein 6.2 L (6.3-8.2) g/dL 03/11/23 03/11/23 Range/Units 06:06 10:19 WBC (3.8-10.6) k/uL RBC (4.30-5.90) m/uL Hgb (13.0-17.5) gm/dL Hct (39.0-53.0) % Plt Count (150-450) k/uL Lymphocytes # (1.0-4.8) k/uL ABG pO2 78 L (83-108) mmHg Chloride 110 H (98-107) mmol/L Carbon Dioxide 21 L (22-30) mmol/L BUN 22 H (9-20) mg/dL Creatinine 0.47 L (0.66-1.25) mg/dL Glucose 218 H (74-99) mg/dL Total Protein 6.0 L (6.3-8.2) g/dL Chest x-ray: report reviewed CT Scan - head: report reviewed Assessment and Plan (1) Anemia Current Visit: Yes Status: Acute Priority: Medium Code(s): D64.9 - ANEMIA, UNSPECIFIED SNOMED Code(s): 187164889 Plan: Anemia: -Patient has history of mild anemia in the past. He has been worked up in our clinic earlier this year. Additional lab workup in clinic revealed negative M- spike, immunofixation showed no monoclonal paraproteinemia, K/L ratio normal. No nutritional deficiency anemias noted. PSA and inflammatory markers also negative. His hgb in the office was noted to be back in the normal range at 13- 14 while on steroids from his log check scaler. Thus drop in Hgb due to inflammation, with improvement due to steroids appears to be a major differential. -Hemoglobin stable, 12.2 -Will repeat iron studies/ferritin, ESR, and hemolysis workup -Continue to monitor counts -Will schedule f/u in the clinic upon discharge Dizziness/falls: -Cardiology and neurology following -CT head revealed no acute intracranial processes. Remote right coronal radiata injury and generalized cerebral atrophy. -Troponins negative. Echo ordered attests: I have performed H&P and developed impression and plan of care for patient, discussed with dictator. I agree with dictated note, documented as a s cribe
[2023-03-11 18:16] LABS: Reticulocyte % 1.9 % (0.5-2.0)
[2023-03-11 20:23] LABS: Erythrocyte Sedimentation Rate 10 mm/hr (0-15)
[2023-03-11 20:55] LABS: Glucose,Whole Blood 166 mg/dL (70-110)
[2023-03-11] MEDS: ATORVASTATIN 80 MG TAB PO SCH (21:43)
[2023-03-12 02:40] LABS: % Iron Saturation 20.91 (15.00-50.00)
[2023-03-12] MEDS: SODIUM CHLORIDE 0.9% 1,000 ML IV SCH ×2 (03:03→15:36)
--- NOTE | 2023-03-12 03:20 | P.CNNES ---
History of Present Illness Consult date: 03/11/23 Requesting physician: Jorgito Kaiser Reason for Consult: Falls History of Present Illness: Patient is a 82-year-old male with history of diabetes, hypertension, coronary artery disease, came to the hospital yesterday at 6:43 PM for worsening balance for last 2 months. Patient's son was also present, who also provided with a history. Patient has been losing balance, falling down, has fell about 4 times in these couple months. He either lose his balance, or trips over on something on the floor. Patient states that one time he was patting his cat, got up to stand up and just lost balance and fell. Patient does have a cane and a walker, but he does not use it. Patient denies any strokelike symptoms. Patient states his memory is fine. Patient does sometimes is forgetful, but consistent with his age. 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 He denies any problem with control of bowels or bladder, any urinary issues or incontinence. Patient had undergone angiogram on 03/07/2023 at [facility]. After that his symptoms have got worse. He is more dizzy, lightheaded, short of breath, weak with no appetite, has lost more weight. He is losing balance. Per patient's daughter's report, patient's right leg is about 90+ percent blocked surgery is being scheduled. Patient's daughter has noticed that he feels "off", not himself, confused at times, discombobulated. He is pale at times. Sugars are running high. Patient's daughter has mentioned that he has not been feeling well for over a year particularly since December 2021. Vital signs arrival blood pressure 127/84 pulse rate 66 temperature 98.0. Blood test shows normal WBC, hemoglobin 12.9, platelets 138. PT/PTT normal, electrolytes are normal, renal functions normal, hepatic panel, troponin normal. UA negative. EKG shows sinus rhythm. Chest x-ray with no acute cardiopulmonary diseaseprocess. CT head revealed no acute intracranial process. Remote right hsu radiata injury. New from 2020. On my review, there is moderate generalized atrophy, but also somewhat prominence of the ventricular system raising slight concern about NPH. Visualized paranasal sinuses, and external auditory canals are clear. Patient has history of diabetes for 10 years, which is controlled. Patient had undergone 5 vessel bypass surgery. He has history of HI in 2016. Patient suffered from a stroke in 2018. He had abdominal aortic aneurysm repair 2016. Carpal tunnel surgery both hands 2021. He had right CEA in August 2022. He had a PFO, has not undergone closure. Patient smokes 5 cigars (cigrello) per day. He quit tobacco 15 years ago. He drinks alcohol very rarely, none for last 3-4 months. Home medications include Plavix 75 mg, aspirin 81 mg, prednisone 2.5 mg 4 times a week, vitamin D, meloxicam, co-Q10, glipizide 5 mg daily, Lipitor 80 mg, lisinopril 10 mg twice a day, multivitamin. 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 Short segment stenosis of the carotid bulb of 40% on the right and 50% on the left. Patient's MRI of the brain from 06/12/2018 showed small foci of subacute ischemic infarction in the left parietal lobe. I personally reviewed that MRI agree with the findings. Review of Systems Constitutional: Denies chills, Denies fever Eyes: left loss of vision, denies blurred vision, denies diplopia, denies pain Ears: deny: decreased hearing, ear discharge Ears, nose, mouth and throat: Denies headache, Denies sore throat Cardiovascular: Denies chest pain, Denies shortness of breath Respiratory: Denies cough, Denies excessive sputum Gastrointestinal: Denies abdominal pain, Denies diarrhea, Denies nausea, Denies vomiting Musculoskeletal: Reports frequent falls, Reports gait dysfunction, Reports muscle weakness, Denies low back pain, Denies neck pain Integumentary: Denies pruritus, Denies rash Neurological: Reports as per HPI Psychiatric: Denies anxiety, Denies depression, Denies hallucinations, Denies memory loss Endocrine: Denies fatigue, Denies weight change Past Medical History Past Medical History: Chest Pain / Angina, Heart Failure, COPD, Diabetes Mellitus, Hyperlipidemia, Hypertension, Myocardial Infarction (HI) Additional Past Medical History / Comment(s): polymyalgia rheumatica, left eye damaged 1998-pupil is misshaped and does not dilate, PFO-current Last Myocardial Infarction Date:: 2015 History of Any Multi-Drug Resistant Organisms: None Reported Past Surgical History: Coronary Bypass/CABG, Orthopedic Surgery Additional Past Surgical History / Comment(s): LEFT EYE SURGERY, LEFT KNEE SURGERY, triple A repair [facility], right eye cataract removed 2015, 5 vessel CABG, RIGHT CAROTID AT [facility], ROMY CARP TUNNEL RELEASE Past Anesthesia/Blood Transfusion Reactions: No Reported Reaction Past Psychological History: No Psychological Hx Reported Smoking Status: Current every day smoker Past Alcohol Use History: Rare Past Drug Use History: None Reported - Past Family History Father Family Medical History: CVA/TIA Additional Family Medical History / Comment(s): Father has history of several CVAs. No HI in the past. Mother Family Medical History: Diabetes Mellitus Additional Family Medical History / Comment(s): Mother has history of diabetes. Family denies stroke, HI, cancer. Brother(s) Family Medical History: Diabetes Mellitus, Myocardial Infarction (HI) Additional Family Medical History / Comment(s): Adult children with no major medical problems. Medications and Allergies Home Medications Medication Instructions Recorded Confirmed Type Clopidogrel [Plavix] 75 mg PO DAILY #90 tab 08/10/16 03/10/23 Rx predniSONE 2.5 mg PO SUTUTHSA 02/25/17 03/10/23 History Atorvastatin [Lipitor] 80 mg PO HS 10/22/22 03/10/23 History Cholecalciferol [Vitamin D3 (25 25 mcg PO DAILY 10/22/22 03/10/23 History Mcg = 1000 Iu)] Glucos Sul 2Kcl/MSM/Chond/C/Mn 1 cap PO DAILY 10/22/22 03/10/23 History [Glucosamine Chondroitin Cap] Meloxicam [Mobic] 7.5 mg PO BID 10/22/22 03/10/23 History Mv-Mn/Om3/Dha/Epa/Fish/Lut/Erica 1 cap PO DAILY 10/22/22 03/10/23 History [Ocuvite Adult 50 Plus Softgel] Ubidecarenone [Co Q-10] 400 mg PO DAILY 10/22/22 03/10/23 History glipiZIDE XL [Glucotrol XL] 5 mg PO DAILY 10/22/22 03/10/23 History lisinopriL [Zestril] 10 mg PO BID 10/22/22 03/10/23 History Aspirin EC [Ecotrin Low Dose] 81 mg PO DAILY 03/10/23 03/10/23 History Multi-Collagen 2 tab PO HS 03/10/23 03/10/23 History Multivit-Min/FA/Lycopen/Lutein 1 tab PO DAILY 03/10/23 03/10/23 History [Centrum Silver Men Tablet] Vitamin B Complex 1 cap PO DAILY 03/10/23 03/10/23 History Allergies Allergy/AdvReac Type Severity Reaction Status Date / Time Penicillins Allergy Unknown Verified 03/10/23 20:20 Physical Examination - Vital Signs Vital Signs: Vital Signs Temp Pulse Resp BP Pulse Ox 03/11/23 08:13 64 16 134/77 99 03/11/23 07:51 97 03/11/23 06:47 72 16 145/82 97 03/11/23 05:41 69 18 110/73 94 L 03/11/23 04:09 73 12 134/58 98 03/11/23 02:44 87 17 140/90 97 03/11/23 01:59 94 17 128/75 97 03/11/23 01:05 74 03/11/23 00:51 67 03/10/23 21:31 65 16 162/72 97 03/10/23 20:12 62 15 114/61 98 03/10/23 18:58 98.0 F 66 20 127/84 97 Intake and Output 03/10/23 03/11/23 03/11/23 22:59 06:59 14:59 Other: Weight 54.885 kg Patient is an elderly male, very pleasant, in no acute distress. Patient is alert awake oriented to time place and person. Speech and language functions are normal. Patient can name and repeat very well. No aphasia or dysarthria. Attention, concentration and fund of knowledge is adequate. On cranial nerve examination, patient is blind in the left eye and the pupil is irregular because of a wire went inside his left eye. He had retinal detachment. He can only see some hand movement and light the left eye. His right eye is fine. The right pupil is round and reacting. His visual bolanos are full on confrontation, with no neglect on double simultaneous stimulation. Extraocular muscles are intact with no nystagmus. Patient has mild left facial asymmetry. His tongue protrudes to the midline. Palatal elevation and sensation normal, hearing and shoulder shrug normal, facial sensation normal. On muscle strength testing, patient has history of bilateral rotator cuff tear, left more than right, therefore both are weak, left worse. The strength in the biceps, triceps and music grapher are normal. The strength is normal in bilateral lower limbs distally and proximally. Deep tendon reflexes are symmetric 3 at the biceps, 3 brachioradialis, 3 at the knees, 2 ankles and plantars are upgoing bilaterally. Sensory to touch is equal with no neglect on double simultaneous stimulation. Cerebellar function showed no ataxia for [id number] testing. No dysdiadochokinesia. Patient has mild ataxia for [id number] testing on the left side. Tone and bulk of muscles normal. Gait: Patient was able to get up from the bed without difficulty. He walks with slight wide base. He appears quite steady walking and turned around fairly normally. No parkinsonian features. No bradykinesia. On general examination, there is no carotid bruit or murmur, S1-S2 audible. Chest is clear on consultation. Abdomen is soft nontender. No organomegaly, bowel sounds present. Peripheral pulses are present. No edema. Results - Laboratory Findings CBC and BMP: 03/11/23 06:06 03/11/23 06:06 Abnormal Lab Findings: Abnormal Labs 03/10/23 03/10/23 03/11/23 20:12 20:12 06:06 WBC 3.7 L RBC 3.98 L 3.86 L Hgb 12.9 L 12.2 L Hct 37.4 L 36.4 L Plt Count 138 L 126 L Lymphocytes # 0.4 L Chloride Carbon Dioxide BUN 31 H Creatinine 0.54 L Glucose 112 H Total Protein 6.2 L 03/11/23 06:06 WBC RBC Hgb Hct Plt Count Lymphocytes # Chloride 110 H Carbon Dioxide 21 L BUN 22 H Creatinine 0.47 L Glucose 218 H Total Protein 6.0 L Assessment and Plan Assessment: * Gait imbalance, tendency to fall for last 2 months. Patient has fell about 4 times, mainly due to losing balance. No syncopal symptoms or passing out. * Mildly abnormal CT head, with prominence of the ventricles, suggestive of possible NPH. Patient does have gait imbalance but denies any memory loss, or problems with control of urine. 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 Patient does have brisk reflexes, and bilateral Babinski. * B12, folate and TSH * Patient recommended to start using either a 4 pronged cane or preferable a walker to prevent falls. * Continue aspirin 81 mg, Plavix and Lipitor 80 mg daily. * Dr. Scott Nye to cover neurology service over the weekend. Thank you for the consult. Time with Patient: Greater than 30
[2023-03-12 05:47] LABS: Glucose,Whole Blood 109 mg/dL (70-110)
[2023-03-12] MEDS: INSULIN ASPART (NovoLOG) 100 UNIT/ML VIAL SQ SCH ×4 (05:48→20:58)
[2023-03-12 06:33] LABS: Basophils % (A) 0 %; Eosinophils # (A) 0.1 k/uL (0-0.7); Eosinophils % (A) 1 %; HCT 34.3 % (39.0-53.0); HGB 11.7 gm/dL (13.0-17.5); Lymphocytes # (A) 1.8 k/uL (1.0-4.8); Lymphocytes % (A) 28 %; MCH 32.2 pg (25.0-35.0); MCHC 34.2 g/dL (31.0-37.0); MCV 94.1 fL (80.0-100.0); Mean Platelet Volume 10.1; Monocytes # (A) 0.4 k/uL (0-1.0); Monocytes % (A) 6 %; Neutrophils % (A) 63 %; Platelet Count 132 k/uL (150-450); RBC 3.65 m/uL (4.30-5.90); RDW 13.8 % (11.5-15.5); WBC 6.3 k/uL (3.8-10.6)
[2023-03-12 07:10] LABS: African American GFR (CKD) >90 (>60 ml/min/1.73 sqM); Anion Gap 6 mmol/L; Blood Urea Nitrogen 17 mg/dL (9-20); Calcium 8.6 mg/dL (8.4-10.2); Carbon Dioxide 25 mmol/L (22-30); Chloride 110 mmol/L (98-107); Glucose 105 mg/dL (74-99); Magnesium 1.8 mg/dL (1.6-2.3); Non-African American GFR(CKD) >90 (>60 ml/min/1.73 sqM); Sodium 141 mmol/L (137-145)
[2023-03-12] MEDS: INSULIN DETEMIR (LEVEMIR) 100 UNIT/ML SYR SQ SCH (08:27)
[2023-03-12] MEDS: CLOPIDOGREL 75 MG TAB PO SCH (08:27)
[2023-03-12] MEDS: ASPIRIN 81 MG PO SCH (08:28)
[2023-03-12] MEDS: PANTOPRAZOLE 40 MG/10 ML VIAL IVP SCH (08:28)
--- NOTE | 2023-03-12 10:35 | US ---
EXAMINATION TYPE: US carotid duplex BILAT DATE OF EXAM: 03/12/2023 COMPARISON: NONE CLINICAL INDICATION: Male, 82 years old with history of Falls, dizziness, hx of stenosis; dizziness h ad stent put in on right side. TECHNIQUE: Carotid duplex ultrasound examination. Indirect Doppler criteria was utilized. FINDINGS: EXAM MEASUREMENTS: RIGHT: Peak Systolic Velocity (PSV) cm/sec ----- Right CCA: 83.2 ----- Right ICA: 98.1 ----- Right ECA: 131 ICA/CCA ratio: 1.2 RIGHT: End Diastole cm/sec ----- Right CCA: 15.6 ----- Right ICA: 8.4 ----- Right ECA: 0 LEFT: Peak Systolic Velocity (PSV) cm/sec ----- Left CCA: 78.8 ----- Left ICA: 159 ----- Left ECA: 150 ICA/CCA ratio: 2.0 LEFT: End Diastole cm/sec ----- Left CCA: 21.7 ----- Left ICA: 29 ----- Left ECA: 7.25 VERTEBRALS (direction of flow): Right Vertebral: Antegrade Left Vertebral: Antegrade Rhythm: Normal Rhodes scale images show moderate atherosclerotic change of the bifurcations. IMPRESSION: 1. Increased measurements at the left ICA may be secondary to turbulence or a moderate left ICA steno sis. Criteria for Assigning % of Stenosis / Diameter reduction (Estimation based on the indirect measurements of the internal carotid artery velocities (ICA PSV). 1. Normal (no stenosis)=ICA PSV < 125 cm/s: ratio < 2.0: ICA EDV<40 cm/s. 2. Less than 50% stenosis=ICA PSV < 125 cm/s: ratio < 2.0: ICA EDV<40 cm/s. 3. 50 to 69% stenosis=ICA PSV of 125 to 230 cm/s: ration 2.0 ? 4.0: ICA EDV 40-100 cm/s. 4. Greater than 70% stenosis to near occlusion= ICA PSV > 230 cm/s: ratio > 4.0: ICA EDV > 100 cm/s. 5. Near occlusion= ICA PSV velocities may be low or undetectable: variable ratio and ICA EDV. 6. Total occlusion=unable to detect flow.
--- NOTE | 2023-03-12 10:51 | P.PN ---
Subjective HISTORY OF PRESENT ILLNESS: This is a 82-year-old male with a past medical history significant for hypertension, hyperlipidemia, peripheral vascular disease, nicotine dependence, coronary artery disease with previous four-vessel CABG in 2016 (LIMALAD, VGD1, VGOM1, VGRCA), and AAA repair in 2017. Patient follows in the office with Dr. Ruiz. We have been asked to see the patient in consultation for weakness. Patient examined at the bedside. The patient underwent lower extremity angiogram at [facility] on Tuesday with Dr. Henriquez. Per patient, he was found to have a 90% blockage in his right lower extremity and is scheduled to have intervention in the near future. The patient states he has been feeling dizzy and lightheaded at home. The family member at the bedside states his oxygen levels have been running low. He reports feeling weak and having multiple falls at home since having the procedure performed. He apparently has also been losing weight and does not have much of an appetite. He denied any chest pain or pressure. Denied any shortness of breath. He denied having any palpitations. * EKG reveals sinus mechanism with no signs of acute ischemia * Chest xray negative for acute process * CT brain: No acute intracranial process. Remote right cornea radiata injury. new from 2020 * Laboratory data: WBC 3.7. Hemoglobin 12.2. Platelet count 126. Sodium 140. Potassium 4.2. BUN 22. Creatinine 0.47. Troponin negative 3. * Current home cardiac medications include aspirin 81 mg daily, Lipitor 80 mg at night, lisinopril 10 mg twice a day, Plavix 75 mg daily * Most recent echocardiogram obtained in November 2022 revealed normal ejection fraction, mild MR, moderate TR, moderate AR * Patient underwent VAUGHN and June 2018 revealing normal left ventricular size and systolic function, normal appearance left atrial appendage, mild mitral, tricuspid, and aortic regurgitation, evidence of shunting across the patent foramen ovale with [id number] shunting with Valsalva maneuver and highly mobile intra-atrial septum, mild atherosclerotic changes of descending thoracic aorta, no evidence of pericardial effusion. 06/12 Patient was having somewhat borderline blood pressures in the 110 range and therefore his lisinopril has been held. Echocardiogram repeated which shows normal left ventricular function with mild aortic stenosis. He states he is feeling back to his normal self. Denies any further lightheaded episodes. CTA showed no pulmonary embolism and no acute cardiopulmonary process. PHYSICAL EXAM: VITAL SIGNS: Reviewed. GENERAL: Well-developed in no acute distress. HEENT: Head is normocephalic. Pupils are equal, round. Sclerae anicteric. Mucous membranes of the mouth are moist. Neck supple. No JVD or thyromegaly LUNGS: Respirations even and unlabored. Lungs essentially clear to auscultation bilaterally. HEART: Regular rate and rhythm. S1 and S2 heard. Systolic murmur noted. ABDOMEN: Soft. Nondistended. Nontender. EXTREMITIES: Normal range of motion. No clubbing or cyanosis. Peripheral pulses intact. No lower extremity edema NEUROLOGIC: Awake and alert. Oriented x 3. ASSESSMENT: Generalized weakness with frequent falls at home Dizziness and lightheadedness Decreased appetite with weight loss Recent lower extremity angiogram revealing 90% blockage of right lower ex tremity, per patient Coronary artery disease with previous four-vessel CABG in 2016 History of AAA repair, 2017 Peripheral vascular disease PFO, per VAUGHN in 2018 History of TIA Hypertension Hyperlipidemia Ongoing nicotine dependence PLAN: Echocardiogram shows preserved EF without significant valvular disease and CT shows no pulmonary embolism. Lightheadedness may be related to over medicated with antihypertensive medications and lisinopril has been held however blood pressure up into the 170s this morning. We will add back lisinopril 5 mg daily. Patient cleared for discharge from a cardiology standpoint. Follow-up in office in 1-2 weeks. Objective - Vital Signs Vital signs: Vital Signs Temp 97.5 F L 03/12/23 07:00 Pulse 61 03/12/23 07:00 Resp 14 03/12/23 07:00 BP 179/79 03/12/23 07:00 Pulse Ox 98 03/12/23 07:00 FiO2 Intake & Output 03/11/23 03/12/23 03/12/23 18:59 06:59 18:59 Intake Total 240 Balance 240 Weight 54.885 kg Intake: Oral 240 Other: Voiding Method Toilet # Voids 1 - Labs CBC & Chem 7: 03/12/23 05:39 03/12/23 05:39 Labs: Abnormal Lab Results - Last 24 Hours (Table) 03/11/23 03/11/23 03/11/23 Range/Units 06:06 11:43 11:46 RBC (4.30-5.90) m/uL Hgb (13.0-17.5) gm/dL Hct (39.0-53.0) % Plt Count (150-450) k/uL D-Dimer 3.37 H (<0.60) mg/L FEU Chloride (98-107) mmol/L Creatinine (0.66-1.25) mg/dL Glucose (74-99) mg/dL POC Glucose (mg/dL) 190 H (70-110) mg/dL Iron 60 L (65-175) UG/DL 03/11/23 03/11/23 03/12/23 Range/Units 16:44 20:42 05:39 RBC (4.30-5.90) m/uL Hgb (13.0-17.5) gm/dL Hct (39.0-53.0) % Plt Count (150-450) k/uL D-Dimer (<0.60) mg/L FEU Chloride 110 H (98-107) mmol/L Creatinine 0.49 L (0.66-1.25) mg/dL Glucose 105 H (74-99) mg/dL POC Glucose (mg/dL) 183 H 166 H (70-110) mg/dL Iron (65-175) UG/DL 03/12/23 Range/Units 05:39 RBC 3.65 L (4.30-5.90) m/uL Hgb 11.7 L (13.0-17.5) gm/dL Hct 34.3 L (39.0-53.0) % Plt Count 132 L (150-450) k/uL D-Dimer (<0.60) mg/L FEU Chloride (98-107) mmol/L Creatinine (0.66-1.25) mg/dL Glucose (74-99) mg/dL POC Glucose (mg/dL) (70-110) mg/dL Iron (65-175) UG/DL
--- NOTE | 2023-03-12 11:50 | P.PN ---
Subjective Progress Note Date: 03/12/23 I am seeing the patient for the first time during this hospital visit. Please refer to Dr. Sexton's note for further details. It seems the patient having falls and gait imbalance. Objective - Vital Signs Vital signs: Vital Signs Temp 97.5 F L 03/12/23 07:00 Pulse 61 03/12/23 07:00 Resp 14 03/12/23 07:00 BP 179/79 03/12/23 07:00 Pulse Ox 98 03/12/23 07:00 FiO2 Intake & Output 03/11/23 03/12/23 03/12/23 18:59 06:59 18:59 Intake Total 240 Balance 240 Weight 54.885 kg Intake: Oral 240 Other: Voiding Method Toilet # Voids 1 - Exam Patient is sitting in a recliner chair and does not appear in acute distress. Neuro: Alert, oriented X3. Is following commands. No aphasia. No facial weakness. No dysarthia. Motor: Strength is left hand assistant scientist is 4+ but otherwise 5/5 throughout. Sensory: Normal to touch throughout. Cerebellar is missing target with finger to nose on left but feel due to weakness. But normal on the right. Reflex: Right brachioradialis otherwise 2+ throughout. - Labs CBC & Chem 7: 03/12/23 05:39 03/12/23 05:39 Labs: Abnormal Lab Results - Last 24 Hours (Table) 03/11/23 03/11/23 03/11/23 Range/Units 06:06 11:43 11:46 RBC (4.30-5.90) m/uL Hgb (13.0-17.5) gm/dL Hct (39.0-53.0) % Plt Count (150-450) k/uL D-Dimer 3.37 H (<0.60) mg/L FEU Chloride (98-107) mmol/L Creatinine (0.66-1.25) mg/dL Glucose (74-99) mg/dL POC Glucose (mg/dL) 190 H (70-110) mg/dL Iron 60 L (65-175) UG/DL 03/11/23 03/11/23 03/12/23 Range/Units 16:44 20:42 05:39 RBC (4.30-5.90) m/uL Hgb (13.0-17.5) gm/dL Hct (39.0-53.0) % Plt Count (150-450) k/uL D-Dimer (<0.60) mg/L FEU Chloride 110 H (98-107) mmol/L Creatinine 0.49 L (0.66-1.25) mg/dL Glucose 105 H (74-99) mg/dL POC Glucose (mg/dL) 183 H 166 H (70-110) mg/dL Iron (65-175) UG/DL 03/12/23 Range/Units 05:39 RBC 3.65 L (4.30-5.90) m/uL Hgb 11.7 L (13.0-17.5) gm/dL Hct 34.3 L (39.0-53.0) % Plt Count 132 L (150-450) k/uL D-Dimer (<0.60) mg/L FEU Chloride (98-107) mmol/L Creatinine (0.66-1.25) mg/dL Glucose (74-99) mg/dL POC Glucose (mg/dL) (70-110) mg/dL Iron (65-175) UG/DL Assessment and Plan Assessment: * Gait imbalance, tendency to fall for last 2 months. Patient has fell about 4 times, mainly due to losing balance. No syncopal symptoms or passing out. On examination felt he had some weakness over the left hand Rule out subacute CVA and was brisk over the right brachioradilais: Rule out cervical myelopathy. * Mildly abnormal CT head, with prominence of the ventricles, suggestive of possible NPH. Patient does have gait imbalance but denies any memory loss, or problems with control of urine. 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 I ordered MRA neck. * Per Dr. Sexton, MRI of the brain to rule out subacute CVA, rule out hydrocephalus/NPH and MRI of the cervical spine, rule out spinal stenosis. Patient does have brisk reflexes, and bilateral Babinski. * B12: 802, folate 24.3 and TSH 0.631 all within normal limits. * Patient recommended to start using either a 4 pronged cane or preferable a walker to prevent falls. * Per Dr. Sexton continue aspirin 81 mg, Plavix and Lipitor 80 mg daily. The plan is discussed with her nurse. Time with Patient: Less than 30
[2023-03-12] MEDS: lisinopriL 5 MG TAB PO SCH (12:06)
[2023-03-12 12:17] LABS: Glucose,Whole Blood 180 mg/dL (70-110)
[2023-03-12 17:16] LABS: Glucose,Whole Blood 142 mg/dL (70-110)
[2023-03-12 20:06] LABS: Glucose,Whole Blood 144 mg/dL (70-110)
[2023-03-12] MEDS: ATORVASTATIN 80 MG TAB PO SCH (21:05)
[2023-03-13 05:53] LABS: Glucose,Whole Blood 110 mg/dL (70-110)
[2023-03-13] MEDS: SODIUM CHLORIDE 0.9% 1,000 ML IV SCH ×2 (05:55→18:59)
[2023-03-13] MEDS: INSULIN ASPART (NovoLOG) 100 UNIT/ML VIAL SQ SCH ×4 (05:56→21:05)
[2023-03-13] MEDS: PANTOPRAZOLE 40 MG/10 ML VIAL IVP SCH (09:05)
[2023-03-13] MEDS: INSULIN DETEMIR (LEVEMIR) 100 UNIT/ML SYR SQ SCH (09:05)
[2023-03-13] MEDS: ASPIRIN 81 MG PO SCH (09:05)
[2023-03-13] MEDS: CLOPIDOGREL 75 MG TAB PO SCH (09:05)
[2023-03-13] MEDS: lisinopriL 5 MG TAB PO SCH (09:05)
[2023-03-13] MEDS ORDERED: lisinopriL 5 MG TAB PO STA (10:22)
--- NOTE | 2023-03-13 10:25 | P.PN ---
Subjective HISTORY OF PRESENT ILLNESS: This is a 82-year-old male with a past medical history significant for hypertension, hyperlipidemia, peripheral vascular disease, nicotine dependence, coronary artery disease with previous four-vessel CABG in 2016 (LIMALAD, VGD1, VGOM1, VGRCA), and AAA repair in 2017. Patient follows in the office with Dr. Ruiz. We have been asked to see the patient in consultation for weakness. Patient examined at the bedside. The patient underwent lower extremity angiogram at [facility] on Tuesday with Dr. Henriquez. Per patient, he was found to have a 90% blockage in his right lower extremity and is scheduled to have intervention in the near future. The patient states he has been feeling dizzy and lightheaded at home. The family member at the bedside states his oxygen levels have been running low. He reports feeling weak and having multiple falls at home since having the procedure performed. He apparently has also been losing weight and does not have much of an appetite. He denied any chest pain or pressure. Denied any shortness of breath. He denied having any palpitations. * EKG reveals sinus mechanism with no signs of acute ischemia * Chest xray negative for acute process * CT brain: No acute intracranial process. Remote right cornea radiata injury. new from 2020 * Laboratory data: WBC 3.7. Hemoglobin 12.2. Platelet count 126. Sodium 140. Potassium 4.2. BUN 22. Creatinine 0.47. Troponin negative 3. * Current home cardiac medications include aspirin 81 mg daily, Lipitor 80 mg at night, lisinopril 10 mg twice a day, Plavix 75 mg daily * Most recent echocardiogram obtained in November 2022 revealed normal ejection fraction, mild MR, moderate TR, moderate AR * Patient underwent VAUGHN and June 2018 revealing normal left ventricular size and systolic function, normal appearance left atrial appendage, mild mitral, tricuspid, and aortic regurgitation, evidence of shunting across the patent foramen ovale with [id number] shunting with Valsalva maneuver and highly mobile intra-atrial septum, mild atherosclerotic changes of descending thoracic aorta, no evidence of pericardial effusion. 06/12 Patient was having somewhat borderline blood pressures in the 110 range and therefore his lisinopril has been held. Echocardiogram repeated which shows normal left ventricular function with mild aortic stenosis. He states he is feeling back to his normal self. Denies any further lightheaded episodes. CTA showed no pulmonary embolism and no acute cardiopulmonary process. 06/13 Patient seen and examined. Blood pressure labile previous in the 120 range now currently in the 170 range. Lisinopril 5 mg daily was added back yesterday. Previously on 10 mg twice a day. Daughter concerned regarding elevated d-dimer. Discussed that multiple reasons for elevated d-dimer. Daughter however concern given recent procedure and risk of DVT. We will check lower extremity ultrasoun d for completeness sake. He denies any significant chest pain or shortness breath. Still occasionally gets lightheadedness when he stands up however fairly well controlled. PHYSICAL EXAM: VITAL SIGNS: Reviewed. GENERAL: Well-developed in no acute distress. HEENT: Head is normocephalic. Pupils are equal, round. Sclerae anicteric. Mucous membranes of the mouth are moist. Neck supple. No JVD or thyromegaly LUNGS: Respirations even and unlabored. Lungs essentially clear to auscultation bilaterally. HEART: Regular rate and rhythm. S1 and S2 heard. Systolic murmur noted. ABDOMEN: Soft. Nondistended. Nontender. EXTREMITIES: Normal range of motion. No clubbing or cyanosis. Peripheral pulses intact. No lower extremity edema NEUROLOGIC: Awake and alert. Oriented x 3. ASSESSMENT: Generalized weakness with frequent falls at home Dizziness and lightheadedness Decreased appetite with weight loss Recent lower extremity angiogram revealing 90% blockage of right lower extremity, per patient Coronary artery disease with previous four-vessel CABG in 2016 History of AAA repair, 2017 Peripheral vascular disease PFO, per VAUGHN in 2018 History of TIA Hypertension Hyperlipidemia Ongoing nicotine dependence PLAN: Echocardiogram shows preserved EF without significant valvular disease and CT s hows no pulmonary embolism. Headedness may be related to medications. Blood pressure however elevated and increase lisinopril back to 10 mg daily, previously on 10 mg twice a day. Elevated d-dimer and daughter significantly concern regarding DVT. Check lower extremity ultrasound for completeness sake. Patient cleared for discharge from a cardiology standpoint. Follow-up in office in 1-2 weeks. Objective - Vital Signs Vital signs: Vital Signs Temp 98.2 F 03/13/23 07:00 Pulse 64 03/13/23 07:00 Resp 14 03/13/23 07:00 BP 170/81 03/13/23 07:00 Pulse Ox 98 03/13/23 07:00 FiO2 Intake & Output 0603/13/23 03/13/23 18:59 06:59 18:59 Intake Total 358 240 Balance 358 240 Intake: Oral 358 240 Other: Voiding Method Toilet # Voids 2 1 - Labs CBC & Chem 7: 03/12/23 05:39 03/12/23 05:39 Labs: Abnormal Lab Results - Last 24 Hours (Table) 03/11/23 03/12/23 03/12/23 Range/Units 06:06 12:15 17:15 POC Glucose (mg/dL) 180 H 142 H (70-110) mg/dL Iron 60 L (65-175) UG/DL 03/12/23 Range/Units 20:04 POC Glucose (mg/dL) 144 H (70-110) mg/dL Iron (65-175) UG/DL
[2023-03-13 12:40] LABS: Glucose,Whole Blood 109 mg/dL (70-110)
--- NOTE | 2023-03-13 14:50 | US ---
EXAMINATION TYPE: US venous doppler duplex LE DATE OF EXAM: 03/13/2023 2:37 PM COMPARISON: NONE CLINICAL INDICATION: Male, 82 years old with history of re: elevated dimer; elevated d dimer on blood thinners. SIDE PERFORMED: Bilateral TECHNIQUE: The lower extremity deep venous system is examined utilizing real time linear array sonog janet with graded compression, doppler sonography and color-flow sonography. VESSELS IMAGED: Common Femoral Vein Deep Femoral Vein Greater Saphenous Vein * Femoral Vein Popliteal Vein Small Saphenous Vein * Proximal Calf Veins (* superficial vessels) Right Leg: Negative for DVT Left Leg: Negative for DVT IMPRESSION: No evidence for DVT within the bilateral lower extremities imaged from the groin to the upper calves.
[2023-03-13 15:44] LABS: Basophils % (A) 0 %; Eosinophils # (A) 0.1 k/uL (0-0.7); Eosinophils % (A) 2 %; HCT 40.5 % (39.0-53.0); HGB 13.2 gm/dL (13.0-17.5); Lymphocytes # (A) 1.2 k/uL (1.0-4.8); Lymphocytes % (A) 18 %; MCH 31.1 pg (25.0-35.0); MCHC 32.7 g/dL (31.0-37.0); MCV 95.1 fL (80.0-100.0); Mean Platelet Volume 10.2; Monocytes # (A) 0.5 k/uL (0-1.0); Monocytes % (A) 7 %; Neutrophils # (A) 4.6 k/uL (1.3-7.7); Neutrophils % (A) 72 %; Platelet Count 148 k/uL (150-450); RBC 4.25 m/uL (4.30-5.90); RDW 13.6 % (11.5-15.5); WBC 6.5 k/uL (3.8-10.6)
[2023-03-13 15:48] LABS: African American GFR (CKD) >90 (>60 ml/min/1.73 sqM); Albumin 3.8 g/dL (3.5-5.0); Anion Gap 9 mmol/L; Blood Urea Nitrogen 20 mg/dL (9-20); Carbon Dioxide 27 mmol/L (22-30); Chloride 101 mmol/L (98-107); Glucose 160 mg/dL (74-99); Non-African American GFR(CKD) >90 (>60 ml/min/1.73 sqM); Phosphorus 3.7 mg/dL (2.5-4.5); Potassium 4.6 mmol/L (3.5-5.1); Sodium 137 mmol/L (137-145)
[2023-03-13 17:36] LABS: Glucose,Whole Blood 131 mg/dL (70-110)
--- NOTE | 2023-03-13 17:45 | P.PN ---
Subjective Progress Note Date: 03/12/23 82-year-old gentleman with past medical history significant for hypertension, hyperlipidemia, CAD, CABG, polymyalgia rheumatica, ongoing nicotine dependence- smokes 2-5 cigars daily, CVA, TIA, PAD, recent Angio Tuesday03/07/23 at [facility], brought into the ER with complaints of multiple falls, losing balance, dizziness, lightheadedness and multiple other medical issues. Patient reports over the last 2 weeks he has been losing his balance and having multiple falls at home. He reports that yesterday ,he became dizzy, fell over backwards at home, attempted to catch himself, caught the side of the couch-Denies head trauma. Denies chest pain, palpitations or shortness of breath. Reports he is on Plavix and aspirin for groin stent. Chest x-ray reported non acute. Afebrile, WBC 3.7, hemoglobin 12.2, platelets 126, d-dimer pending, sodium 140, potassium 4.2, bicarb 21, BUN 22, creatinine 0.47, glucose 218 magnesium 1.7, LFTs within normal limits, troponins negative 3. VSS,Maintaining O2 sats in the 90s on room air. Objective - Vital Signs Vital signs: Vital Signs Temp 98.1 F 03/12/23 13:47 Pulse 62 03/12/23 13:47 Resp 14 03/12/23 13:47 BP 157/69 03/12/23 13:47 Pulse Ox 97 03/12/23 13:47 FiO2 Intake & Output 03/11/23 03/12/23 03/12/23 18:59 06:59 18:59 Intake Total 240 Balance 240 Weight 54.885 kg Intake: Oral 240 Other: Voiding Method Toilet # Voids 1 - Exam GENERAL: Sitting up on stretcher,NAD HEENT: Normocephalic ,Conjunctivae normal. eyes normal. NECK: Supple, No JVD. No thyroid enlargement. No LNs CARDIOVASCULAR: S1, S2 regular. Systolic murmur RESPIRATION: Breath sounds diminished in the bases. No rhonchi or crackles. No bronchial breathing. ABDOMEN: Soft, nondistended, nontender. No guarding. no masses palpable. No ascites, No hepatosplenomegaly.Bowel sounds heard. LEGS: No edema. no swelling PSYCHIATRY: Alert and oriented X3, mood and affect normal. NERVOUS SYSTEM: Cranial N 2-12 grossly normal.No focal deficits. Strength and sensation grossly intact.. Skin: Warm and dry , no fern - Labs CBC & Chem 7: 03/13/23 14:27 03/13/23 14:27 Labs: Abnormal Lab Results - Last 24 Hours (Table) 03/11/23 03/11/23 03/12/23 Range/Units 06:06 20:42 05:39 RBC (4.30-5.90) m/uL Hgb (13.0-17.5) gm/dL Hct (39.0-53.0) % Plt Count (150-450) k/uL Chloride 110 H (98-107) mmol/L Creatinine 0.49 L (0.66-1.25) mg/dL Glucose 105 H (74-99) mg/dL POC Glucose (mg/dL) 166 H (70-110) mg/dL Iron 60 L (65-175) UG/DL 03/12/23 03/12/23 03/12/23 Range/Units 05:39 12:15 17:15 RBC 3.65 L (4.30-5.90) m/uL Hgb 11.7 L (13.0-17.5) gm/dL Hct 34.3 L (39.0-53.0) % Plt Count 132 L (150-450) k/uL Chloride (98-107) mmol/L Creatinine (0.66-1.25) mg/dL Glucose (74-99) mg/dL POC Glucose (mg/dL) 180 H 142 H (70-110) mg/dL Iron (65-175) UG/DL Assessment and Plan Assessment: Multiple recent falls secondary to reported increased generalized weakness, di zziness, (shortness of breath, decrease appetite, intermittent episodes of confusion-per note left by daughter at bedside )workup in progress PAD, recent Angio on Tuesday03/07/23 at [facility] Polymyalgia rheumatic, CAD, history of CABG History of patent foramen ovale Right carotid endarterectomy, history of Hypertension Hyperlipidemia Diabetes mellitus type 2 History of CVA COPD Ongoing tobacco dependence, smokes cigars Aortic aneurysm repair 2016 Plan: Continue on current medication regime ,monitoring and symptomatic treatment. Echo ordered Labs pending. Orthostatic vital signs every shift. Cardiology, pulmonary consult in place, recommendations pending. Low dose of Lantus, close monitoring of blood sugars. PT/OT consulted.
--- NOTE | 2023-03-13 17:49 | P.PN ---
Subjective Progress Note Date: 03/13/23 82-year-old gentleman with past medical history significant for hypertension, hyperlipidemia, CAD, CABG, polymyalgia rheumatica, ongoing nicotine dependence- smokes 2-5 cigars daily, CVA, TIA, PAD, recent Angio Tuesday03/07/23 at [facility], brought into the ER with complaints of multiple falls, losing balance, dizziness, lightheadedness and multiple other medical issues. Patient reports over the last 2 weeks he has been losing his balance and having multiple falls at home. He reports that yesterday ,he became dizzy, fell over backwards at home, attempted to catch himself, caught the side of the couch-Denies head trauma. Denies chest pain, palpitations or shortness of breath. Reports he is on Plavix and aspirin for groin stent. Chest x-ray reported non acute. Afebrile, WBC 3.7, hemoglobin 12.2, platelets 126, d-dimer pending, sodium 140, potassium 4.2, bicarb 21, BUN 22, creatinine 0.47, glucose 218 magnesium 1.7, LFTs within normal limits, troponins negative 3. VSS,Maintaining O2 sats in the 90s on room air. Carotid Doppler: Reported as increased measurement at the left ICA may be secondary due to turbulent or moderate left ICA stenosis. I ordered MRA neck. Per Dr. Sexton, MRI of the brain to rule out subacute CVA, rule out hydrocephalus/NPH and MRI of the cervical spine, rule out spinal stenosis. Patient does have brisk reflexes, and bilateral Babinski. B12: 802, folate 24.3 and TSH 0.631 all within normal limits. Cardiology on board; Blood pressure labile previous in the 120 range now currently in the 170 range. Lisinopril 5 mg daily was added back yesterday. Previously on 10 mg twice a day. Daughter concerned regarding elevated d-dimer. We will check lower extremity ultrasound. He denies any significant chest pain or shortness breath. Still occasionally gets lightheadedness when he stands up however fairly well controlled. Objective - Vital Signs Vital signs: Vital Signs Temp 98.3 F 03/13/23 14:29 Pulse 73 03/13/23 14:29 Resp 16 03/13/23 14:29 BP 130/65 03/13/23 14:29 Pulse Ox 95 03/13/23 14:29 FiO2 Intake & Output 03/12/23 03/13/23 03/13/23 18:59 06:59 18:59 Intake Total 358 480 Balance 358 480 Intake: Oral 358 480 Other: Voiding Method Toilet # Voids 2 1 3 - Exam GENERAL: Sitting up on stretcher,NAD HEENT: Normocephalic ,Conjunctivae normal. eyes normal. NECK: Supple, No JVD. No thyroid enlargement. No LNs CARDIOVASCULAR: S1, S2 regular. Systolic murmur RESPIRATION: Breath sounds diminished in the bases. No rhonchi or crackles. No bronchial breathing. ABDOMEN: Soft, nondistended, nontender. No guarding. no masses palpable. No ascites, No hepatosplenomegaly.Bowel sounds heard. LEGS: No edema. no swelling PSYCHIATRY: Alert and oriented X3, mood and affect normal. NERVOUS SYSTEM: Cranial N 2-12 grossly normal.No focal deficits. Strength and sensation grossly intact.. Skin: Warm and dry , no fern - Labs CBC & Chem 7: 03/13/23 14:27 03/13/23 14:27 Labs: Abnormal Lab Results - Last 24 Hours (Table) 03/12/23 03/13/23 03/13/23 Range/Units 20:04 14:27 14:27 RBC 4.25 L (4.30-5.90) m/uL Plt Count 148 L (150-450) k/uL Glucose 160 H (74-99) mg/dL POC Glucose (mg/dL) 144 H (70-110) mg/dL 03/13/23 Range/Units 17:33 RBC (4.30-5.90) m/uL Plt Count (150-450) k/uL Glucose (74-99) mg/dL POC Glucose (mg/dL) 131 H (70-110) mg/dL Assessment and Plan Assessment: Multiple recent falls secondary to reported increased generalized weakness, dizziness, (shortness of breath, decrease appetite, intermittent episodes of confusion-per note left by daughter at bedside )workup in progress PAD, recent Angio on Tuesday03/07/23 at [facility] Polymyalgia rheumatic, CAD, history of CABG History of patent foramen ovale Right carotid endarterectomy, history of Hypertension Hyperlipidemia Diabetes mellitus type 2 History of CVA COPD Ongoing tobacco dependence, smokes cigars Aortic aneurysm repair 2016 Plan: Continue on current medication regime ,monitoring and symptomatic treatment. Echo ordered Labs pending. Orthostatic vital signs every shift. Cardiology, pulmonary consult in place, recommendations pending. Low dose of Lantus, close monitoring of blood sugars. PT/OT consulted.
[2023-03-13 20:56] LABS: Glucose,Whole Blood 222 mg/dL (70-110)
[2023-03-13] MEDS: ATORVASTATIN 80 MG TAB PO SCH (21:05)
[2023-03-14 06:18] LABS: Glucose,Whole Blood 113 mg/dL (70-110)
[2023-03-14] MEDS: SODIUM CHLORIDE 0.9% 1,000 ML IV SCH ×2 (06:32→22:21)
[2023-03-14] MEDS: INSULIN ASPART (NovoLOG) 100 UNIT/ML VIAL SQ SCH ×4 (06:32→22:18)
[2023-03-14] MEDS: INSULIN DETEMIR (LEVEMIR) 100 UNIT/ML SYR SQ SCH (06:41)
[2023-03-14 06:57] LABS: African American GFR (CKD) >90 (>60 ml/min/1.73 sqM); Anion Gap 6 mmol/L; Blood Urea Nitrogen 16 mg/dL (9-20); Calcium 9.2 mg/dL (8.4-10.2); Carbon Dioxide 29 mmol/L (22-30); Chloride 106 mmol/L (98-107); Glucose 111 mg/dL (74-99); Non-African American GFR(CKD) >90 (>60 ml/min/1.73 sqM); Potassium 4.7 mmol/L (3.5-5.1); Sodium 141 mmol/L (137-145)
[2023-03-14] MEDS: lisinopriL 10 MG TAB PO SCH (08:37)
[2023-03-14] MEDS: ASPIRIN 81 MG PO SCH (08:37)
[2023-03-14] MEDS: PANTOPRAZOLE 40 MG/10 ML VIAL IVP SCH (08:37)
[2023-03-14] MEDS: CLOPIDOGREL 75 MG TAB PO SCH (08:37)
[2023-03-14 12:44] LABS: Glucose,Whole Blood 111 mg/dL (70-110)
--- NOTE | 2023-03-14 14:32 | P.DS ---
Providers Date of admission: 03/14/23 10:42 Expected date of discharge: 03/14/23 Attending physician: Cody Perez MD Consults: 03/10/23 22:14 Consult Physician Routine Consulting Provider: Syed Ruiz Consult Reason/Comments: weak Do you want consulting provider notified?: Yes Consult Physician Routine Consulting Provider: Will Nye Consult Reason/Comments: hypoxia Do you want consulting provider notified?: Yes Consult Physician Routine Consulting Provider: Amber Sexton Consult Reason/Comments: falls Do you want consulting provider notified?: Yes Consult Physician Routine Consulting Provider: Navjot Hammer Consult Reason/Comments: known Do you want consulting provider notified?: Yes Primary care physician: Cody Perez MD Hospital Course: Final Diagnoses: Multiple recent falls secondary to reported increased generalized weakness, dizziness, (shortness of breath, decrease appetite, intermittent episodes of confusion-per note left by daughter at bedside )workup in progress; revealing subacute CVA in, ruling out cervical myelopathy, possible NPH, possible moderate left ICA stenosis-MRA of neck pending. PAD, recent Angio on Tuesday03/07/23 at [facility] Polymyalgia rheumatic, CAD, history of CABG History of patent foramen ovale Right carotid endarterectomy, history of Hypertension Hyperlipidemia Diabetes mellitus type 2 History of CVA COPD Ongoing tobacco dependence, smokes cigars Aortic aneurysm repair 2017 Hospital course:This is a pleasant 82-year-old gentleman with past medical history significant for hypertension, hyperlipidemia, CAD, CABG, polymyalgia rheumatica, ongoing nicotine dependence-smokes 2-5 cigars daily, CVA, TIA, PAD, recent Angio Tuesday03/07/23 at [facility], brought into the ER with complaints of multiple falls, losing balance, dizziness, lightheadedness and multiple other medical issues. Patient reports over the last 2 weeks he has been losing his balance and having multiple falls at home. He reports that yesterday ,he became dizzy, fell over backwards at home, attempted to catch himself, caught the side of the couch-Denies head trauma. Denies chest pain, palpitations or shortness of breath. Reports he is on Plavix and aspirin for groin stent. Chest x-ray reported non acute. Afebrile, WBC 3.7, hemoglobin 12.2, platelets 126, d-dimer pending, sodium 140, potassium 4.2, bicarb 21, BUN 22, creatinine 0.47, glucose 218 magnesium 1.7, LFTs within normal limits, troponins negative 3. VSS,Maintaining O2 sats in the 90s on room air. Sitting up in chair, reports he feels much better . Slept well. Denies shortness of breath, cough or congestion. Denies chest tightness. Reports he ambulated, tolerated exertion well, with no lightheadedness dizziness or focal deficits.Negative for orthostatic hypotension, reported systolic blood pressures: 148/78 sitting, heart rate in the 60s, 155/90 , heart rate in the 80s standing. Neurology workup in progress; MRA of neck regarding carotid stenosis pending, brain and C-spine MRI pending, A1c 5.7. Echo reported preserved LV function, mild aortic stenosis, mean gradient of 10mmHg, chest CTA reported negative for pulmonary embolism, venous Doppler reported no evidence of DVT of the bilateral lower extremities from groin to upper calves. Hemoglobin yesterday 13.2, platelets 148. Cleared by cardiology for discharge. Evaluated by physical therapy with discharge recommendations of home. Patient will be discharged home today in a stable condition with guarded prognosis, pending completion of neuro workup, final DC recommendations and clearance per neurology. The impression and plan of care has been dictated as directed. : I performed a history and examination of this patient, discussed the same with the dictator. I agree with the dictator's note ,documented as a scribe. Any additional findings or plans will be noted. Patient Condition at Discharge: Stable Plan - Discharge Summary Discharge Rx Participant: No New Discharge Prescriptions: New Pantoprazole Sodium [Protonix] 40 mg PO DAILY #30 tab Continue Clopidogrel [Plavix] 75 mg PO DAILY #90 tab predniSONE 2.5 mg PO SUTUTHSA Cholecalciferol [Vitamin D3 (25 Mcg = 1000 Iu)] 25 mcg PO DAILY Atorvastatin [Lipitor] 80 mg PO HS Multi-Collagen 2 tab PO HS Mv-Mn/Om3/Dha/Epa/Fish/Lut/Erica [Ocuvite Adult 50 Plus Softgel] 1 cap PO DAILY Glucos Sul 2Kcl/MSM/Chond/C/Mn [Glucosamine Chondroitin Cap] 1 cap PO DAILY Ubidecarenone [Co Q-10] 400 mg PO DAILY lisinopriL [Zestril] 10 mg PO BID glipiZIDE XL [Glucotrol XL] 5 mg PO DAILY Vitamin B Complex 1 cap PO DAILY Multivit-Min/FA/Lycopen/Lutein [Centrum Silver Men Tablet] 1 tab PO DAILY Aspirin EC [Ecotrin Low Dose] 81 mg PO DAILY Discontinued Meloxicam [Mobic] 7.5 mg PO BID Discharge Medication List Clopidogrel [Plavix] 75 mg PO DAILY #90 tab 08/10/16 [Rx] predniSONE 2.5 mg PO SUTUTHSA 02/25/17 [History] Atorvastatin [Lipitor] 80 mg PO HS 10/22/22 [History] Cholecalciferol [Vitamin D3 (25 Mcg = 1000 Iu)] 25 mcg PO DAILY 10/22/22 [History] Glucos Sul 2Kcl/MSM/Chond/C/Mn [Glucosamine Chondroitin Cap] 1 cap PO DAILY 10/22/22 [History] Mv-Mn/Om3/Dha/Epa/Fish/Lut/Erica [Ocuvite Adult 50 Plus Softgel] 1 cap PO DAILY 10/22/22 [History] Ubidecarenone [Co Q-10] 400 mg PO DAILY 10/22/22 [History] glipiZIDE XL [Glucotrol XL] 5 mg PO DAILY 10/22/22 [History] lisinopriL [Zestril] 10 mg PO BID 10/22/22 [History] Aspirin EC [Ecotrin Low Dose] 81 mg PO DAILY 03/10/23 [History] Multi-Collagen 2 tab PO HS 03/10/23 [History] Multivit-Min/FA/Lycopen/Lutein [Centrum Silver Men Tablet] 1 tab PO DAILY 03/10/23 [History] Vitamin B Complex 1 cap PO DAILY 03/10/23 [History] Pantoprazole Sodium [Protonix] 40 mg PO DAILY #30 tab 03/14/23 [Rx] Follow up Appointment(s)/Referral(s): Cody Perez MD [Primary Care Provider] - 3 Days
[2023-03-14 16:58] LABS: Glucose,Whole Blood 175 mg/dL (70-110)
[2023-03-14 21:40] LABS: Glucose,Whole Blood 199 mg/dL (70-110)
[2023-03-14] MEDS: ATORVASTATIN 80 MG TAB PO SCH (22:18)
[2023-03-15 06:00] LABS: Glucose,Whole Blood 123 mg/dL (70-110)
[2023-03-15] MEDS: INSULIN ASPART (NovoLOG) 100 UNIT/ML VIAL SQ SCH ×4 (06:09→20:09)
[2023-03-15] MEDS: INSULIN DETEMIR (LEVEMIR) 100 UNIT/ML SYR SQ SCH (06:18)
[2023-03-15] MEDS: PANTOPRAZOLE 40 MG/10 ML VIAL IVP SCH (08:22)
[2023-03-15] MEDS: lisinopriL 10 MG TAB PO SCH (08:23)
[2023-03-15] MEDS: ASPIRIN 81 MG PO SCH (08:23)
[2023-03-15] MEDS: SODIUM CHLORIDE 0.9% 1,000 ML IV SCH ×2 (08:23→19:57)
[2023-03-15] MEDS: CLOPIDOGREL 75 MG TAB PO SCH (08:23)
--- NOTE | 2023-03-15 10:53 | P.PN ---
Subjective Progress Note Date: 03/14/23 Patient was seen for a follow-up. Patient states that he is feeling much better. He is walking well, walked with the therapist full length of the hallway by himself without any device. The nurse was by the side without need for any help. Patient believes that he fell because he stood up too fast and f ell. Objective - Vital Signs Vital signs: Vital Signs Temp 97.8 F 03/14/23 13:00 Pulse 65 03/14/23 13:00 Resp 17 03/14/23 07:00 BP 138/80 03/14/23 13:00 Pulse Ox 98 03/14/23 13:00 FiO2 Intake & Output 03/14/23 03/14/23 03/15/23 06:59 18:59 06:59 Intake Total 1196 Balance 1196 Intake: Oral 1196 Other: Voiding Method Toilet # Voids 1 1 - Exam Patient's mental status, speech and language functions are normal. Muscle strength is normal. Patient walked in the hallway, and appeared very steady. He was able to turn around without difficulty. No NPH gait. - Labs CBC & Chem 7: 03/13/23 14:27 03/14/23 05:58 Labs: Abnormal Lab Results - Last 24 Hours (Table) 03/14/23 03/14/23 03/14/23 Range/Units 05:58 06:16 12:43 Creatinine 0.52 L (0.66-1.25) mg/dL Glucose 111 H (74-99) mg/dL POC Glucose (mg/dL) 113 H 111 H (70-110) mg/dL 03/14/23 Range/Units 16:57 Creatinine (0.66-1.25) mg/dL Glucose (74-99) mg/dL POC Glucose (mg/dL) 175 H (70-110) mg/dL Assessment and Plan Assessment: * Gait imbalance, tendency to fall for last 2 months. Patient has fell about 4 times, mainly due to losing balance. No syncopal symptoms or passing out. * Mildly abnormal CT head, with prominence of the ventricles, suggestive of possible NPH. Patient does have gait imbalance but denies any memory loss, or problems with control of urine. 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 Dr. Nye ordered MRA neck. * MRI of the brain to rule out subacute CVA, rule out hydrocephalus/NPH * Patient's gait appears fairly steady at this time. He does not have bowel or bladder control issues. No myelopathy. Cancel MRI of the cervical spine. * B12 802, folate 24.3 and TSH 0.61, all normal. * Patient recommended to start using either a 4 pronged cane or preferable a walker to prevent falls. * Continue aspirin 81 mg, Plavix and Lipitor 80 mg daily. * Neurology will follow after MRI is completed.
--- NOTE | 2023-03-15 11:28 | MR ---
EXAMINATION TYPE: MR angio neck wo/w con DATE OF EXAM: 03/15/2023 11:04 AM CLINICAL INDICATION:Male, 82 years old with history of carotid stenosis; Carotid stenosis. COMPARISON: Ultrasound 03/12/2023 TECHNIQUE: Multiplanar, multi-sequence imaging as well as [id number] and phase contrast imaging w as performed extracranial vasculature of the neck. 2-D and 3-D [id number] imaging. 3-D reformatte d images and maximum intensity projection reformatted images were submitted for evaluation. IV Contrast: 5.5 cc Gadavist FINDINGS: RIGHT CAROTID SYSTEM: The common carotid artery is patent. There is high-grade stenosis with poor vis ualization of the right internal carotid artery proximal portion just past bifurcation extending appr oximately 2.5 cm. Where there is improved signal. On 3-D imaging there appears smaller signal through this section suggesting patency however there is felt to be up to 70% stenosis to this section. The remainder of the internal carotid artery appears patent.. The remainder of the internal carotid arter ies patent. LEFT CAROTID SYSTEM: The common carotid artery is patent. Atherosclerotic plaque at the bifurcation with less than 50% stenosis.. The internal carotid arteries patent. The origins of the great vessels and vertebral arteries appear unremarkable. The left vertebral marge ry is slightly more dominant. IMPRESSIONS: 1. Short segment of stenosis involving the right internal carotid artery extending approximately 2.5 cm cephalad from the bifurcation. There is some signal extending to this region suggesting patency h owever there is flow limiting stenosis in this segment of up to 70%. 2. The left carotid system is patent. There is less than 50% stenosis at the bifurcation. 3. The vertebral arteries are patent. 4. No evidence aneurysm.
[2023-03-15 12:06] LABS: Glucose,Whole Blood 135 mg/dL (70-110)
--- NOTE | 2023-03-15 14:59 | P.PN ---
Subjective Progress Note Date: 03/15/23 H&P This is a pleasant 82-year-old gentleman with past medical history significant for hypertension, hyperlipidemia, CAD, CABG, polymyalgia rheumatica, ongoing nicotine dependence-smokes 2-5 cigars daily, CVA, TIA, PAD, recent Angio Tuesday03/07/23 at [facility], brought into the ER with complaints of multiple falls, losing balance, dizziness, lightheadedness and multiple other medical issues. Patient reports over the last 2 weeks he has been losing his balance and having multiple falls at home. He reports that yesterday ,he became dizzy, fell over backwards at home, attempted to catch himself, caught the side of the couch-Denies head trauma. Denies chest pain, palpitations or shortness of breath. Reports he is on Plavix and aspirin for groin stent. Chest x-ray reported non acute. Afebrile, WBC 3.7, hemoglobin 12.2, platelets 126, d-dimer pending, sodium 140, potassium 4.2, bicarb 21, BUN 22, creatinine 0.47, glucose 218 magnesium 1.7, LFTs within normal limits, troponins negative 3. VSS,Maintaining O2 sats in the 90s on room air. 03/14/2023 Sitting up in chair, reports he feels much better . Slept well. Denies shortness of breath, cough or congestion. Denies chest tightness. Reports he ambulated, tolerated exertion well, with no lightheadedness dizziness or focal deficits.Negative for orthostatic hypotension, reported systolic blood pressures: 148/78 sitting, heart rate in the 60s, 155/90 , heart rate in the 80s standing. Neurology workup in progress; MRA of neck regarding carotid stenosis pending, brain and C-spine MRI pending, A1c 5.7. Echo reported preserved LV function, mild aortic stenosis, mean gradient of 10mmHg, chest CTA reported negative for pulmonary embolism, venous Doppler reported no evidence of DVT of the bilateral lower extremities from groin to upper calves. Hemoglobin yesterday 13.2, platelets 148. Cleared by cardiology for discharge. Evaluated by physical therapy with discharge recommendations of home. MRIs of neck,cspine, brain pending. 03/15/2023 neuro workup in progress, MRIs of neck,cspine, brain pending. This will sitting up in chair, denies any new symptoms. Denies any lightheadedness, dizziness or focal deficits. Reports he's ambulating in hallway, tolerating exertion well. Denies any current balance issues. Objective - Vital Signs Vital signs: Vital Signs Temp 97.3 F L 03/15/23 06:44 Pulse 70 03/15/23 06:44 Resp 18 03/15/23 06:44 BP 108/71 03/15/23 06:44 Pulse Ox 97 03/15/23 06:44 FiO2 Intake & Output 03/14/23 03/15/23 03/15/23 18:59 06:59 18:59 Intake Total 1196 Output Total 500 Balance 1196 -500 Intake: Oral 1196 Output: Urine 500 Other: Voiding Method Toilet # Voids 1 1 # Bowel Movements 1 - Exam PHYSICAL EXAM: VITAL SIGNS: As above GENERAL: Sitting up in chair, no acute distress HEENT: Normocephalic,Conjunctivae normal. eyes normal. NECK: Supple, No JVD. No thyroid enlargement. No LNs CARDIOVASCULAR: S1, S2 regular. No murmur RESPIRATION: Equal air entry, Breath sounds diminished in the bases. No rhonchi or crackles. ABDOMEN: Soft, nondistended, nontender . No guarding. no masses palpable. Po sitive bowel sounds. LEGS: No edema. no swelling. PSYCHIATRY: Alert and oriented X3, mood and affect normal. NERVOUS SYSTEM: Cranial N 2-12 grossly normal.No focal deficits. Strength and sensation grossly intact. Skin: Warm and dry, no rash. - Labs CBC & Chem 7: 03/13/23 14:27 03/14/23 05:58 Labs: Abnormal Lab Results - Last 24 Hours (Table) 03/14/23 03/14/23 03/15/23 Range/Units 16:57 21:38 05:59 POC Glucose (mg/dL) 175 H 199 H 123 H (70-110) mg/dL 03/15/23 Range/Units 12:04 POC Glucose (mg/dL) 135 H (70-110) mg/dL Assessment and Plan Assessment: Multiple recent falls secondary to reported increased generalized weakness, dizziness, (shortness of breath, decrease appetite, intermittent episodes of confusion-per note left by daughter at bedside )workup in progress PAD, recent Angio on Tuesday03/07/23 at [facility] Polymyalgia rheumatic, CAD, history of CABG History of patent foramen ovale Right carotid endarterectomy, history of Hypertension Hyperlipidemia Diabetes mellitus type 2 History of CVA COPD Ongoing tobacco dependence, smokes cigars Aortic aneurysm repair 2016 Plan: Continue on current medication regime ,monitoring and symptomatic treatment. MRI of neck, Cspine, and brain pending. Discharge planning pending results of MRIs and neurology clearance. The impression and plan of care has been dictated as directed. : I performed a history and examination of this patient, discussed the same with the dictator. I agree with the dictator's note ,documented as a scribe. Any additional findings or plans will be noted.
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
--- NOTE | 2023-03-15 15:52 | MR ---
EXAMINATION TYPE: MR brain wo con DATE OF EXAM: 03/15/2023 11:04 AM COMPARISON: 06/12/2018 CLINICAL INDICATION:Male, 82 years old with history of Hydrocephalus, spinal stenosis, falls; Slinger cephalus, falls. TECHNIQUE: Multi planar, multi sequence imaging was performed through the brain including: T1, T2, In version recovery, Diffusion weighted imaging, and gradient echo imaging. No gadolinium was given. FINDINGS: Punctate focus within left posterior shay near midline and scattered throughout the left cerebral hem isphere restricted diffusion. Choroid plexus intraparenchymal granuloma noted. Dilation of ventricular system with cerebral atrophy changes similar to 2018. The melgar-white junction s, and cisterns appear unremarkable. Scattered foci of high T2 signal intensity are seen within the periventricular white matter. Midline structures show no abnormality. The susceptibility weighted lin ges do not reveal any evidence for micro-hemorrhage. The bone marrow signal is within normal limits. Paranasal sinuses and mastoid air cells: No significant paranasal sinus disease. Visualized orbits: Orbital contents are intact. IMPRESSION: 1. Scattered microinfarcts involving the left posterior shay and left cerebellar hemisphere. 2. Nonspecific white matter changes, likely secondary to small vessel ischemic disease. 3. Similar cerebral atrophy with ventricular dilation dating back to 2018.
[2023-03-15 17:26] LABS: Glucose,Whole Blood 177 mg/dL (70-110)
[2023-03-15 19:34] VITALS: RESP 16
[2023-03-15] MEDS: ATORVASTATIN 80 MG TAB PO SCH (19:58)
[2023-03-15 20:10] LABS: Glucose,Whole Blood 165 mg/dL (70-110)
[2023-03-16 05:50] LABS: Basophils % (A) 1 %; Eosinophils # (A) 0.2 k/uL (0-0.7); Eosinophils % (A) 3 %; HCT 36.8 % (39.0-53.0); HGB 12.7 gm/dL (13.0-17.5); Lymphocytes # (A) 1.7 k/uL (1.0-4.8); Lymphocytes % (A) 25 %; MCH 32.2 pg (25.0-35.0); MCHC 34.6 g/dL (31.0-37.0); Mean Platelet Volume 9.5; Monocytes # (A) 0.7 k/uL (0-1.0); Monocytes % (A) 10 %; Neutrophils # (A) 4.3 k/uL (1.3-7.7); Neutrophils % (A) 61 %; Platelet Count 142 k/uL (150-450); RBC 3.96 m/uL (4.30-5.90); RDW 13.3 % (11.5-15.5); WBC 7.1 k/uL (3.8-10.6)
[2023-03-16 05:59] LABS: ALT 36 U/L (4-49); AST 30 U/L (17-59); African American GFR (CKD) >90 (>60 ml/min/1.73 sqM); Albumin 3.5 g/dL (3.5-5.0); Albumin/Globulin Ratio 1.4; Alkaline Phosphatase 106 U/L (38-126); Anion Gap 6 mmol/L; Blood Urea Nitrogen 21 mg/dL (9-20); Calcium 8.9 mg/dL (8.4-10.2); Carbon Dioxide 28 mmol/L (22-30); Chloride 103 mmol/L (98-107); Globulin 2.5 g/dL; Glucose 131 mg/dL (74-99); Non-African American GFR(CKD) >90 (>60 ml/min/1.73 sqM); Sodium 137 mmol/L (137-145); Total Bilirubin 0.4 mg/dL (0.2-1.3)
[2023-03-16 06:08] LABS: Glucose,Whole Blood 157 mg/dL (70-110)
[2023-03-16] MEDS: INSULIN DETEMIR (LEVEMIR) 100 UNIT/ML SYR SQ SCH (06:31)
[2023-03-16] MEDS: INSULIN ASPART (NovoLOG) 100 UNIT/ML VIAL SQ SCH ×2 (06:32→14:33)
--- NOTE | 2023-03-16 08:51 | P.PN ---
Subjective Progress Note Date: 03/15/23 Patient was seen for a follow-up. Patient denies any new neurological symptoms. Patient states that he is feeling much better. Patient's daughter was also present today, who mentions that prior to arrival, patient has mentioned that he was not feeling well, was feeling dizzy, lightheaded, and he was falling. At present he does not have any those symptoms. Objective - Vital Signs Vital signs: Vital Signs Temp 97.3 F L 03/15/23 06:44 Pulse 70 03/15/23 06:44 Resp 18 03/15/23 06:44 BP 108/71 03/15/23 06:44 Pulse Ox 97 03/15/23 06:44 FiO2 Intake & Output 03/14/23 03/15/23 03/15/23 18:59 06:59 18:59 Intake Total 1196 Output Total 500 Balance 1196 -500 Intake: Oral 1196 Output: Urine 500 Other: Voiding Method Toilet # Voids 1 1 # Bowel Movements 1 - Exam Patient's mental status, speech and language functions are normal. Muscle strength is normal. Patient walked in the hallway, and appeared very steady. He was able to turn around without difficulty. No NPH gait. - Labs CBC & Chem 7: 03/16/23 05:03 03/16/23 05:03 Labs: Abnormal Lab Results - Last 24 Hours (Table) 03/14/23 03/14/23 03/15/23 Range/Units 16:57 21:38 05:59 POC Glucose (mg/dL) 175 H 199 H 123 H (70-110) mg/dL 03/15/23 Range/Units 12:04 POC Glucose (mg/dL) 135 H (70-110) mg/dL Assessment and Plan Assessment: * Acute ischemic stroke, multiple, involving posterior circulation in the left posterior shay and left cerebellar hemisphere. Suggestive of embolic phenomenon. Patient has history of PFO, rule out cardiac source. * Right ICA stenosis 70% per MRA. * Gait imbalance, tendency to fall for last 2 months. Patient has fell about 4 times, mainly due to losing balance. No syncopal symptoms or passing out. * Mildly abnormal CT head, with prominence of the ventricles, suggestive of possible NPH. Patient does have gait imbalance but denies any memory loss, or problems with control of urine. 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 I personally reviewed MRI, I agree with the findings. There are approximately 4 different areas of acute ischemic infarction in the posterior circulation, likely the cause of dizziness, gait imbalance. The ventricles are prominent, but patient does not have clinical features of NPH at this time. * Patient has history of PFO, and CVA are suggestive of possible cardiac embolism. Patient is already on aspirin and Plavix. We will reconsult cardiology to consider either PFO closure, or consider anticoagulation. Patient may need a repeat VAUGHN. * Carotid Doppler: Reported as increased measurement at the left ICA may be secondary due to turbulent or moderate left ICA stenosis. * MRA of the neck showed short segment of stenosis involving the right ICA extending approximately 2.5 cm cephalad from the bifurcation. There is some signal extending to this region suggesting patency however there is flow limiting stenosis in this segment up to 70%. Less than 50% stenosis of the left carotid bifurcation. * Consult vascular surgery for right ICA stenosis. * B12 802, folate 24.3 and TSH 0.61, all normal. * Patient recommended to start using either a 4 pronged cane or preferable a walker to prevent falls. * Continue aspirin 81 mg, Plavix and Lipitor 80 mg daily. * Discussed with patient's daughter in detail and informed of the results, reviewed MRI of the brain on the computer with her.
[2023-03-16] MEDS ORDERED: fentaNYL (PF) 50 MCG/ML 2 ML AMP ONE (09:46)
--- NOTE | 2023-03-16 09:58 | XR ---
EXAMINATION TYPE: XR shoulder complete RT DATE OF EXAM: 03/16/2023 CLINICAL HISTORY: pain TECHNIQUE: Three views of the right shoulder are obtained. COMPARISON: None FINDINGS: There is no acute fracture/dislocation evident. Elevation right humeral head relative to t he central glenoid axis may reflect chronic rotator cuff tear. There appears to be remodeling of the undersurface of the acromion. The visualized ribs are intact and unremarkable. IMPRESSION: 1. There is no acute fracture or dislocation. Correlate for chronic rotator cuff tear ICD 10 NO FRACTURE, INITIAL EVALUATION
[2023-03-16] MEDS ORDERED: IV FLUID CONTINUATION 1,000 ML IV ONE (10:10)
[2023-03-16] MEDS ORDERED: BENZOCAINE SPRAY 1 CAN MUCOUS MEM ONE (10:10)
[2023-03-16] MEDS ORDERED: fentaNYL (PF) 50 MCG/ML 2 ML AMP IV ONE (10:12)
[2023-03-16] MEDS ORDERED: MIDAZOLAM 2 MG/2 ML VIAL IV ONE (10:12)
[2023-03-16] MEDS ORDERED: SODIUM CHLORIDE 0.9% 1,000 ML IV SCH (10:30)
--- NOTE | 2023-03-16 10:30 | P.PCN ---
Date of Procedure: 03/16/23 Description of Procedure: Indication: Evidence of CVA and cardiac source Procedure Description: After explaining the procedure to the patient, it's risk and complications, blood pressure, heart rate and O2 saturation were monitored. The throat was sprayed with Cetacaine. Patient received to mg intravenous Versed, 50 mcg intravenous fentanyl. The probe was introduced into the esophagus without difficulty. Images were obtained. Following that, the probe was removed. There was no immediate complication. Findings: Left atrial size is normal, left atrial appendage is normal. Left ventricular size and systolic function are normal. Moderate mitral anulus calcification was noted. The aortic valve is a tricuspid valve with moderate calcification and mildly reduced opening. The tricuspid valve is normal. Descending thoracic aorta revealed mild atherosclerotic changes. No pericardial effusion was noted. The intra-atrial septum is aneurysmal with evidence of reversal of shunt with Valsalva maneuver and contrast bubble study. Doppler: Pulse wave and color Doppler were obtained, an revealed mild mitral, tricuspid and moderate aortic regurgitation. There was evidence of patent foramen ovale with left to right shunting. Conclusion: 1. Normal ventricle size and systolic function 2. Aneurysmal intra-atrial septum with patent foramen ovale and reversal of flow by contrast bubble study 3. Mild mitral, tricuspid and moderate aortic regurgitation 4. Mitral annulus calcification 5. Aortic sclerosis with no significant stenosis Duration of sedation 15 minutes
--- NOTE | 2023-03-16 10:44 | P.PN ---
Subjective Progress Note Date: 03/16/23 HISTORY OF PRESENT ILLNESS: This is a 82-year-old male with a past medical history significant for hype rtension, hyperlipidemia, peripheral vascular disease, nicotine dependence, coronary artery disease with previous four-vessel CABG in 2016 (LIMALAD, VGD1, VGOM1, VGRCA), and AAA repair in 2017. Patient follows in the office with Dr. Ruiz. We have been asked to see the patient in consultation for weakness. Patient examined at the bedside. The patient underwent lower extremity angiogram at [facility] on Tuesday with Dr. Henriquez. Per patient, he was found to have a 90% blockage in his right lower extremity and is scheduled to have intervention in the near future. The patient states he has been feeling dizzy and lightheaded at home. The family member at the bedside states his oxy gen levels have been running low. He reports feeling weak and having multiple falls at home since having the procedure performed. He apparently has also been losing weight and does not have much of an appetite. He denied any chest pain or pressure. Denied any shortness of breath. He denied having any palpitations. * EKG reveals sinus mechanism with no signs of acute ischemia * Chest xray negative for acute process * CT brain: No acute intracranial process. Remote right cornea radiata injury. new from 2020 * Laboratory data: WBC 3.7. Hemoglobin 12.2. Platelet count 126. Sodium 140. Potassium 4.2. BUN 22. Creatinine 0.47. Troponin negative 3. * Current home cardiac medications include aspirin 81 mg daily, Lipitor 80 mg at night, lisinopril 10 mg twice a day, Plavix 75 mg daily * Most recent echocardiogram obtained in November 2022 revealed normal ejection fraction, mild MR, moderate TR, moderate AR * Patient underwent VAUGHN and June 2018 revealing normal left ventricular size and systolic function, normal appearance left atrial appendage, mild mitral, tricuspid, and aortic regurgitation, evidence of shunting across the patent foramen ovale with birdp-gf-audd shunting with Valsalva maneuver and highly mobile intra-atrial septum, mild atherosclerotic changes of descending thoracic aorta, no evidence of pericardial effusion. 03/12 Patient was having somewhat borderline blood pressures in the 110 range and therefore his lisinopril has been held. Echocardiogram repeated which shows normal left ventricular function with mild aortic stenosis. He states he is feeling back to his normal self. Denies any further lightheaded episodes. CTA showed no pulmonary embolism and no acute cardiopulmonary process. 03/13 Patient seen and examined. Blood pressure labile previous in the 120 range now currently in the 170 range. Lisinopril 5 mg daily was added back yesterday. Previously on 10 mg twice a day. Daughter concerned regarding elevated d-dimer. Discussed that multiple reasons for elevated d-dimer. Daughter however concern given recent procedure and risk of DVT. We will check lower extremity ultrasound for completeness sake. He denies any significant chest pain or shortness breath. Still occasionally gets lightheadedness when he stands up however fairly well controlled. 03/16 Patient was last seen by cardiology on 03/13 and he was cleared for discharge at that time. Subsequently, patient had workup for falls and on MRI was found to have scattered microinfarcts involving the left posterior shay and left cerebral hemisphere. These were thought to be acute findings and thus we have been asked to reevaluate the patient for possible VAUGHN. Discussed with patient and his son at the bedside and will proceed with VAUGHN today. PHYSICAL EXAM: VITAL SIGNS: Reviewed. GENERAL: Well-developed in no acute distress. HEENT: Head is normocephalic. Pupils are equal, round. Sclerae anicteric. Mucous membranes of the mouth are moist. Neck supple. No JVD or thyromegaly LUNGS: Respirations even and unlabored. Lungs essentially clear to auscultation bilaterally. HEART: Regular rate and rhythm. S1 and S2 heard. Systolic murmur noted. ABDOMEN: Soft. Nondistended. Nontender. EXTREMITIES: Normal range of motion. No clubbing or cyanosis. Peripheral pulses intact. No lower extremity edema NEUROLOGIC: Awake and alert. Oriented x 3. ASSESSMENT: Generalized weakness with frequent falls at home Dizziness and lightheadedness Decreased appetite with weight loss Recent lower extremity angiogram revealing 90% blockage of right lower extremity, per patient Coronary artery disease with previous four-vessel CABG in 2016 History of AAA repair, 2017 Peripheral vascular disease PFO, per VAUGHN in 2018 History of TIA Hypertension Hyperlipidemia Ongoing nicotine dependence PLAN: Echocardiogram shows preserved EF without significant valvular disease and CT shows no pulmonary embolism. Scheduled patient for VAUGHN today Patient is cleared for discharge from a cardiology standpoint following VAUGHN and may be scheduled for outpatient device closure. Follow-up in office in 1-2 weeks. Nurse practitioner note has been reviewed, I agree with the documented findings and plan of care. Patient was seen and examined. Objective - Vital Signs Vital signs: Vital Signs Temp 97.9 F 03/16/23 02:31 Pulse 89 03/16/23 02:31 Resp 16 03/16/23 02:31 BP 123/78 03/16/23 02:31 Pulse Ox 98 03/16/23 02:31 FiO2 Intake & Output 03/15/23 03/16/23 03/16/23 18:59 06:59 18:59 Intake Total 180 Balance 180 Intake: Oral 180 Other: Voiding Method Toilet # Voids 3 2 - Labs CBC & Chem 7: 03/16/23 05:03 03/16/23 05:03 Labs: Abnormal Lab Results - Last 24 Hours (Table) 03/15/23 03/15/23 03/15/23 Range/Units 12:04 17:24 20:08 RBC (4.30-5.90) m/uL Hgb (13.0-17.5) gm/dL Hct (39.0-53.0) % Plt Count (150-450) k/uL BUN (9-20) mg/dL Glucose (74-99) mg/dL POC Glucose (mg/dL) 135 H 177 H 165 H (70-110) mg/dL Total Protein (6.3-8.2) g/dL 03/16/23 03/16/23 03/16/23 Range/Units 05:03 05:03 06:05 RBC 3.96 L (4.30-5.90) m/uL Hgb 12.7 L (13.0-17.5) gm/dL Hct 36.8 L (39.0-53.0) % Plt Count 142 L (150-450) k/uL BUN 21 H (9-20) mg/dL Glucose 131 H (74-99) mg/dL POC Glucose (mg/dL) 157 H (70-110) mg/dL Total Protein 6.0 L (6.3-8.2) g/dL
--- NOTE | 2023-03-16 11:14 | P.PN ---
Subjective Progress Note Date: 03/16/23 Principal diagnosis: Weakness, gait and balance Patient is seen today and examined as a follow-up. He denies any focal deficits. Apparently he got up to the bathroom through the night and fell. Yesterday he underwent MRA of the neck and MRI of the head. MRA of the neck reported flow-limiting stenosis up to 70% in the right ICA. However this was independently reviewed and does not appear to have flow-limiting stenosis stent is patent. Agree with less than 50% stenosis of the left ICA. MRI of the brain did report scattered microinfarcts involving the left posterior shay and left cerebellar hemisphere. Nonspecific white matter changes likely secondary to small vessel ischemic disease. Cardiology is following and patient scheduled for VAUGHN this afternoon. Objective - Vital Signs Vital signs: Vital Signs Temp 98.4 F 03/16/23 08:00 Pulse 82 03/16/23 08:00 Resp 16 03/16/23 08:00 BP 116/70 03/16/23 08:00 Pulse Ox 98 03/16/23 08:00 FiO2 Intake & Output 03/15/23 03/16/23 03/16/23 18:59 06:59 18:59 Intake Total 180 Balance 180 Intake: Oral 180 Other: Voiding Method Toilet # Voids 3 2 - Exam General appearance: The patient is alert, oriented, appears in no acute distress. HET: Head is normocephalic and atraumatic. Pupils are equal and reactive. Neck: Supple. No audible carotid bruit. Heart: Regular. Lungs: Equal expansion, normal respiratory effort. Abdomen: Soft, nontender, nondistended. Extremities: Normal skin color and turgor. Neurological: No focal deficits. Alert and oriented. - Labs CBC & Chem 7: 03/16/23 05:03 03/16/23 05:03 Labs: Abnormal Lab Results - Last 24 Hours (Table) 03/15/23 03/15/23 03/15/23 Range/Units 12:04 17:24 20:08 RBC (4.30-5.90) m/uL Hgb (13.0-17.5) gm/dL Hct (39.0-53.0) % Plt Count (150-450) k/uL BUN (9-20) mg/dL Glucose (74-99) mg/dL POC Glucose (mg/dL) 135 H 177 H 165 H (70-110) mg/dL Total Protein (6.3-8.2) g/dL 03/16/23 03/16/23 03/16/23 Range/Units 05:03 05:03 06:05 RBC 3.96 L (4.30-5.90) m/uL Hgb 12.7 L (13.0-17.5) gm/dL Hct 36.8 L (39.0-53.0) % Plt Count 142 L (150-450) k/uL BUN 21 H (9-20) mg/dL Glucose 131 H (74-99) mg/dL POC Glucose (mg/dL) 157 H (70-110) mg/dL Total Protein 6.0 L (6.3-8.2) g/dL Assessment and Plan Assessment: 1. Gait imbalance and fall 2. Generalized weakness 3. Reported right ICA stenosis of 70% on MRA of the neck, however independently reviewed by Dr. Christianson who disagrees with 70% stenosis and feels that is widely patent. Less than 50% stenosis of the left ICA 4. History of right ICA stenosis status post TCAR, right common carotid artery endarterectomy, right cervical carotid angioplasty and stenting 08/24/[address] Sutton at [place] 5. History of previous CVA/TIA 6. Coronary artery disease status post stenting and CABG Plan: 1. Recommend medical management with dual antiplatelet therapy if cleared by neurology 2. Continue with recommendations from neurology 3. There is no indication for any vascular surgical intervention. Patient to follow-up as scheduled with his vascular surgeon. Thank you for this consultation, patient is cleared from vascular surgery. We will sign off at this time. The impression and plan of care has been dictated as directed. Dr. East I performed a history and examination of this patient, discussed the same with the dictator. I agree with the dictator's note ,documented as a scribe. Any additional findings or plans will be noted.
[2023-03-16] MEDS: CLOPIDOGREL 75 MG TAB PO SCH (11:38)
[2023-03-16] MEDS: lisinopriL 10 MG TAB PO SCH (11:38)
[2023-03-16] MEDS: ASPIRIN 81 MG PO SCH (11:38)
[2023-03-16] MEDS: SODIUM CHLORIDE 0.9% 1,000 ML IV SCH (11:39)
[2023-03-16] MEDS: PANTOPRAZOLE 40 MG/10 ML VIAL IVP SCH (11:39)
[2023-03-16 12:02] LABS: Glucose,Whole Blood 114 mg/dL (70-110)
--- NOTE | 2023-03-16 13:33 | P.PN ---
Subjective Progress Note Date: 03/16/23 Principal diagnosis: anemia, weakness At today's visit patient is resting comfortably in bed. S/P VAUGHN today. Patient states he feels groggy. Denies pain and shortness of breath. Objective - Vital Signs Vital signs: Vital Signs Temp 98.1 F 03/16/23 10:35 Pulse 75 03/16/23 12:45 Resp 16 03/16/23 10:22 BP 129/66 03/16/23 12:45 Pulse Ox 95 03/16/23 10:35 FiO2 Intake & Output 03/15/23 03/16/23 03/16/23 18:59 06:59 18:59 Intake Total 180 75 Balance 180 75 Intake: IV 75 Oral 180 Other: Voiding Method Toilet # Voids 3 2 - Constitutional General appearance: Present: average body habitus, no acute distress - EENT Eyes: Present: anicteric sclerae, EOMI ENT: Present: hearing grossly normal - Respiratory Details: breathing is even and unlabored - Cardiovascular Details: skin warm and dry - Integumentary Integumentary: Absent: cyanotic, rash - Musculoskeletal Musculoskeletal: Present: generalized weakness - Psychiatric Psychiatric: Present: A&O x's 3, appropriate affect, intact judgment & insight - Labs CBC & Chem 7: 03/16/23 05:03 03/16/23 05:03 Labs: Abnormal Lab Results - Last 24 Hours (Table) 03/15/23 03/15/23 03/16/23 Range/Units 17:24 20:08 05:03 RBC 3.96 L (4.30-5.90) m/uL Hgb 12.7 L (13.0-17.5) gm/dL Hct 36.8 L (39.0-53.0) % Plt Count 142 L (150-450) k/uL BUN (9-20) mg/dL Glucose (74-99) mg/dL POC Glucose (mg/dL) 177 H 165 H (70-110) mg/dL Total Protein (6.3-8.2) g/dL 03/16/23 03/16/23 03/16/23 Range/Units 05:03 06:05 12:01 RBC (4.30-5.90) m/uL Hgb (13.0-17.5) gm/dL Hct (39.0-53.0) % Plt Count (150-450) k/uL BUN 21 H (9-20) mg/dL Glucose 131 H (74-99) mg/dL POC Glucose (mg/dL) 157 H 114 H (70-110) mg/dL Total Protein 6.0 L (6.3-8.2) g/dL Assessment and Plan (1) Anemia Current Visit: Yes Status: Acute Priority: Medium Code(s): D64.9 - ANEMIA, UNSPECIFIED SNOMED Code(s): 791275507 Plan: Anemia: -Patient has history of mild anemia in the past. He has been worked up in our clinic earlier this year. Additional lab workup in clinic revealed negative M- spike, immunofixation showed no monoclonal paraproteinemia, K/L ratio normal. No nutritional deficiency anemias noted. PSA and inflammatory markers also negative. His hgb in the office was noted to be back in the normal range at 13- 14 while on steroids from his flag signaler. Thus drop in Hgb due to inflammation, with improvement due to steroids appears to be a major differential. -Hemoglobin stable, 12.7 today. No reported episodes of bleeding -Iron studies not consistent with GARRETT. Hemolysis workup negative. ESR normal. It's unlikely symptoms are related to anemia, as anemia is mild and previous workup has been negative -Will continue to monitor counts -Will schedule f/u in the clinic upon discharge Dizziness/falls: -Patient undergoing extensive neuro/cardiac workup. Will defer management to neurology and cardiology team
[2023-03-16 14:46] VITALS: BP 143/81; PULSE 69; TEMP 97.5
--- NOTE | 2023-03-16 15:45 | P.DS ---
Providers Date of admission: 03/14/23 10:42 Expected date of discharge: 03/16/23 Attending physician: Cody Perez MD Consults: 03/10/23 22:14 Consult Physician Routine Consulting Provider: Syed Ruiz Consult Reason/Comments: weak Do you want consulting provider notified?: Yes Consult Physician Routine Consulting Provider: Will Nye Consult Reason/Comments: hypoxia Do you want consulting provider notified?: Yes Consult Physician Routine Consulting Provider: Amber Sexton Consult Reason/Comments: falls Do you want consulting provider notified?: Yes Consult Physician Routine Consulting Provider: Navjot Hammer Consult Reason/Comments: known Do you want consulting provider notified?: Yes 03/15/23 13:10 Consult Physician Urgent Consulting Provider: Valentin Fischer Consult Reason/Comments: ICA stenosis Do you want consulting provider notified?: Yes 03/15/23 14:17 Consult Physician Urgent Consulting Provider: Syed Ruiz Consult Reason/Comments: possible VAUGHN Do you want consulting provider notified?: Yes Primary care physician: Cody Perez MD Hospital Course: Final Diagnoses: Multiple recent falls secondary to reported increased generalized weakness, dizziness, (shortness of breath, decrease appetite, intermittent episodes of confusion-per note left by daughter at bedside ). subacute CVA;MRA of neck reported right ICA stenosis of 70% , however per review by vascular surgery, Dr. Christianson- disagrees with 70% stenosis and feels that is widely patent. Less than 50% stenosis of the left ICA. Brain MRI reported scattered microinfarcts involving the left posterior shay and left cerebellar hemisphere. Nonspecific white matter changes likely secondary to small vessel ischemic disease. PAD, recent Angio on Tuesday03/07/23 at [facility] Polymyalgia rheumatic, CAD, history of CABG History of patent foramen ovale Right carotid endarterectomy, history of TCAR,right common carotid artery endarterectomy, right cervical carotid angioplasty and stenting 08/24/[address] Sutton at [place] Hypertension Hyperlipidemia Diabetes mellitus type 2 History of CVA COPD Ongoing tobacco dependence, smokes cigars Aortic aneurysm repair 2017 Hospital course:This is a pleasant 82-year-old gentleman with past medical history significant for hypertension, hyperlipidemia, CAD, CABG, polymyalgia rheumatica, ongoing nicotine dependence-smokes 2-5 cigars daily, CVA, TIA, PAD, recent Angio Tuesday03/07/23 at [facility], brought into the ER with complaints of multiple falls, losing balance, dizziness, lightheadedness and multiple other medical issues. Patient reports over the last 2 weeks he has been losing his balance and having multiple falls at home. He reports that yesterday ,he became dizzy, fell over backwards at home, attempted to catch himself, caught the side of the couch-Denies head trauma. Denies chest pain, palpitations or shortness of breath. Reports he is on Plavix and aspirin for groin stent. Chest x-ray reported non acute. Afebrile, WBC 3.7, hemoglobin 12.2, platelets 126, d-dimer pending, sodium 140, potassium 4.2, bicarb 21, BUN 22, creatinine 0.47, glucose 218 magnesium 1.7, LFTs within normal limits, troponins negative 3. VSS,Maintaining O2 sats in the 90s on room air. 03/14/2023 Sitting up in chair, reports he feels much better . Slept well. Denies shortness of breath, cough or congestion. Denies chest tightness. Reports he ambulated, tolerated exertion well, with no lightheadedness dizziness or focal deficits.Negative for orthostatic hypotension, reported systolic blood pressures: 148/78 sitting, heart rate in the 60s, 155/90 , heart rate in the 80s standing. Neurology workup in progress; MRA of neck regarding carotid stenosis pending, brain and C-spine MRI pending, A1c 5.7. Echo reported preserved LV function, mild aortic stenosis, mean gradient of 10mmHg, chest CTA reported negative for pulmonary embolism, venous Doppler reported no evidence of DVT of the bilateral lower extremities from groin to upper calves. Hemoglobin yesterday 13.2, platelets 148. Cleared by cardiology for discharge. Evaluated by physical therapy with discharge recommendations of home. MRIs of neck,cspine, brain pending. 03/15/2023 neuro workup in progress, MRIs of neck,cspine, brain pending. This will sitting up in chair, denies any new symptoms. Denies any lightheadedness, dizziness or focal deficits. Reports he's ambulating in hallway, tolerating exertion well. Denies any current balance issues. He denies any focal deficits. Complains MRA of the neck and MRI of the head. MRA of the neck reported flow-limiting stenosis up to 70% in the right ICA. However, per vascular review ,does not appear to have flow-limiting stenosis stent is patent/agrees with less than 50% stenosis of the left ICA. MRI of the brain reported scattered microinfarcts involving the left posterior shay and left cerebellar hemisphere. Nonspecific white matter changes likely secondary to small vessel ischemic disease. Cardiology is following and patient scheduled for VAUGHN this afternoon. Significant clinical improvement. Patient will be discharged home pending final DC recommendations and clearance prior cardiology and neurology. Neurology is recommending discontinuing Plavix and prescribing Brilinta with ASA 81mg. The impression and plan of care has been dictated as directed. : I performed a history and examination of this patient, discussed the same with the dictator. I agree with the dictator's note ,documented as a scribe. Any additional findings or plans will be noted. Patient Condition at Discharge: Stable Plan - Discharge Summary Discharge Rx Participant: No New Discharge Prescriptions: New Ticagrelor [Brilinta] 90 mg PO BID #60 tab Pantoprazole Sodium [Protonix] 40 mg PO DAILY #30 tab Continue predniSONE 2.5 mg PO SUTUTHSA Cholecalciferol [Vitamin D3 (25 Mcg = 1000 Iu)] 25 mcg PO DAILY Atorvastatin [Lipitor] 80 mg PO HS Multi-Collagen 2 tab PO HS Mv-Mn/Om3/Dha/Epa/Fish/Lut/Erica [Ocuvite Adult 50 Plus Softgel] 1 cap PO DAILY Glucos Sul 2Kcl/MSM/Chond/C/Mn [Glucosamine Chondroitin Cap] 1 cap PO DAILY Ubidecarenone [Co Q-10] 400 mg PO DAILY lisinopriL [Zestril] 10 mg PO BID glipiZIDE XL [Glucotrol XL] 5 mg PO DAILY Vitamin B Complex 1 cap PO DAILY Multivit-Min/FA/Lycopen/Lutein [Centrum Silver Men Tablet] 1 tab PO DAILY Aspirin EC [Ecotrin Low Dose] 81 mg PO DAILY Discontinued Clopidogrel [Plavix] 75 mg PO DAILY #90 tab Meloxicam [Mobic] 7.5 mg PO BID Discharge Medication List predniSONE 2.5 mg PO SUTUTHSA 02/25/17 [History] Atorvastatin [Lipitor] 80 mg PO HS 10/22/22 [History] Cholecalciferol [Vitamin D3 (25 Mcg = 1000 Iu)] 25 mcg PO DAILY 10/22/22 [History] Glucos Sul 2Kcl/MSM/Chond/C/Mn [Glucosamine Chondroitin Cap] 1 cap PO DAILY 10/22/22 [History] Mv-Mn/Om3/Dha/Epa/Fish/Lut/Erica [Ocuvite Adult 50 Plus Softgel] 1 cap PO DAILY 10/22/22 [History] Ubidecarenone [Co Q-10] 400 mg PO DAILY 10/22/22 [History] glipiZIDE XL [Glucotrol XL] 5 mg PO DAILY 10/22/22 [History] lisinopriL [Zestril] 10 mg PO BID 10/22/22 [History] Aspirin EC [Ecotrin Low Dose] 81 mg PO DAILY 03/10/23 [History] Multi-Collagen 2 tab PO HS 03/10/23 [History] Multivit-Min/FA/Lycopen/Lutein [Centrum Silver Men Tablet] 1 tab PO DAILY 03/10/23 [History] Vitamin B Complex 1 cap PO DAILY 03/10/23 [History] Pantoprazole Sodium [Protonix] 40 mg PO DAILY #30 tab 03/14/23 [Rx] Ticagrelor [Brilinta] 90 mg PO BID #60 tab 03/16/23 [Rx] Follow up Appointment(s)/Referral(s): Navjot Hammer MD [STAFF PHYSICIAN] - 03/17/23 1:30 pm Syed Ruiz MD [STAFF PHYSICIAN] - 2 Weeks Cody Perez MD [Primary Care Provider] - 3 Days Activity/Diet/Wound Care/Special Instructions: Brilintal initiated as per neurology, Plavix discontinued
[2023-03-17] MEDS ORDERED: TICAGRELOR 90 MG TAB PO SCH (09:00)
== END 2023-03-16 17:21 | disposition home or self-care (01) | DRG 65 ==
LOC: EC 18:43 → 6NMEDSUR 22:17 → OBSVTOIN 03-14 10:42
PROVIDERS: ADMIT Family Medicine; ATTEND Family Medicine
DX: I63.19 Cerebral infarction due to embolism of other precerebral artery (principal); I25.3 Aneurysm of heart; Q21.12 Patent foramen ovale; I11.0 Hypertensive heart disease with heart failure; E11.51 Type 2 diabetes mellitus with diabetic peripheral angiopathy without gangrene; I50.9 Heart failure, unspecified; E86.0 Dehydration; D64.9 Anemia, unspecified; E78.5 Hyperlipidemia, unspecified; M35.3 Polymyalgia rheumatica; J44.9 Chronic obstructive pulmonary disease, unspecified; I70.0 Atherosclerosis of aorta; I08.0 Rheumatic disorders of both mitral and aortic valves; I70.202 Unspecified atherosclerosis of native arteries of extremities, left leg; R29.6 Repeated falls; F17.290 Nicotine dependence, other tobacco product, uncomplicated; I25.10 Atherosclerotic heart disease of native coronary artery without angina pectoris; H54.62 Unqualified visual loss, left eye, normal vision right eye; R41.0 Disorientation, unspecified; R09.02 Hypoxemia; R27.0 Ataxia, unspecified; W01.0XXA Fall on same level from slipping, tripping and stumbling without subsequent striking against object, initial encounter; Z95.828 Presence of other vascular implants and grafts; Z86.73 Personal history of transient ischemic attack (TIA), and cerebral infarction without residual deficits; Z79.02 Long term (current) use of antithrombotics/antiplatelets; Z95.1 Presence of aortocoronary bypass graft; I25.2 Old myocardial infarction; Z91.81 History of falling; Y92.009 Unspecified place in unspecified non-institutional (private) residence as the place of occurrence of the external cause; Z86.79 Personal history of other diseases of the circulatory system; Z79.899 Other long term (current) drug therapy; Z79.1 Long term (current) use of non-steroidal anti-inflammatories (NSAID); Z79.84 Long term (current) use of oral hypoglycemic drugs; Z79.82 Long term (current) use of aspirin; Z88.0 Allergy status to penicillin; Z95.5 Presence of coronary angioplasty implant and graft; Z82.3 Family history of stroke; Z82.49 Family history of ischemic heart disease and other diseases of the circulatory system
CPT/HCPCS: 36415; 36600; 70450; 70549; 70551; 71045; 71275; 80048; 80053; 80069; 81003; 82607; 82728; 82746; 82805; 83010; 83036; 83540; 83550; 83615; 83735; 83880; 84100; 84443; 84484; 85025; 85045; 85379; 85610; 85652; 85730; 93005; 93306; 93312; 93320; 93325; 93880; 93970; 94640; 94760; 96361; 96374; 96375; 99285

== ENCOUNTER → 2023-05-10 | Outpatient (CLI) | payer MEDICARE ==
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
== END ==
LOC: 3 N SLEEP 13:37
PROVIDERS: ATTEND Internal Medicine Critical Care Medicine
DX: G47.10 Hypersomnia, unspecified (principal); I11.0 Hypertensive heart disease with heart failure; I50.9 Heart failure, unspecified; I25.10 Atherosclerotic heart disease of native coronary artery without angina pectoris; E78.5 Hyperlipidemia, unspecified; E11.51 Type 2 diabetes mellitus with diabetic peripheral angiopathy without gangrene; M19.90 Unspecified osteoarthritis, unspecified site; I71.40 Abdominal aortic aneurysm, without rupture, unspecified; I77.9 Disorder of arteries and arterioles, unspecified; M35.3 Polymyalgia rheumatica; J44.9 Chronic obstructive pulmonary disease, unspecified; F17.200 Nicotine dependence, unspecified, uncomplicated; I25.2 Old myocardial infarction; Z95.1 Presence of aortocoronary bypass graft; Z79.899 Other long term (current) drug therapy; Z79.82 Long term (current) use of aspirin; Z88.0 Allergy status to penicillin; Z79.84 Long term (current) use of oral hypoglycemic drugs
CPT/HCPCS: 99211

== ENCOUNTER 2023-07-05 19:41 | Outpatient (CLI) | payer MEDICARE ==
--- NOTE | 2023-07-12 15:20 | SLS ---
SLEEP STUDY This patient was diagnosed having severe symptomatic obstructive sleep apnea with an AHI of 40. The patient is coming in for CPAP titration study. TECHNICAL DESCRIPTION: The sleep evaluation of the patient consisted of clinical polysomnography, nocturnal respiratory battery, left and right anterior tibialis surface electromyography. The standard montage for the clinical polysomnography included the EEG, EOG, EMG, and EKG. Respiratory battery included measurements of nasal/buccal airflow, thoracic, and/or abdominal effort and intercostal surface EMG. Nocturnal oxyhemoglobin saturations were obtained by finger oximetry. Digital video and audio monitoring were done throughout the entire night to check or parasomnias. Step-meza titration with positive airway pressure was utilized during the study to control the respiratory events. PERTINENT PHYSICAL FINDINGS: The patient's weight is 130 pounds with a BMI of 24.6. SLEEP CHARACTERISTICS: Total time in bed was 284.5 minutes. The total sleep time 361.5 minutes. The sleep efficiency was calculated to be at 94%. Latency to sleep onset is 4.5 minutes. Latency to REM sleep is 274 minutes and the patient's sleep architecture was characterized by 19.1% stage I, 79.9% stage II, 0% stage III, and 1% REM sleep. SLEEP CONTINUITY SUMMARY: The patient had a total of 188 arousals with an index of 31.2. Respiratory arousal index was 17.3. PERIODIC LIMB MOVEMENT: No significant periodic limb movement activity was noted. CARDIAC SUMMARY: Average heart rate was 75, minimum heart rate 67, maximum heart rate was 83. CPAP TITRATION SUMMARY: The patient was started on CPAP therapy initially at a pressure of 5 cm of water and pressure was gradually increased by increments of 2 cm to reach a maximum CPAP pressure of 17 cm of water. Note that there was improvement in the obstructive respiratory events with CPAP therapy especially at CPAP pressures of 17 cm of water. The patient continued to have a high apnea-hypopnea index at various CPAP pressures and there was a drop in apnea-hypopnea score significantly at pressures of 17 cm. Nevertheless, the patient continued to have some residual obstructive apneas and hypopneas. At a CPAP pressure of 17 cm, the patient's AHI was 17.7. There was improvement in oxygenation without any significant desaturations at the maximum CPAP pressure achieved. ASSESSMENT: 1. Severe symptomatic obstructive sleep apnea with an AHI of 40. The patient underwent CPAP titration with improvement in obstructive respiratory events while being on CPAP therapy, especially at a pressure of 17 cm of water. 2. Nocturnal oxygen desaturation recovered with CPAP therapy. 3. Sleep fragmentation with frequent nocturnal arousals, not related to obstructive respiratory events. 4. Chronic hypersomnia, Cord score of 20. 5. Comorbidities including coronary artery disease, bypass surgery, peripheral vascular disease, diabetes mellitus type 2, hypertension, hyperlipidemia, osteoarthritis, abdominal aortic aneurysm and polymyalgia. PLAN: The patient will be offered an APAP machine. The patient will be set at a minimum pressure of 10 and maximum pressure of 20 with a C-flex of 3. I will set up the patient with a ramp time of 5 minutes. The patient will be offered a small size Simplus full-face mask. Encourage maintaining a regular sleep schedule and optimizing sleep hygiene measures. The patient will see me back in 39 days in the office to assess clinical response and compliance and further adjustments will be done accordingly. For now, the patient was started on a CPAP therapy in APAP mode. Pressures of 10/20 cm of water. We will continue to follow. MMTATEL / KARENAN: [phone] /
== END 2023-07-06 19:00 | disposition home or self-care (01) ==
LOC: 3 N SLEEP 19:41
PROVIDERS: ATTEND Internal Medicine Critical Care Medicine
DX: G47.33 Obstructive sleep apnea (adult) (pediatric) (principal); G47.10 Hypersomnia, unspecified; I25.10 Atherosclerotic heart disease of native coronary artery without angina pectoris; E11.51 Type 2 diabetes mellitus with diabetic peripheral angiopathy without gangrene; I10 Essential (primary) hypertension; E78.5 Hyperlipidemia, unspecified; G47.36 Sleep related hypoventilation in conditions classified elsewhere; M19.90 Unspecified osteoarthritis, unspecified site; M35.3 Polymyalgia rheumatica; F17.200 Nicotine dependence, unspecified, uncomplicated; I71.40 Abdominal aortic aneurysm, without rupture, unspecified; Z95.1 Presence of aortocoronary bypass graft; Z88.0 Allergy status to penicillin; Z79.899 Other long term (current) drug therapy; Z79.82 Long term (current) use of aspirin; Z79.84 Long term (current) use of oral hypoglycemic drugs
CPT/HCPCS: 95811

== ENCOUNTER → 2023-08-30 | Outpatient (CLI) | payer MEDICARE ==
--- NOTE | 2023-08-30 15:20 | P.PN ---
Progress Note - Text Progress Note Date: 08/30/23 This is an 82-year-old male patient was coming to the see me for a follow-up regarding obstructive sleep apnea. The patient was diagnosed having severe symptomatic DIVYA with an AHI of 40. The patient underwent a CPAP titration titrations of was suboptimal. Noted the patient was released to a maximum pressure of 17 cm of water and at that time the patient was still having obstructive rest or events.Based on all this, the patient was given an APAP machine pressures of 10/20 cm of water. Initial machine that was given to him was not sending compliance data to the equipment company and that machine was replaced. I checked the most recent machine. I noticed that the patient was on APAP mode. Based on the degree that it has been collected between 07/31/2023 and 08/29/2023, the patient has utilized the machine 77% of the time and the patient has achieved more than 4 hours of usage 53% of the time. His average usage is around 5 hours and 40 minutes. The PT 95th percentile pressure is at 19.1. His AHI is down to 23. Central apnea index of 1.0. Rest such, even at the highest CPAP pressures delivered by the APAP mode, the patient was still having obstructive respiratory events. Is currently using a Simplus all facemask and the patient is having excessive leaks in the order of 105 L/m. This may account for his poor control of his obstructive respiratory events. No recent weight gain. The patient is seeing a difference while on treatment and the patient is committed to long-term CPAP therapy. BP is 180/90, pulse is 64, respirations 16, pulse ox 96% on room air oxygen, weight is 136 and Upham scores a 13 The patient appeared well nourished and normally developed. Vital signs as documented. Head exam is unremarkable. No scleral icterus or corneal arcus noted. Neck is without jugular venous distension, thyromegaly, or carotid bruits. Carotid upstrokes are brisk bilaterally. Lungs are clear to auscultation and percussion. Cardiac exam reveals the PMI to be normally sized and situated. Rhythm is regular. First and second heart sounds normal. No murmurs, rubs or gallops. Abdominal exam reveals normal bowel sounds, no masses, no organomegaly and no aortic enlargement. Extremities are nonedematous and both femoral and pedal pulses are normal.Examination of the skin revealed no evidence of significant rashes, suspicious appearing nevi or other concerning lesions.Neurologically, the patient is awake and alert and the patient does not have any focal neurological deficit. Cranial nerves are essentially intact. Assessment Severe symptomatic DIVYA with an AHI of 40. The patient's current on APAP pressures of 10/20 cm of water. Treatment response has been suboptimal and the patient is trying to achieve better compliancy. He is having excessive leaks around the mask and the patient currently is a full facemask, Simplus, and the patient continues to have some increased residual obstructive respiratory events while being on CPAP therapy. Based on all this, I recommended the following I'm keeping APAP mode pressures of 10/20 cm of water. I'm going to switch this patient to an Airfit F20 knee medium-size fullface mask. Appropriate education the mask fit was done. The patient will continue using his CPAP and and see me back in 30 days for another compliancy check and a morbidly good we'll going to meet insurance standards for compliancy within the next 30 days.
== END ==
LOC: 3 N SLEEP 14:20
PROVIDERS: ATTEND Internal Medicine Critical Care Medicine
DX: G47.33 Obstructive sleep apnea (adult) (pediatric) (principal); Z88.5 Allergy status to narcotic agent; Z79.82 Long term (current) use of aspirin; Z79.891 Long term (current) use of opiate analgesic
CPT/HCPCS: 99212

== ENCOUNTER → 2023-10-21 | Outpatient (CLI) | payer MEDICARE ==
[2023-10-21 16:10] LABS: ALT 21 U/L (10-49); AST 19 U/L (14-35); Albumin 4.4 g/dL (3.8-4.9); Alkaline Phosphatase 69 U/L (41-126); BUN/Creat Ratio 21.14 Ratio (12.00-20.00); Blood Urea Nitrogen 14.8 mg/dL (9.0-27.0); Calcium 9.9 mg/dL (8.7-10.3); Carbon Dioxide 26.5 mmol/L (21.6-31.8); Chloride 105 mmol/L (96-109); Chol/HDL Ratio 2.76 Ratio; Globulin 2.2 g/dL (1.6-3.3); Glucose 93 mg/dL (70-110); LDL Cholesterol,Calculated 58.4 mg/dL (0.0-131.0); Potassium 4.2 mmol/L (3.5-5.5); Sodium 142 mmol/L (135-145); Total Bilirubin 0.8 mg/dL (0.3-1.2); Total Protein 6.6 g/dL (6.2-8.2); VLDL Calculation 16.24 mg/dL (5.00-40.00)
== END | disposition home or self-care (01) ==
LOC: LABWHC1 09:12
PROVIDERS: ATTEND Internal Medicine Interventional Cardiology
DX: E78.2 Mixed hyperlipidemia (principal)
CPT/HCPCS: 36415; 80053; 80061

== ENCOUNTER → 2023-11-15 | Outpatient (CLI) | payer MEDICARE ==
--- NOTE | 2023-11-15 14:17 | P.PN ---
Progress Note - Text Progress Note Date: 11/15/23 On today's evaluation of 11/15/2023, I am seeing the patient for a short-term follow-up after some adjustments that were done on his CPAP machine. Noted during his last evaluation, the patient was partially treated and he was having ongoing respiratory events while being on his CPAP. Note that his baseline AHI is at 40 and the patient's AHI while on treatment was 23 and the patient was having excessive amount of leaks in the order of 105 L/min. Based on that, the appropriate modification was done. The patient was switched to an APAP mode pressures of 10/20 cm of water and the patient was also given the AirFit F20 fullface mask medium size. On today's evaluation, the patient is doing better. Based on a 30-day compliancy, the patient has been utilizing his machine every night and he has achieved more than 4 hours usage 100% of the time averaging around 7.4 hours of CPAP use per night and the P90 5th percentile pressure is at 18.3. His AHI is down to 8.2 and the leak is in order of 18 L/min. He has no specific complaints. Is waking up much more alert and awake during the day. He is able to tolerate the current settings without having any major difficulties. His weight is 138 pounds which is essentially comparable to his most recent body weight. He is going to bed around 10:30 PM and getting out of bed at 6 AM in the morning. No naps during the day Medication includes lisinopril 10 mg p.o. daily, meloxicam 7.5 mg p.o. twice a day, Protonix 40 mg p.o. daily, glipizide XL 5 mg p.o. daily, Lipitor 40 mg p.o. daily, Plavix 75 mg p.o. daily, baby aspirin 81 mg p.o. daily and the patient is also on low-dose prednisone at 5 mg on a daily basis Review of systems A 14 point review of system was done and the positive findings were mentioned above history of present illness. No major hypersomnia or sleepiness during the day. Is able to tolerate the CPAP more effectively. No morning headaches. No excessive hypersomnia or sleepiness. No falls. No altered mentation. No anxiety. No depression. No chest pain or shortness of breath or cough. No angina or palpitations. BP is 164/80 with a pulse of 62 and respiration of 16 and a temperature of 98.0. Weight is 138 pounds and the patient has an Marty score of 12. Pulse ox 98% on room air oxygen The patient appeared well nourished and normally developed. Vital signs as documented. Head exam is unremarkable. No scleral icterus or corneal arcus noted. Neck is without jugular venous distension, thyromegaly, or carotid bruits. Carotid upstrokes are brisk bilaterally. Lungs are clear to auscultation and percussion. Cardiac exam reveals the PMI to be normally sized and situated. Rhythm is regular. First and second heart sounds normal. No murmurs, rubs or gallops. Abdominal exam reveals normal bowel sounds, no masses, no organomegaly and no aortic enlargement. Extremities are nonedematous and both femoral and pedal pulses are normal. Examination of the skin revealed no evidence of significant rashes, suspicious appearing nevi or other concerning lesions. Neurologically, the patient is awake and alert and the patient does not have any focal neurological deficit. Cranial nerves are essentially intact. Assessment Severe symptomatic DIVYA with an AHI of 40. The patient is undergoing therapy and his treatment has become more successful and effective at this point in time and the patient is currently on APAP mode pressures of 10/20 cm of water utilizing the AirFit F20 fullface mask medium size. Leaks are controlled. AHI while on treatment is significantly lowered Plan Treatment will be continued the same pressure setting. Treatment is much more successful at this point. Continue APAP mode pressures of 10/20 cm of water and keep the patient on AirFit F20 fullface mask. The patient was seen back in follow-up in a years time. Treatment is successful. No need for any further adjustments.
== END ==
LOC: 3 N SLEEP 13:14
PROVIDERS: ATTEND Internal Medicine Critical Care Medicine
DX: G47.33 Obstructive sleep apnea (adult) (pediatric) (principal); F17.200 Nicotine dependence, unspecified, uncomplicated; Z88.0 Allergy status to penicillin
CPT/HCPCS: 99212

== ENCOUNTER → 2024-01-06 | Outpatient (CLI) | payer MEDICARE ==
--- NOTE | 2024-01-09 15:27 | BD ---
EXAMINATION TYPE: Axial Bone Density DATE OF EXAM: 01/06/2024 CLINICAL HISTORY: 83 years old Male. ICD-10 CODE: T38.0X5A ADVERSE EFFECT OF GLUCOCORT M8.1 OSTEO Height: 61.25 Weight: 137.0 FRAX RISK QUESTIONS: Alcohol (3 or more units per day): no Family History (Parent hip fracture): no Glucocorticoids (More than 3mos): Prednisone daily past 15 years History of Fracture in Adulthood: Ribs Secondary Osteoporosis: 1. Type 1 Diabetes: no 2. Hyperthyroidism: no 3. Menopause before 45: na 4. Malnutrition: no 5. Chronic liver disease: no Rheumatoid Arthritis: no Current Tobacco Use: no RISK FACTORS HISTORY OF: Hip Fracture (Right/Left): no Spine Fracture: no History of Wrist Fracture: no Surgery to Spine/Hip(right/left)/Wrist (right/left): no MEDICATIONS: Thyroid Medications: no Osteoporosis Medications: no EXAM MEASUREMENTS: Bone mineral densitometry was performed using the [employer]. Bone mineral density as measured about the Lumbar spine is: ----- L1-L4(G/cm2): 1.323 T Score Values are as follows: ----- L1: -1.4 ----- L2: -0.6 ----- L3: 3.3 ----- L4: 3.6 ----- L1-L4: 1.2 Z Score Values are as follows: ----- L1: -0.4 ----- L2: 0.3 ----- L3: 4.2 ----- L4: 4.5 ----- L1-L4: 2.1 Bone mineral density has: decreased -3.8 % since study of: 08/24/21 Bone mineral density about the R hip (g/cm2): 0.786 Bone mineral density about the L hip (g/cm2): 0.846 T Score values are as follows: -----R Neck: -1.7 -----L Neck: -2.0 -----R Total: -1.8 -----L Total: -1.3 Z Score values are as follows: -----R Neck: -0.1 -----L Neck: -0.4 -----R Total: -0.6 -----L Total: -0.2 Bone mineral density has: decreased -8.1 % since study of: 08/24/2021 FRAX%s: The graph provided illustrates a 14.4% chance for a major osteoporotic fx and a 7.1% chance f or the hips probability for fx in 10 years time. IMPRESSION: Osteopenia (T Score between -2.5 and -1). There is slightly increased risk of fracture and the patient may be considered for treatment. Re-Screen 2-5 years. NOTE: T-SCORE=SD OF THE YOUNG ADULT MEAN.
== END | disposition home or self-care (01) ==
LOC: RADBDWWP 14:26
PROVIDERS: ATTEND Internal Medicine Rheumatology
DX: M85.89 Other specified disorders of bone density and structure, multiple sites (principal); M81.8 Other osteoporosis without current pathological fracture; T38.0X5A Adverse effect of glucocorticoids and synthetic analogues, initial encounter
CPT/HCPCS: 77080

== ENCOUNTER → 2025-04-24 | Outpatient (CLI) | payer MEDICARE ==
--- NOTE | 2025-04-24 20:46 | MR ---
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 Diffusion weighted imaging is performed. Additional multiplanar, multisequence images of the c ervical spine without IV contrast. FINDINGS: BRAIN: No evidence for acute infarction, hemorrhage, mass, mass effect, midline shift, herniation, effacemen t of basal cisterns, or extra-axial fluid collection. Redemonstrated moderate hydrocephalus with Ismael's ratio calculated at 0.43, not significantly changed from 2022. Additional moderate generalized supratentorial volume loss. Dominant left vertebral artery. T2/FLAIR weighted sequences show moderate patchy and confluent white matter changes throughout both c erebral hemispheres. Midline structures demonstrate normal morphology. The craniocervical junction is normal. Rightward nasal septal deviation. Moderate mucosal thickening ethmoid air cells. Trace [place] ick[place] floors of the maxillary sinuses. CERVICAL SPINE: No craniocervical junction abnormality, predental space widening, or prevertebral soft tissue swellin g. There is mild multilevel degenerative disc disease with desiccated disks and small disc osteophyte co mplex formation. More moderate degenerative change at C7-T1. Ligamentum flavum thickening particularly C3-C4, C4-C5, C5-C6. There is moderate hypertrophic facet and uncovertebral joint arthropathy throughout. Changes result in a degenerative grade 1 anterolisthesis at C6-C7. Remainder of the alignment is main tained. No suspicious bone marrow replacement. Accommodation of minimal disc ossified complex and ligamentum flavum thickening and C4-C5 mildly narr ows the spinal canal. No significant mass effect on the cord. At C3-C4, changes result in moderate right and mild left neuroforaminal stenosis. At C4-C5, changes result in moderate to severe right and moderate left neural foraminal stenosis. At C5-C6, changes result in moderate to severe left and mild right neuroforaminal stenosis. At C6-C7, changes result in severe right and moderate left neural foraminal stenosis. At C7-T1, changes result in moderate left greater than right neural foraminal stenosis. There is artifact projecting over the cervical spinal cord. When correlating with axial series, no co nvincing myelopathic cord signal change. IMPRESSION: BRAIN: 1. Moderate hydrocephalus, not significantly changed from 03/15/2023, in keeping with patient's histor y of NPH. 2. Additional moderate generalized cerebral atrophy. Moderate confluent burden of chronic small vesse l ischemic disease shows some progression from 2022. 3. No acute intracranial abnormality seen. CERVICAL SPINE: 4. Mild multilevel degenerative disc disease, more moderate at C7-T1. 5. Additional moderate hypertrophic facet and uncovertebral joint arthropathy. Degenerative grade 1 a nterolisthesis at C6-C7. 5. Overall mild narrowing of the spinal canal at C4-C5. No significant spinal canal stenosis or cord compression is seen. 6. Variable moderate to severe neuroforaminal stenoses as outlined above. [facility], Workstation: [facility], 04/24/2025 8:44 PM
== END | disposition home or self-care (01) ==
LOC: RADMRIMAIN 10:59
PROVIDERS: ATTEND Psychiatry & Neurology Neurology
DX: M48.02 Spinal stenosis, cervical region (principal); M50.33 Other cervical disc degeneration, cervicothoracic region; G91.2 (Idiopathic) normal pressure hydrocephalus; G95.29 Other cord compression; G91.9 Hydrocephalus, unspecified; I67.82 Cerebral ischemia
CPT/HCPCS: 70551; 72141